=== PATIENT | female | born 1960 | race Caucasian/White ===

== ENCOUNTER 2022-05-11 12:45 | Outpatient (RCR) | payer MEDICARE, SELFPAY ==
[2022-04-23 14:03] VITALS: BP 122/70; PULSE 88; TEMP 36.4
[2022-04-23 14:08] VITALS: BMI 31.1
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
--- NOTE | 2022-04-27 13:12 | HO.PHP ---
The client called out dues to not feeling comfortable driving in the snow.
--- NOTE | 2022-04-30 11:12 | P.PNPSP_ITS ---
Subjective Subjective Date of Service: 04/30/22 Reason For Visit: MDD Medical Problems Affecting Mental Status: No Interim History: Continues with depressed mood. No SI, feels safe. Stopped gabapentin, did not like effect. Stopped olanzapine at bedtime, did not like effect. Feels Wellbutrin is not helping with depression symptoms. Has chronic pain due to right torn rotator cuff, arthritic knees. Feels pain is contributing to mood. Finding groups helpful. Medication Compliance: Intermittent Side effects from medications: No Attending Groups: Yes Review of Systems Acute medical concerns: No Medical Review of Systems: unchanged Review of Systems Review of Systems Continues with chronic pain, namely arthritic knees and right shoulder. Yes all other systems are reviewed and are negative Constitutional: Reports body ache(s) Musculoskeletal: Reports arthralgias Comments: right shoulder, bilateral knees Mental Status Exam Mental Status Exam Narrative: NAD. Tearful at times. Patient Appearance: Appropriate Patient Orientation: Person, Place, Time and Situation Level of Consciousness: Appropriate Patient Behavior: Appropriate, Cooperative and Good Eye Contact Mood Description: Depressed Affect Description: Depressed Patient Cognition Impaired: No Ability to Follow Directions: Excellent Speech Pattern: Clear Memory Description: Intact Hallucinations: None Delusions: Not Present Thought Process: Intact Thought Content: positive for Intact Depressive Symptoms: Increased Anxiety, Increased Irritability, Crying Spells, Loss of Int. in Activity, Hopelessness, Unhappiness, Increased Fatigue, Thoughts of /Suicide and Loss of Energy Judgement: Fair Diagnostics Vital Signs (24Hr): BMI result Body Mass Index 31.1 Assessment & Plan Assessment & Plan (1) Major depressive disorder, recurrent severe without psychotic features: Status: Acute Code(s): F33.2 - Major depressive disorder, recurrent severe without psychotic features Assessment and Plan: Continues with depressed mood. Stopped gabapentin and olanzapine, did not like effect. No SI, feels safe. Feels Wellbutrin is not helping with depression symptoms. Reports she will continue taking it at this time. Has chronic pain due to right torn rotator cuff, arthritic knees, which she feels is making her mood worsen. Finding groups helpful. Discussed the many medications she has tried in the past. She has stopped multiple medications over the years due to side effects, ineffectiveness. Patient states she does not like taking medications due to this. Discussed TMS as an option. She is interested in pursuing this. TMS brochure given, referral to [facility] T[facility] to be placed. Also discussed chronic pain. Patient was advised to ask her primary care provider for a referral to pain management. She stated that she would look into this. Plan 1. Continue with current [facility] plan of care. 2. TMS referral. 3. Continue Wellbutrin as ordered. 4. Follow-up as per protocol. Patient educated on: diagnosis, medication risk/benefits and therapeutic strategies Informed Consent: understands Reason for contiued partial hosp. stay Substantial Risk for: harm to self, inability to function and rapid decompensation Certification I certify that partial hospital treatment is medically necessary due to the symptoms and problems resulting from the patient's mental illness and the failure to treat the patient at the partial hospital level of care would likely result in the patient requiring inpatient psychiatric care which could not be prevented at a less intensive level of care. Total time managing care of this patient today __20__ minutes. Discharge Plan Discharge Attending provider: Dave Mendoza Medications: Discontinued olanzapine 2.5 mg tablet 1 tab PO BEDTIME No Action levothyroxine 125 mcg tablet 1 tab PO QAM olmesartan 5 mg tablet 2 tab PO DAILY bupropion HCl 300 mg tablet extended release 24 hr 1 tab PO DAILY
--- NOTE | 2022-04-30 11:39 | PC.NURSE ---
I supported Maddi in calling Dr Reyna Neal's office to see if they could cover her medical medication refills until her new PCP appointment in August 2022 as patient lost her insurance and now has a new insurance that Dr. Neal's office does not take. The Dr Neal's office is working with her to fill her medical medications until her new PCP appointment in August. She was told she should have a new prescription refill by 1:30 today.
--- NOTE | 2022-05-05 15:13 | HO.PHP ---
I called the client to discuss a statement that she made to staff after engaging in a group about discharge planning. Lorrie had been actively engaged in groups all day. In the wrap up group she stated that she will be safe and made a plan to take a bath shower this evening to help her physical pain. After the last group she stated that when she talks about discharge she could soot herself in the head. The staff questioned her and she stated that she will be safe. I call to check in and left a message to call me.
--- NOTE | 2022-05-05 16:05 | HO.PHP ---
Lorrie returned my call. She stated that she is safe and was just frustrated by her situation and her level of depression. We discussed calling crisis if needed . She states that she will if needed but she is planning on coming to [facility] tomorrow and will be safe. She had just returned from grocery shopping.
--- NOTE | 2022-05-06 10:58 | HO.PHPPROGNO ---
Subjective Subjective Date of Service: 05/06/22 Reason For Visit: MDD Medical Problems Affecting Mental Status: No Interim History: Continues with depression, anxiety, but states she feels a little better than yesterday . Denies SI. Says she has passive SI at times, but not consistently, and has no plan or intent. Feels safe. Reports she gets irritable, angry at times , says less so currently. Looks forward to TMS referral. Medication Compliance: Yes Side effects from medications: No Attending Groups: Yes Review of Systems Acute medical concerns: No Medical Review of Systems: unchanged Review of Systems Review of Systems Yes all other systems are reviewed and are negative Constitutional: Reports no additional constitutional complaints Mental Status Exam Mental Status Exam Narrative: NAD. Patient Appearance: Appropriate Patient Orientation: Person, Place, Time and Situation Level of Consciousness: Appropriate Patient Behavior: Appropriate, Cooperative and Good Eye Contact Mood Description: Depressed and Anxious Affect Description: Depressed Patient Cognition Impaired: No Ability to Follow Directions: Excellent Speech Pattern: Clear Memory Description: Intact Hallucinations: None Delusions: Not Present Thought Process: Intact Thought Content: positive for Intact and positive for Suicidal Ideation (describes as passive, at times, fleeting, no intent/plan) Depressive Symptoms: Increased Anxiety, Increased Irritability, Loss of Int. in Activity, Increased Fatigue and Thoughts of /Suicide Judgement: Fair Diagnostics Vital Signs (24Hr): BMI result Body Mass Index 31.1 Assessment & Plan Assessment & Plan (1) Major depressive disorder, recurrent severe without psychotic features: Status: Acute Code(s): F33.2 - Major depressive disorder, recurrent severe without psychotic features Assessment and Plan: Continues with depressed mood/affect, some anxiety / irritability at times. Overall she states she feels she is making progress. No SI currently, but does acknowledge having some passive SI at times, with no plan/intent. Looking forward to TMS consult, as she has tried multiple antidepressant medications, with little success. Continues with some pain, plans to call her pcp office to ask for referral to pain clinic. Finding current medications, [facility] groups brandi. (2) Cannabis abuse: Status: Acute Code(s): F12.10 - Cannabis abuse, uncomplicated Assessment and Plan: Has cut down cannabis use, no concerns at this time. Plan 1. Continue with current PHP plan of care. 2. Continue with medications as currently prescribed. 3. TMS referral. 4. Follow-up as per protocol. Patient educated on: diagnosis, medication risk/benefits and therapeutic strategies Informed Consent: understands Reason for contiued partial hosp. stay Substantial Risk for: harm to self, inability to function and rapid decompensation Certification I certify that partial hospital treatment is medically necessary due to the symptoms and problems resulting from the patient's mental illness and the failure to treat the patient at the partial hospital level of care would likely result in the patient requiring inpatient psychiatric care which could not be prevented at a less intensive level of care. Total time managing care of this patient today __20__ minutes. Discharge Plan Discharge Attending provider: Dave Mendoza Medications: New bupropion HCl 300 mg tablet extended release 24 hr 300 mg PO QAM Qty: 30 0RF Discontinued olanzapine 2.5 mg tablet 1 tab PO BEDTIME bupropion HCl 300 mg tablet extended release 24 hr 1 tab PO DAILY No Action levothyroxine 125 mcg tablet 1 tab PO QAM olmesartan 5 mg tablet 2 tab PO DAILY
--- NOTE | 2022-05-10 15:05 | HO.PHP ---
Lorrie called out sick.
--- NOTE | 2022-05-11 11:37 | HO.PHPPROGNO ---
Subjective Subjective Date of Service: 05/11/22 Reason For Visit: MDD Medical Problems Affecting Mental Status: No Interim History: Continues depressed, tearful during encounter SI with plan, denies intent. States that she feels safe. Feels Wellbutrin is not effective. Considering inpatient level of care, as she feels she is not getting better. Finding PHP/groups helpful. Medication Compliance: Yes Side effects from medications: No Attending Groups: Yes Review of Systems Acute medical concerns: No Medical Review of Systems: unchanged Review of Systems Review of Systems Yes all other systems are reviewed and are negative Constitutional: Reports no additional constitutional complaints Mental Status Exam Mental Status Exam Narrative: Tearful throughout encounter. Reports SI with a plan, denies any intent to harm herself in any way at this time. Patient Appearance: Appropriate Patient Orientation: Person, Place, Time and Situation Level of Consciousness: Appropriate Patient Behavior: Appropriate, Cooperative, Good Eye Contact and Crying Mood Description: Depressed Affect Description: Depressed Patient Cognition Impaired: No Ability to Follow Directions: Excellent Speech Pattern: Clear Memory Description: Intact Hallucinations: None Delusions: Not Present Thought Process: Intact Thought Content: positive for Intact and positive for Suicidal Ideation (has plan, no intent) Depressive Symptoms: Increased Anxiety, Increased Irritability, Loss of Int. in Activity, Hopelessness, Isolating-Friends/Family, Unhappiness, Increased Fatigue and Thoughts of /Suicide Judgement: Fair Diagnostics Vital Signs (24Hr): BMI result Body Mass Index 31.1 Assessment & Plan Assessment & Plan (1) Major depressive disorder, recurrent severe without psychotic features: Status: Acute Code(s): F33.2 - Major depressive disorder, recurrent severe without psychotic features Assessment and Plan: Patient presents with depressed mood an affect. Tearful throughout encounter. Reports that she wakes up in the morning crying, states ?it has been happening a lot, it is really hard ?. Reports that she feels exhausted. Current SI with a plan, no intent to harm herself at this time. Reports that she feels safe. Has packed bag at home to go inpatient, as she feels her symptoms have not improved. We discussed possibility of crisis eval here today. She reports that she feels safe today, and will come back tomorrow morning with her back, for possible crisis eval. Reports that she paid her rent, had her car inspected, in case she needs inpatient level of care. Requesting decrease in Wellbutrin. We discussed holding off on this today, as she has been struggling with depressive symptoms. Discussed revisiting this tomorrow morning. Plan 1. Continue with current [facility] plan of care. 2. Put patient on crisis alert. 3. [facility] team aware. 4. Follow-up tomorrow morning. Patient educated on: diagnosis, medication risk/benefits and therapeutic strategies Informed Consent: understands Reason for contiued partial hosp. stay Substantial Risk for: harm to self, inability to function and rapid decompensation Certification I certify that partial hospital treatment is medically necessary due to the symptoms and problems resulting from the patient's mental illness and the failure to treat the patient at the partial hospital level of care would likely result in the patient requiring inpatient psychiatric care which could not be prevented at a less intensive level of care. Total time managing care of this patient today __30_ minutes. Discharge Plan Discharge Attending provider: Dave Mendoza Medications: New bupropion HCl 300 mg tablet extended release 24 hr 300 mg PO QAM Qty: 30 0RF Discontinued olanzapine 2.5 mg tablet 1 tab PO BEDTIME bupropion HCl 300 mg tablet extended release 24 hr 1 tab PO DAILY No Action levothyroxine 125 mcg tablet 1 tab PO QAM olmesartan 5 mg tablet 2 tab PO DAILY
--- NOTE | 2022-05-12 09:13 | PC.NURSE ---
Maddi presented with depressed mood and tearful affect. [facility] staff Concepción Jin walked patient from the program to the ER for a crisis evaluation. I spoke to Radha RN in the behavioral health pod to give her a nurse to nurse however she stated the pod is full and to talk the ER charge nurse. I gave a nurse to nurse report to charge nurse Tonya in the ER. She stated the patient is in the ER at present.
== END 2022-05-12 23:59 | disposition admitted as inpatient to this hospital (09) ==
LOC: HO.PHPA 12:45
PROVIDERS: Visit Provider Psychiatry & Neurology Psychiatry
DX: F33.2 Major depressive disorder, recurrent severe without psychotic features (principal); F63.0 Pathological gambling; F12.10 Cannabis abuse, uncomplicated
CPT/HCPCS: 90791; 90853

== ENCOUNTER 2022-05-12 09:09 | Emergency (ER) | payer MEDICARE, SELFPAY ==
--- NOTE | 2022-05-12 07:45 | ECG_ITS ---
Test Reason : MED CLEARANCE Blood Pressure : / mmHG Vent. Rate : 086 BPM Atrial Rate : 086 BPM P-R Int : 150 ms QRS Dur : 078 ms QT Int : 350 ms P-R-T Axes : 072 -02 026 degrees QTc Int : 418 ms Normal sinus rhythm Low voltage QRS Inferior infarct , age undetermined - could be normal variant Abnormal ECG No previous ECGs available Referred By: Nereida Munoz Electronically Signed By:ARGENIS JACOME
[2022-05-12 09:22] VITALS: BP 152/89; PULSE 80; RESP 16; TEMP 36.2; O2SAT 98; BMI 30.1
[2022-05-12 10:00] LABS: Hemoglobin 12.8 g/dl (12.0-16.0); Mean Corpuscular HGB Conc 32.8 g/dl (31.0-35.0); Mean Corpuscular Hemoglobin 28.6 pg (27.0-33.0); Mean Corpuscular Volume 87.1 fL (80.0-98.0); Mean Platelet Volume 9.5 fL (9.4-12.3); Platelet Count 318 X10*3/uL (160-400); Red Blood Count 4.48 X10*6/uL (4.20-5.50); Red Cell Distribution Width 13.9 % (11.0-16.0); White Blood Count 7.6 X10*3/uL (4.8-10.8)
[2022-05-12 10:15] LABS: Anion Gap 13 (12-20); Blood Urea Nitrogen 25 mg/dL (9-16); Calcium 9.3 mg/dL (8.4-10.2); Carbon Dioxide 21 mmol/L (22-29); Chloride 111 mmol/L (96-108); Creatinine Clr Calc Pharmacy 54.9; Estimated Glomerular Filt Rate 54; Glucose Random 88 mg/dL (60-115); Potassium 4.8 mmol/L (3.3-5.1); Sodium 140 mmol/L (135-145)
--- NOTE | 2022-05-12 10:20 | ED_ITS ---
HPI - Psych General Chief Complaint: Psychiatric Symptoms Stated Complaint: Crisis Time Seen by Provider: 05/12/22 09:37 History of Present Illness HPI Narrative: Patient is a 62-year-old female with a history of depression currently on an outpatient program. Patient state she still feel very depressed despite her medication in her outpatient treatment. At thoughts about killing herself by using her car. Patient came to the emergency department instead. Related Data Home Medications Medication Instructions Recorded Confirmed levothyroxine 125 mcg tablet 1 tab PO QAM 04/23/22 04/23/22 olmesartan 5 mg tablet 2 tab PO DAILY 04/23/22 04/23/22 Previous Rx's Medication Instructions Recorded bupropion HCl 300 mg 24 hr tablet, 300 mg PO QAM #30 tabs 05/04/22 extended release Allergies Allergy/AdvReac Type Severity Reaction Status Date / Time No Known Allergies Allergy Verified 05/12/22 09:13 Review of Systems Review of Systems: No fever no chills no chest pain or shortness breath no recreational drug use. No alcohol Yes all other systems are reviewed and are negative [facility] Past Medical History Attestation statement: The following information was validated with the patient. Medical History Borderline high cholesterol Hypertension Hypothyroidism Surgical History H/O left knee surgery H/O rotator cuff surgery Social History Social History Household Members: None Patient Tobacco Use Status: Current everyday Tobacco user Smoked in Last 30 Days: Yes Use of substances other than those prescribed or required for medical reasons: Yes Substance Use Type: Marijuana Advance Directives: No Advance Directives Information Provided: Yes Healthcare Proxy: No Guardian: No Physical Exam Vital Signs: Vital Signs: Last Vital Signs Temp 98.4 F 05/12/22 14:05 Pulse 91 05/12/22 14:05 Resp 16 05/12/22 14:05 BP 116/70 05/12/22 14:05 Pulse Ox 95 05/12/22 14:05 O2 Del Method 05/12/22 14:05 BMI result Body Mass Index 30.1 Appearance: Alert. Oriented X3. No acute distress. Eyes: Pupils equal, round and reactive to light. ENT: Pharynx normal. Neck: Normal inspection. Neck supple. No lymph nodes noted. No crepitus CVS: Normal heart rate and rhythm. Pulses normal. Normal S1 and S2 Respiratory: No respiratory distress. Breath sounds normal. No Wheezing. No rales Abdomen: Soft and nontender. No rigidity. No distention. good BS x4 Skin: Skin warm and dry. Normal skin color. Normal skin turgor. Extremities: No lower extremity edema. Neurovascular intact to all extremities. No Lacerations. No Rash Neuro: Oriented X 3. No motor deficit. No sensory deficit. Moving all extermities. No slurred speech Medical Decision Making Medical Decision Making MDM Narrative: Positive suicidal ideation. Patient's alcohol was negative. Positive cannabis on tox screen. Neurologically intact. Had SI by [place] her [place] the [place]. Feel very depressed secondary to her living situation. Awaiting crisis evaluation. Currently medically cleared Differential Diagnosis Depression anxiety suicidal ideation Lab Data [facility] Lab Attestation statement: I reviewed the patient's lab results. 05/12/22 09:48 05/12/22 09:48 Labs: Lab Results 05/12/22 05/12/22 05/12/22 Range/Units 09:48 09:48 09:48 WBC 7.6 (4.8-10.8) X10*3/uL RBC 4.48 (4.20-5.50) X10*6/uL Hgb 12.8 (12.0-16.0) g/dl Hct 39.0 (37.0-47.0) % MCV 87.1 (80.0-98.0) fL MCH 28.6 (27.0-33.0) pg MCHC 32.8 (31.0-35.0) g/dl RDW 13.9 (11.0-16.0) % Plt Count 318 (160-400) X10*3/uL MPV 9.5 (9.4-12.3) fL Absolute Nucleated RBC 0.000 (0.0-0.012) X10*3/uL Nucleated RBC % (auto) 0.0 (0.0-0.2) /100WBC Sodium 140 (135-145) mmol/L Potassium 4.8 (3.3-5.1) mmol/L Chloride 111 H (96-108) mmol/L Carbon Dioxide 21 L (22-29) mmol/L Anion Gap 13 (12-20) BUN 25 H (9-16) mg/dL Creatinine 1.03 (0.5-1.4) mg/dL Estim Creat Clear Calc 54.9 Estimated GFR 54 Random Glucose 88 (60-115) mg/dL Calcium 9.3 (8.4-10.2) mg/dL Urine Color Urine Appearance Urine pH (5.0-9.0) Ur Specific Brady (1.005-1.025) Urine Protein (Neg-Trace) mg/dL Urine Glucose (UA) (Negative) mg/dL Urine Ketones (Negative) mg/dL Urine Blood (Negative) Urine Nitrite (Negative) Ur Leukocyte Esterase (Negative) Urine Opiates Screen (Not Detect) Urine Fentanyl Screen (Not Detect) Ur Barbiturates Screen (Not Detect) Ur Phencyclidine Scrn (Not Detect) Ur Amphetamines Screen (Not Detect) U Benzodiazepines Scrn (Not Detect) Urine Cocaine Screen (Not Detect) U Marijuana (THC) Screen (Not Detect) COVID-19 (RAJINDER) Negative (Negative) COVID-19 Clin Com See Note 05/12/22 05/12/22 Range/Units 10:59 10:59 WBC (4.8-10.8) X10*3/uL RBC (4.20-5.50) X10*6/uL Hgb (12.0-16.0) g/dl Hct (37.0-47.0) % MCV (80.0-98.0) fL MCH (27.0-33.0) pg MCHC (31.0-35.0) g/dl RDW (11.0-16.0) % Plt Count (160-400) X10*3/uL MPV (9.4-12.3) fL Absolute Nucleated RBC (0.0-0.012) X10*3/uL Nucleated RBC % (auto) (0.0-0.2) /100WBC Sodium (135-145) mmol/L Potassium (3.3-5.1) mmol/L Chloride (96-108) mmol/L Carbon Dioxide (22-29) mmol/L Anion Gap (12-20) BUN (9-16) mg/dL Creatinine (0.5-1.4) mg/dL Estim Creat Clear Calc Estimated GFR Random Glucose (60-115) mg/dL Calcium (8.4-10.2) mg/dL Urine Color Yellow Urine Appearance Clear Urine pH 6.0 (5.0-9.0) Ur Specific Brady 1.010 (1.005-1.025) Urine Protein Negative (Neg-Trace) mg/dL Urine Glucose (UA) Negative (Negative) mg/dL Urine Ketones Negative (Negative) mg/dL Urine Blood Negative (Negative) Urine Nitrite Negative (Negative) Ur Leukocyte Esterase Negative (Negative) Urine Opiates Screen Not Detected (Not Detect) Urine Fentanyl Screen Not Detected (Not Detect) Ur Barbiturates Screen Not Detected (Not Detect) Ur Phencyclidine Scrn Not Detected (Not Detect) Ur Amphetamines Screen Not Detected (Not Detect) U Benzodiazepines Scrn Not Detected (Not Detect) Urine Cocaine Screen Not Detected (Not Detect) U Marijuana (THC) Screen POSITIVE H (Not Detect) COVID-19 (RAJINDER) (Negative) COVID-19 Clin Com Discharge Plan Discharge Clinical Impression: Depression Patient Disposition: Still a Patient Prescriptions: No Action levothyroxine 125 mcg tablet 1 tab PO QAM olmesartan 5 mg tablet 2 tab PO DAILY bupropion HCl 300 mg tablet extended release 24 hr 300 mg PO QAM Qty: 30 0RF Interventions: [place]-Suicide Risk Severity Scale Last Done: 05/12/22 13:53
[2022-05-12 10:32] LABS: COVID-19 Test Negative (Negative); IDNOW Serial# BCCEAD1C
[2022-05-12 11:08] LABS: Appearance Urine Clear; Color Urine Yellow; Glucose Urine UA Negative (Negative); Leukocyte Esterase Urine Negative (Negative); Nitrite Urine Negative (Negative); Urine Blood Negative (Negative); Urine Ketones Negative (Negative); Urine Protein Negative (Neg-Trace)
[2022-05-12 11:19] LABS: Amphetamine Screen Urine Not Detected (Not Detect); Barbiturates, Urine Not Detected (Not Detect); Benzodiazepines Screen Urine Not Detected (Not Detect); Cannabinoid Screen Urine POSITIVE (Not Detect); Cocaine Screen Urine Not Detected (Not Detect); Fentanyl, urine Not Detected (Not Detect); Opiate Screen Urine Not Detected (Not Detect); Phencyclidine Screen Urine Not Detected (Not Detect)
[2022-05-12 14:05] VITALS: BP 116/70; PULSE 91; RESP 16; TEMP 36.9; O2SAT 95
--- NOTE | 2022-05-12 17:18 | PC.NURSE ---
preliminary med rec completed.
[2022-05-12 20:57] VITALS: BP 110/73; PULSE 85; RESP 20; TEMP 36.1; O2SAT 96
[2022-05-13 01:30] VITALS: BP 124/70; PULSE 92; RESP 18; TEMP 36.2; O2SAT 97
--- NOTE | 2022-05-13 05:58 | PC.NURSE ---
Patient slept intermittently through the night, currently sleeping, no behavior concern at this time but unpredictable, mood extremely labile, disposition per care team is section 12 inpatient bed search, medication rec completed/pending provider's approval, VSS, will continue to monitor
--- NOTE | 2022-05-13 07:08 | PC.NURSE ---
PT IS REQUESTING TO LEAVE AND WILL GO IN FRONT OF [facility] TO GET SECTION 12 REVOKED. HOWEVER PT IS SUICIDAL
--- NOTE | 2022-05-13 07:58 | MHC.CARE ---
Met with patient, who is aware that she will be seen by psychiatry around 1130/ 12 due to her desire to leave and the way her presentation has shifted since yesterday. She is begrudgingly agreeable to this.
[2022-05-13 08:37] VITALS: BP 126/82; PULSE 87; RESP 15; TEMP 37.1; O2SAT 97
[2022-05-13] MEDS: Levothyroxine Sodium 125 MCG TABLET PO (09:36)
[2022-05-13] MEDS: buPROPion HCl XL 300 MG TAB.ER.24H PO (09:36)
--- NOTE | 2022-05-13 11:00 | PC.NURSE ---
pt continues to be hyper verbal
--- NOTE | 2022-05-13 11:11 | PC.NURSE ---
called pharm at 0830 for valsartin still not on hand
--- NOTE | 2022-05-13 12:38 | PC.NURSE ---
continues to be hyper verbal, having outbursts states we are not feeding her, we are not giving her BP medications however she refused because it wasn't olmesartan. and we are not giving therapy however pt is a bed search. keeps trying to contact probate court.
--- NOTE | 2022-05-13 13:00 | PC.NURSE ---
Chapis from care team said pt was going to be discharged.
== END 2022-05-13 13:03 | disposition home or self-care (01) ==
PROVIDERS: Emergency Provider Emergency Medicine Emergency Medical Services; PCP Physician Assistant
DX: R45.851 Suicidal ideations (principal); F32.A Depression, unspecified; F41.9 Anxiety disorder, unspecified; Z20.822 Contact with and (suspected) exposure to COVID-19; I10 Essential (primary) hypertension; F17.200 Nicotine dependence, unspecified, uncomplicated; F12.90 Cannabis use, unspecified, uncomplicated; Z79.899 Other long term (current) drug therapy
CPT/HCPCS: 80048; 80307; 81003; 85027; 87635; 93005; 99285; S9485

== ENCOUNTER 2022-05-26 11:45 | Outpatient (RCR) | payer MEDICARE, SELFPAY ==
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
[2022-05-21 15:16] VITALS: BMI 29.2
--- NOTE | 2022-05-21 15:21 | PC.NURSE ---
Patient stated she is no longer taking olanzapine 2.5 mg at HS.
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
--- NOTE | 2022-05-25 08:37 | PC.NURSE ---
Maddi called out of the program this morning. She stated she started new medication Effexor, which she has been on in the past, and she feels nauseous and shaky this morning. She report she is not going to take the medication again. Plans on being at the program tomorrow.
--- NOTE | 2022-05-27 16:02 | HO.PHP ---
The client called and asked to be discharged. She states that she is doing well and feels as she does not need this level of care. 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 She thanks us for our help.
== END 2022-05-26 23:59 | disposition home or self-care (01) ==
LOC: HO.PHPA 11:45
PROVIDERS: Visit Provider Psychiatry & Neurology Psychiatry
DX: F33.2 Major depressive disorder, recurrent severe without psychotic features (principal)
CPT/HCPCS: 90791; 90853

== ENCOUNTER 2023-12-01 14:50 | Outpatient (AMB) | payer MEDICARE, SELFPAY ==
--- NOTE | 2023-12-01 14:57 | MHC.PC.OV ---
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 Allergies No Known Allergies Allergy (Verified 12/01/23 14:59) Medication List - Last Reconciled 12/01/23 by KIMBERLY Emerson bupropion HCl SR 150 mg PO BID 90 days levothyroxine 137 mcg PO DAILY olmesartan 5 mg PO DAILY Tobacco use date assessed: 12/01/23 Fall risk assessment: No Falls in past year Last assessed Fall Risk: 12/01/23 Dental Screening Dental Screen Date: 12/01/23 Did you have a dental visit in the last 12 months?: Yes Did you have a dental problem in the last 6 months where you did not have access to dental care?: No Was dental information given to patient?: Patient has dentist 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 She is having trouble finding a new therapist. Will have team reach out to pt. She reports being stable on her current meds, which i will refill. Denies any SI and HI. Pt has a hx of right hip arthritis. She was told she needs a hip replacement. Will order XR to confirm. HTN: Blood pressure is stable, managed with olmesartan 5mg. Denies chest pain, shortness of breath, headache, dizziness, and blurred vision. Pt does not have a pricing clerk, will refer. Due for mammo, will order. LDCT scan done through [facility]. She has been smoking 1 pack per day since age 17. Due for colon screen, will refer to GI. [facility] Medical History (Updated 12/01/23 @ 18:11 by KIMBERLY Emerson) Right rotator cuff tear PTSD (post-traumatic stress disorder) Borderline high cholesterol Hypertension Hypothyroidism Surgical History H/O rotator cuff surgery H/O left knee surgery Family History Other Mental health disorder Social History Household Members: None Housing: Apartment Patient Tobacco Use Status: Current everyday Tobacco user Tobacco use type: Cigarette Cigarettes Per Day: 10 e-Cigarette/Vaping Use: Never Used Substance Use Type: Marijuana service: No Current occupational status: retired Cognitive needs: No Hearing needs: No Vision needs: Yes Questionnaire PHQ-9 Over the last 2 weeks, how often have you been bothered by any of the following problems? 1. Little interest or pleasure in doing things: more than half the days 2. Feeling down, depressed, or hopeless: more than half the days 3. Trouble falling or staying asleep, or sleeping too much: more than half the days 4. Feeling tired or having little energy: more than half the days 5. Poor appetite or overeating: more than half the days 6. Feeling bad about yourself - or that you are a failure or have let yourself or your family down: more than half the days 7. Trouble concentrating on things, such as reading the newspaper or watching television: not at all 8. Moving or speaking so slowly that other people could have noticed. Or the opposite - being so fidgety or restless that you have been moving around a lot more than usual: not at all 9. Thoughts that you would be better off or of hurting yourself in some way: not at all Total score: 12 Depression Screening Interpretation: Positive (current transitioning therapist, sent note to for seeking new therapist, denies any current SI or HI) Depression Screening Follow-up: Existing condition Depression Screening Done: Yes 46815 - PHQ-9 Billing: Yes Source: Developed by Drs. Ibrahima Fountain, Tahmina Lieberman, Giovanni Seals and colleagues, with an educational ash from [employer]. Thrive Questionnaire Date Thrive assessed: 12/01/23 I am a: Patient What is your living situation today?: I have a steady place to live Within the past 12 months, did the food you bought not last and you didn't have the money to get more?: I choose not to answer this question Within the past 12 months, did you worry whether your food would run out before you got money to buy more?: I choose not to answer this question Do you have trouble paying for medicines?: No Do you have trouble getting transportation to medical appointments?: I choose not to answer this question Do you have trouble paying your heating and electricity bill?: No Do you have trouble taking care of your child, family member or friend?: No Do you have trouble with day-to-day activities such as bathing, preparing meals, shopping, managing finances, etc.?: I choose not to answer this question Are you currently unemployed and looking for a job?: No Are you interested in more education?: No Please select the resources that you would like help with: Transportation Currently or been in a relationship where the following occur: No concerns reported THRIVE Score: 0 AUDIT C Alcohol Use Questionnaire (AUDIT-C) 1. How often do you have a drink containing alcohol?: Monthly or less 2. How many drinks containing alcohol do you have on a typical day when you are drinking?: 1 or 2 3. How often do you have six or more drinks on one occasion?: Never Total Score: 1 Score Reviewed/Action Taken: Yes JOSETTE-7 AMB Questionnaire JOSETTE-7 Date JOSETTE - 7 assessed: 12/01/23 Feeling nervous, anxious, or on edge: 0 = Not at all Not being able to stop or control worryin = Not at all Worrying too much about different things: 0 = Not at all Trouble relaxin = Not at all Being so restless that it is hard to sit still: 0 = Not at all Becoming easily annoyed or irritable: 0 = Not at all Feeling afraid as if something awful might happen: 0 = Not at all Total JOSETTE-7 score (0-4 normal; 5-9 mild; 10-14 moderate; 15-21 severe): 0 Source: Developed by Drs. Ibrahima Fountain, Tahmina Lieberman, Giovanni Seals and colleagues, with an educational ash from [employer]. JOSETTE-7 Assessment Billing JOSETTE-7 Assessment Tool: JOSETTE-7 Assessment 30477 Physical exam (Primary Care) Vital Signs: Last Vital Signs Pulse 104 H 12/01/23 14:58 BP 120/74 12/01/23 14:58 Pulse Ox 97 12/01/23 14:58 Oxygen Delivery Method Room Air 12/01/23 14:58 BMI result Body Mass Index 35.4 Tobacco/Smoking Status: Tobacco use Status Tobacco use date assessed 12/01/23 12/01/23 15:02 Patient Tobacco Use Status Current everyday Tobacco 12/01/23 14:58 Tobacco use type Cigarette 12/01/23 14:58 e-Cigarette/Vaping Use Never Used 12/01/23 15:02 PHQ-9: PHQ-9 Score PHQ-9: Total score 12 12/01/23 18:10 Depression Screening Interpretation: Positive (current transitioning therapist, sent note to for seeking new therapist, denies any current SI or HI) Depression Screening Follow-up: Existing condition Thrive Assessment: Date of Thrive Assessment Date Thrive assessed 12/01/23 12/01/23 15:04 Currently or been in a relationship where the following occur: No concerns reported Const General: cooperative Nutritional Appearance: obese Neck Neck: Yes normal visual inspection and Yes no lymphadenopathy Resp Effort & Inspection: normal respiratory effort Auscultation: clear to auscultation bilaterally Cardio Rate: regular rate Rhythm: regular rhythm Heart sounds: S1 normal heart sound present and S2 normal heart sound present GI Palpation (GI): Soft to palpation and nontender Neuro Cranial nerves: Yes CN's II-XII intact bilaterally Extrem Other: unable to perform fabers test due to right hip pain. pain with performing RLE knee to chest raises and entire lower extrem raises while in supine position Right lower extremity: edema (trace) Left lower extremity: edema (trace) Psych Appearance: grossly normal Mental Status: mental status grossly normal Speech and movement: Normal speech and movement present Affect: normal affect Attitude: cooperative Thought process: Normal thought process present Thought content: Normal thought content present Insight: Good insight present (Psych) Judgement: Good judgement present (Psych) Assessment and Plan Assessment & Plan (1) Arthritis of right hip: Code(s): M16.11 - Unilateral primary osteoarthritis, right hip Plan: XR ordered (2) Hypertension: Code(s): I10 - Essential (primary) hypertension Plan: Stable (3) Major depressive disorder, recurrent severe without psychotic features: Code(s): F33.2 - Major depressive disorder, recurrent severe without psychotic features Plan: Will have team reach out to pt regarding a therapist (4) Screening for cervical cancer: Code(s): Z12.4 - Encounter for screening for malignant neoplasm of cervix Plan: Referred to pricing clerk (5) Screening for colon cancer: Code(s): Z12.11 - Encounter for screening for malignant neoplasm of colon Plan: Referred to GI (6) CKD (chronic kidney disease): Code(s): N18.9 - Chronic kidney disease, unspecified (7) Post-menopausal: Code(s): Z78.0 - Asymptomatic menopausal state Plan The patient agreed to the use of a medical facilities section director for this encounter. Scribed for HEATHER Asencio-BC by Cynthia Reyna medical facilities section director, on 12/01/2023 at 15:50 EST. Orders: Orders Complete Blood Count Auto Diff Today F33.2 - Major depressive disorder, recurrent severe without psychotic features, I10 - Essential (primary) hypertension TSH reflex Free T4 Today F33.2 - Major depressive disorder, recurrent severe without psychotic features, I10 - Essential (primary) hypertension UA CC w/rflx Micro + Cult Today F33.2 - Major depressive disorder, recurrent severe without psychotic features, I10 - Essential (primary) hypertension Lipid Panel Today F33.2 - Major depressive disorder, recurrent severe without psychotic features, I10 - Essential (primary) hypertension XR DEXA axial skeleton Today Z78.0 - Asymptomatic menopausal state Vitamin D 25-OH Total Today Z78.0 - Asymptomatic menopausal state XR hip RT min 2V Today M16.11 - Unilateral primary osteoarthritis, right hip Comprehensive Bourg. Panel Fast Today F33.2 - Major depressive disorder, recurrent severe without psychotic features, I10 - Essential (primary) hypertension MM screening mammo BI Today Z12.31 - Encounter for screening mammogram for malignant neoplasm of breast Referrals HEATING PLANT SUPERINTENDENT Referral Z12.4 - Encounter for screening for malignant neoplasm of cervix Gastroenterology Referral Z12.11 - Encounter for screening for malignant neoplasm of colon Medications: New bupropion HCl SR 150 mg PO BID 180 tabs 1RF 90 days levothyroxine 137 mcg PO DAILY 90 tabs 0RF olmesartan 5 mg PO DAILY 90 tabs 0RF Discontinued bupropion HCl XL Discontinued Reason: Doctor's Order 300 mg PO QAM 30 tabs 0RF Coding Level of Care Code New Pt Level 3 (64327) Diagnoses Arthritis of right hip M16.11 Hypertension I10 Major depressive disorder, recurrent severe without psychotic features F33.2 Screening for cervical cancer Z12.4 Screening for colon cancer Z12.11 CKD (chronic kidney disease) N18.9 Post-menopausal Z78.0 Additional Codes JOSETTE-7 Assessment Billing - JOSETTE-7 Assessment Tool: JOSETTE-7 Assessment 28236 ([id number])
[2023-12-01 14:58] VITALS: BP 120/74; PULSE 104; O2SAT 97; BMI 35.4
== END 2023-12-01 16:28 | disposition home or self-care (01) ==
PROVIDERS: PCP Nurse Practitioner Family; Visit Provider Nurse Practitioner Family
DX: M16.11 Unilateral primary osteoarthritis, right hip (principal); I12.9 Hypertensive chronic kidney disease with stage 1 through stage 4 chronic kidney disease, or unspecified chronic kidney disease; F33.2 Major depressive disorder, recurrent severe without psychotic features; Z12.4 Encounter for screening for malignant neoplasm of cervix; Z12.11 Encounter for screening for malignant neoplasm of colon; N18.9 Chronic kidney disease, unspecified; Z78.0 Asymptomatic menopausal state

== ENCOUNTER → 2023-12-01 14:50 | Outpatient (BNVA) | payer MEDICARE, SELFPAY | PROVIDERS: PCP Nurse Practitioner Family; Visit Provider Nurse Practitioner Family | DX: M16.11 Unilateral primary osteoarthritis, right hip (principal); I10 Essential (primary) hypertension; F33.2 Major depressive disorder, recurrent severe without psychotic features; N18.9 Chronic kidney disease, unspecified; Z78.0 Asymptomatic menopausal state | CPT/HCPCS: 96127; 99202 ==

== ENCOUNTER 2023-12-05 07:45 | Outpatient (REF) | payer MEDICARE, SELFPAY ==
--- NOTE | ~2023-12-05 | XR_ITS ---
EXAMINATION: XR HIP, RIGHT CLINICAL INFORMATION: Arthritis. Right hip pain. COMPARISON: None available. TECHNIQUE: Two views of the right hip. FINDINGS: Severe superior joint space narrowing with subchondral sclerosis, subchondral cystic change, and marginal osteophytes. XR/XR hip RT min 2V IMPRESSION: Severe right hip osteoarthritis. Electronically signed by: Jace Salas MD 12/11/2023 09:24 PM EDT
[2023-12-05 07:59] LABS: MANUAL DIFF FLAG NO
[2023-12-05 08:32] LABS: Basophils Absolute Auto 0.1 X10*3/uL (0.0-0.2); Basophils Percent Auto 0.7 % (0-2); Eosinophils Absolute Auto 0.4 X10*3/uL (0.0-0.4); Eosinophils Percent Auto 4.2 % (0-4); Hematocrit 45.3 % (37.0-47.0); Hemoglobin 14.8 g/dl (12.0-16.0); Imm Gran Abs Auto 0.02 X10*3/uL (0.00-0.03); Imm Gran Pct Auto 0.2 % (0.0-0.4); Lymphocytes Absolute Auto 2.9 X10*3/uL (1.2-4.9); Lymphocytes Percent Auto 33.8 % (20-40); Mean Corpuscular HGB Conc 32.7 g/dl (31.0-35.0); Mean Corpuscular Hemoglobin 29.1 pg (27.0-33.0); Mean Platelet Volume 10.2 fL (9.4-12.3); Monocytes Absolute Auto 0.5 X10*3/uL (0.1-1.2); Monocytes Percent Auto 6.3 % (2-11); Neutrophils Absolute Auto 4.7 x10*3/uL (2.0-8.3); Neutrophils Percent Auto 54.8 % (45-73); Platelet Count 317 X10*3/uL (160-400); Red Blood Count 5.09 X10*6/uL (4.20-5.50); Red Cell Distribution Width 13.5 % (11.0-16.0); White Blood Count 8.5 X10*3/uL (4.8-10.8)
[2023-12-05 09:05] LABS: Alanine Aminotransferase 19 U/L (0-31); Albumin Level 4.3 g/dL (3.5-5.0); Alkaline Phosphatase 70 U/L (39-117); Anion Gap 14 (12-20); Aspartate Amino Transferase 17 U/L (5-31); Bilirubin Total 0.7 mg/dL (0.0-1.0); Blood Urea Nitrogen 20 mg/dL (9-16); Calcium 10.1 mg/dL (8.4-10.2); Carbon Dioxide 22 mmol/L (22-29); Chloride 108 mmol/L (96-108); Cholesterol 271 mg/dL (<200); Estimated Glomerular Filt Rate 55; Glucose Fasting 96 mg/dL (60-99); HDL Cholesterol 71 mg/dL (>40); LDL Cholesterol Calculated 179 mg/dL (<100); Potassium 4.7 mmol/L (3.3-5.1); Sodium 139 mmol/L (135-145); Total Protein 7.4 g/dL (6.5-8.0); Triglycerides 109 mg/dL (<150)
[2023-12-05 09:22] LABS: TSH reflex Free T4 0.36 uIU/mL (0.32-4.0); Vitamin D 25-OH Total 12.7 ng/mL (>30)
[2023-12-05 09:42] LABS: Appearance Urine Clear; Color Urine Yellow; Glucose Urine UA Negative (Negative); Leukocyte Esterase Urine Negative (Negative); Nitrite Urine Negative (Negative); Urine Blood Negative (Negative); Urine Ketones Negative (Negative); Urine Protein Negative (Neg-Trace)
== END 2023-12-05 07:46 | disposition home or self-care (01) ==
LOC: HO.XRAY 07:45
PROVIDERS: PCP Nurse Practitioner Family; Visit Provider Nurse Practitioner Family
DX: M16.11 Unilateral primary osteoarthritis, right hip (principal); Z78.0 Asymptomatic menopausal state; I10 Essential (primary) hypertension; F33.2 Major depressive disorder, recurrent severe without psychotic features
CPT/HCPCS: 36415; 73502; 80053; 80061; 81003; 82306; 84443; 85025

== ENCOUNTER 2024-01-24 12:58 | Outpatient (REF) | payer MEDICARE, SELFPAY ==
--- NOTE | ~2024-01-24 | MM_ITS ---
EXAMINATION: MM SCREENING DIGITAL BREAST TOMOSYNTHESIS, BILATERAL CLINICAL INFORMATION: Screening. Asymptomatic. COMPARISON: Mammography: Comparison is made with available priors TECHNIQUE: Digital breast mammography with tomosynthesis is performed in both the craniocaudal and mediolateral oblique views along with computer-aided detection (CAD). FINDINGS: There are scattered areas of fibroglandular density (ACR BI-RADS breast composition Category b). There are no significant masses, abnormal calcifications, or other abnormalities. MM/MM tomosynthesis screening BI IMPRESSION: No mammographic evidence of malignancy. ASSESSMENT: BI-RADS BI-RADS 1 - Negative RECOMMENDATION: Routine annual mammography screening. 1 year F/U This examination should not preclude the clinical evaluation of a suspicious palpable abnormality. This patient's information was entered into a reminder system with a target due date for their next mammogram. Electronically signed by: Shanice Hackett DO 02/01/2024 08:18 AM [facility]
--- NOTE | ~2024-01-24 | MM_ITS ---
EXAMINATION: BONE DENSITOMETRY CLINICAL INDICATION: Asymptomatic menopausal state. COMPARISON: This is the patient's baseline examination. TECHNIQUE: Using a [employer] DXA System (software version: 13.1) manufactured by [employer], dual-energy x-ray absorptiometry was performed of the lumbar spine and left hip. The images are of good technical quality. Summary results are attached. FINDINGS: LEFT FEMUR, NECK: BMD 0.835 g/cm2, Z-score -0.6, T-score -1.5, osteopenia. LEFT FEMUR, TOTAL: BMD 0.924 g/cm2, Z-score -0.1, T-score -0.7, normal. AP SPINE L1-L2 (excluding L3 and L4): The data of L1-L4 has been changed to exclude the L3 and L4 vertebral bodies, because degenerative changes at these levels may cause overestimation of lumbar spine density. BMD 1.038 g/cm2, Z-score -0.3, T-score -1.1, osteopenia. IDENTIFIED RISK FACTORS: Kidney disease, current smoker, height loss, menopause. HISTORY OF FRACTURE: None listed. MEDICATIONS: Vitamin D. MM/XR DEXA axial skeleton IMPRESSION: 1. DIAGNOSIS: Osteopenia based on the lowest T-score value of -1.5 in the femoral neck applying World Health Organization criteria. 2. 10-YEAR FRACTURE RISK PREDICTION, FRAX: Major osteoporotic fracture (clinical spine, forearm, hip or shoulder) 8.1%. Hip fracture 1.3%. 3. Treatment Recommendations: NOF guidelines recommend consideration for treatment in postmenopausal women and men age 50 and older presenting with the following: -A hip or vertebral (clinical or morphometric) fracture. -T-score less than or equal to -2.5 at the femoral neck or spine after appropriate evaluation to exclude secondary causes. -Low bone mass at the hip or spine and a 10-year fracture probability by FRAX of greater than or equal to 3% for hip fracture or greater than or equal to 20% for major osteoporotic fracture based on the [place] adapted WHO algorithm. 4. Other Recommendations: All treatment decisions require clinical judgment and consideration of individual patient factors, including patient preferences, comorbidities, previous drug use, risk factors not captured in the FRAX model (e.g. frailty, falls, vitamin D deficiency, increased bone turnover, interval significant decline in bone density) and possible under or overestimation of fracture risk by FRAX. Additional medical evaluation for secondary cause of low bone mineral density may be appropriate. FUTURE SCAN RECOMMENDATION: People with diagnosed cases of osteoporosis or at high risk for fracture should have regular bone mineral density tests. For patients eligible for Medicare, routine testing is allowed once every 2 years. The testing frequency can be increased to one year for patients who have rapidly progressing disease, those who are receiving or discontinuing medical therapy to restore bone mass, or have additional risk factors. Electronically signed by: Ranjit Wilson MD 01/25/2024 02:39 PM [facility]
== END 2024-01-24 12:59 | disposition home or self-care (01) ==
LOC: HO.MAMMO 12:58
PROVIDERS: PCP Nurse Practitioner Family; Visit Provider Nurse Practitioner Family
DX: Z12.31 Encounter for screening mammogram for malignant neoplasm of breast (principal); Z13.820 Encounter for screening for osteoporosis; Z78.0 Asymptomatic menopausal state
CPT/HCPCS: 77063; 77067; 77080

== ENCOUNTER → 2024-01-24 13:15 | Outpatient (BNV) | payer MEDICARE, SELFPAY | PROVIDERS: PCP Nurse Practitioner Family; Visit Provider Internal Medicine | DX: Z12.31 Encounter for screening mammogram for malignant neoplasm of breast (principal) | CPT/HCPCS: 77063; 77067 ==

== ENCOUNTER 2024-02-06 10:54 | Outpatient (AMB) | payer MEDICARE, SELFPAY ==
--- NOTE | 2024-02-06 10:57 | A.OFFVIS_ITS ---
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 Patient reports that she has had ongoing pain for about 2 years now. She did complete a course of physical therapy which was mildly helpful. Has had an injection that was done about a year ago which was helpful for about 1 week. Not interested in repeat injections. Pain all the time worse with activity. She is unable to take NSAIDS due to kidney disease and avoids Tylenol as it has not been effective for pain control. 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 Patient reports that she has had ongoing pain for about 2 years now. She did complete a course of physical therapy which was mildly helpful. Has had an injection that was done about a year ago which was helpful for about 1 week. Not interested in repeat injections. Pain all the time worse with activity. She is unable to take NSAIDS due to kidney disease and avoids Tylenol as it has not been effective for pain control. Her pain has limited her ability to walk comfortably and she finds this frustrating. She has hyperlipidemia and would like to control her health with activity but finds it too painful to do this consistently. [facility] Medical History (Updated 01/25/24 @ 18:07 by HEATHER Emerson-SATYA) Osteopenia Right rotator cuff tear PTSD (post-traumatic stress disorder) Borderline high cholesterol Hypertension Hypothyroidism Surgical History (Updated 02/06/24 @ 11:02 by Edith Degroot [facility]) H/O rotator cuff surgery H/O left knee surgery Family History Other Mental health disorder Social History Household Members: None Housing: Apartment Patient Tobacco Use Status: Current everyday Tobacco user Tobacco use type: Cigarette Cigarettes Per Day: 10 e-Cigarette/Vaping Use: Never Used Substance Use Type: Marijuana service: No Current occupational status: retired Cognitive needs: No Hearing needs: No Vision needs: Yes Physical Exam Vital Signs: BMI result Body Mass Index 35.4 Const General: cooperative, healthy appearing, no acute distress, well developed and alert HEENT Head: Yes normal to inspection, Yes normocephalic and Yes atraumatic Mouth: moist mucous membranes Eyes General: appearance normal, both eyes and all related structures EOM: EOMs intact bilaterally Chest Other: no audible wheezing. Resp Other: No audible wheezing Effort & Inspection: normal respiratory effort Back/Spine/Pelvis Cervical Spine: normal cervical lordosis Skin General skin exam: no rashes or lesions noted Neuro General: no focal motor deficits Extrem Other: Trendelenburg gait on the right Positive impingement test on the right 0-130 degrees of flexion Psych Appearance: grossly normal and well kempt Mental Status: mental status grossly normal Speech and movement: Normal speech and movement present Affect: normal affect Attitude: cooperative Results Reviewed Results Reviewed: I personally reviewed relevant radiographs. There is severe osteoarthritis of the right hip Assessment & Plan Assessment & Plan (1) Osteoarthritis of right hip: Code(s): M16.11 - Unilateral primary osteoarthritis, right hip Category: Medical Plan: This is a very pleasant 63-year-old woman with severe osteoarthritis of the right hip. She has tried injections, physical therapy and nonnarcotic pain medication but is unable to ambulate more than a few minutes without pain. This limits her ability to exercise and as a consequence her daily life is more difficult. She feels the quality of her life is diminished and would like to find a definitive treatment. My recommendation is for total hip arthroplasty. She did have brief benefit from a hip injection. I discussed with her the procedure including the risks, benefits and alternatives. I explained the risk of infection, fracture, dislocation well as medical complications associated with surgery in general. She expressed understanding and we will begin our preoperative clearance process. Coding Level of Care Code Est Pt Level 4 (49029) Diagnoses Osteoarthritis of right hip M16.11
[2024-02-06 10:58] VITALS: BMI 35.4
== END 2024-02-06 11:33 | disposition home or self-care (01) ==
PROVIDERS: PCP Nurse Practitioner Family; Visit Provider Orthopaedic Surgery
DX: M16.11 Unilateral primary osteoarthritis, right hip (principal)
CPT/HCPCS: 99214

== ENCOUNTER → 2024-02-06 10:54 | Outpatient (BNVA) | payer MEDICARE, SELFPAY | PROVIDERS: PCP Nurse Practitioner Family; Visit Provider Orthopaedic Surgery | DX: M16.11 Unilateral primary osteoarthritis, right hip (principal) | CPT/HCPCS: 99212 ==

== ENCOUNTER 2024-02-13 09:28 | Outpatient (AMB) | payer MEDICARE, SELFPAY ==
--- NOTE | 2024-02-13 09:33 | MHC.OFFVIS ---
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 No complaints. Last Pap/HPV , no reports available Last Mammogram was in 01/28 BI-RADS 1 No previous screening colonoscopy PFSH Medical History Osteopenia Right rotator cuff tear PTSD (post-traumatic stress disorder) Borderline high cholesterol Hypertension Hypothyroidism Surgical History H/O rotator cuff surgery H/O left knee surgery Family History Other Mental health disorder Social History Household Members: None Housing: Apartment Patient Tobacco Use Status: Current everyday Tobacco user Tobacco use type: Cigarette Cigarettes Per Day: 10 e-Cigarette/Vaping Use: Never Used Substance Use Type: Marijuana service: No Current occupational status: retired Cognitive needs: No Hearing needs: No Vision needs: Yes Female Reproductive History Menstrual Date of Mammogram: 01/24/24 Review of Systems Const All systems reviewed & are unremarkable except as noted in HPI and below Card Reports as per HPI Resp Reports as per HPI GI Reports as per HPI and Reports no additional complaints Reports as per HPI Physical Exam Vital Signs: Last Vital Signs BP 120/70 02/13/24 09:34 BMI result Body Mass Index 35.4 Const General: cooperative, healthy appearing and comfortable Chest Chest palpation & inspection: normal inspection of the chest and normal palpation of entire chest wall Breast/axilla inspection: normal inspection of the breasts and normal inspection of the axillae Breast/axilla palpation: normal palpation of the breasts, normal palpation of the axillae and no axillary lymphadenopathy Resp Effort & Inspection: normal respiratory effort Auscultation: clear to auscultation bilaterally Percussion: percussion normal Cardio Palpation: normal PMI Rate: regular rate Rhythm: regular rhythm Heart sounds: no murmurs and no rubs Peripheral pulses: Peripheral pulses 2+ throughout GI Inspection: Yes normal to inspection Palpation (GI): Soft to palpation, nontender, no guarding, not rigid and No hepatosplenomegaly present Percussion: Yes normal to percussion Auscultation: normal bowel sounds Rectal Exam - Female: deferred General: Yes bladder normal to palpation External Female Exam: No lesion Speculum Exam - Vagina: normal appearance of the vagina, normal palpation, normal vaginal discharge and not erythematous Speculum Exam - Cervix: normal appearance of the cervix and normal palpation Bimanual exam- vagina & uterus: normal bimanual exam, normal palpation, bladder normal to palpation, consistency normal, normal palpation and enlarged Bimanual Exam- Adnexa, other: normal adnexae, no masses and no tenderness Assessment & Plan Assessment & Plan (1) Well woman exam: Code(s): Z01.419 - Encounter for gynecological examination (general) (routine) without abnormal findings Category: Medical Plan: Co testing done. Counseled the patient about the recommended dietary allowance of 1200 mg of Calcium & 600 IU of vitamin D. Instructions given to patient to schedule next screening Mammogram in 01/29. The patient has an appointment with GI soon for screening colonoscopy . The patient was instructed to perform monthly self-breast exams and schedule annual exam in a year. All questions answered and the patient verbalized understanding. (2) Enlarged uterus: Code(s): N85.2 - Hypertrophy of uterus Category: Medical Plan: Discussed with the patient the finding on pelvic exam, enlarged uterus. Pelvic ultrasound ordered. Instructions given the patient to schedule a pelvic ultrasound follow-up appointment. All questions answered, the patient verbalized understanding. Orders: Orders US pelvic and transvaginal Today N85.2 - Hypertrophy of uterus Coding Level of Care Code Est Pt Prev Care 40-64y(42491) Diagnoses Well woman exam Z01.419 Enlarged uterus N85.2
[2024-02-13 09:34] VITALS: BP 120/70; BMI 35.4
== END 2024-02-13 10:42 | disposition home or self-care (01) ==
PROVIDERS: PCP Nurse Practitioner Family; Visit Provider Obstetrics & Gynecology
DX: Z01.419 Encounter for gynecological examination (general) (routine) without abnormal findings (principal); N85.2 Hypertrophy of uterus
CPT/HCPCS: 99396

== ENCOUNTER 2024-02-13 09:28 | Outpatient (REF) | payer MEDICARE, SELFPAY ==
[2024-02-14 11:08] LABS: HPV 16,18/45 See PAP report
== END 2024-02-13 09:29 | disposition home or self-care (01) ==
LOC: HO.LNP 09:28
PROVIDERS: PCP Nurse Practitioner Family; Visit Provider Obstetrics & Gynecology
DX: Z01.411 Encounter for gynecological examination (general) (routine) with abnormal findings (principal); N85.2 Hypertrophy of uterus
CPT/HCPCS: 87624; 88175; 99396; 99459

== ENCOUNTER 2024-02-16 13:22 | Outpatient (REF) | payer MEDICARE, SELFPAY ==
--- NOTE | ~2024-02-16 | US_ITS ---
EXAMINATION: US PELVIS CLINICAL INFORMATION: Hypertrophy of uterus. COMPARISON: None available. TECHNIQUE: Ultrasound of the pelvis is performed using both transabdominal and transvaginal transducers along with Doppler. Transvaginal imaging is performed due to inadequate visualization transabdominally. FINDINGS: Uterus: The uterus is enlarged, retroverted and retroflexed measuring 10.1 x 9.0 x 8.4 cm for a volume of 400 mL. The double wall endometrial thickness could not be measured as it was poorly seen. There is a large shadowing uterine mass present measuring 7.9 x 7.1 x 7.4 cm. Difficult to ascertain whether this is arising from the myometrium or endometrium. Adnexa: Neither ovary could be seen. No free fluid is detected. US/US pelvic and transvaginal IMPRESSION: Enlarged uterus with a large 7.9 cm mass. This could represent a large fibroid but the endometrium is not seen and endometrial mass cannot be excluded. Pelvic MRI is recommended for further evaluation. Electronically signed by: Mynor Box MD 02/17/2024 09:23 AM [facility]
== END 2024-02-16 13:23 | disposition home or self-care (01) ==
LOC: HO.US 13:22
PROVIDERS: PCP Nurse Practitioner Family; Visit Provider Obstetrics & Gynecology
DX: N85.2 Hypertrophy of uterus (principal)
CPT/HCPCS: 76830; 76856

== ENCOUNTER 2024-02-20 09:20 | Outpatient (AMB) | payer MEDICARE, SELFPAY ==
--- NOTE | 2024-02-20 09:23 | MHC.OFFVIS ---
Vital Signs 02/20/24 09:31 Height 5 ft 3 in Weight 200 lb BMI 35.4 Intake Visit Reasons: ultrasound results Allergies No Known Allergies Allergy (Verified 02/13/24 09:46) HPI Comments Details: Presenting for ultrasound follow-up done on 02/16/2024 with showed the following: IMPRESSION: Enlarged uterus with a large 7.9 cm mass. This could represent a large fibroid but the endometrium is not seen and endometrial mass cannot be excluded. Pelvic MRI is recommended for further evaluation Last co testing in 02/27 was negative PFSH Medical History Osteopenia Right rotator cuff tear PTSD (post-traumatic stress disorder) Borderline high cholesterol Hypertension Hypothyroidism Surgical History H/O rotator cuff surgery H/O left knee surgery Family History Other Mental health disorder Social History Household Members: None Housing: Apartment Patient Tobacco Use Status: Current everyday Tobacco user Tobacco use type: Cigarette Cigarettes Per Day: 10 e-Cigarette/Vaping Use: Never Used Substance Use Type: Marijuana service: No Current occupational status: retired Cognitive needs: No Hearing needs: No Vision needs: Yes Review of Systems Const All systems reviewed & are unremarkable except as noted in HPI and below Reports as per HPI and Reports no additional complaints GI Reports no additional complaints Reports no additional complaints Physical Exam Vital Signs: BMI result Body Mass Index 35.4 Assessment & Plan Assessment & Plan (1) Enlarged uterus: Comment: Chronic kidney disease rule out urethral instructions Back pain rule out secondary to uterine mass Possible endometrial mass Code(s): N85.2 - Hypertrophy of uterus Category: Medical Plan: Discussed with the patient the finding on ultrasound, possible causes could be myoma, myosarcoma was endometrial mass in its possible pressure impact of the uterine mass on bilateral ureter with possibly leading to kidney injury, chronic back pain; discussed with the patient differential diagnosis including but not limited to uterine myoma, myosarcoma or endometrial mass , recommended MRI of the pelvis with chronic kidney disease contrast dose. MRI of the pelvis ordered, with chronic kidney disease contact dose, instructions given the patient to schedule an MRI and a follow-up appointment with possible endometrial biopsy within 2 weeks. All questions answered, the patient verbalized understanding Orders: Orders MR pelvis wo/w con Today N85.2 - Hypertrophy of uterus Coding Level of Care Code Est Pt Level 3 (48256) Diagnoses Enlarged uterus N85.2
[2024-02-20 09:31] VITALS: BMI 35.4
== END 2024-02-20 09:57 | disposition home or self-care (01) ==
LOC: HO.HWS 09:20
PROVIDERS: PCP Nurse Practitioner Family; Visit Provider Obstetrics & Gynecology
DX: N85.2 Hypertrophy of uterus (principal)
CPT/HCPCS: 99213

== ENCOUNTER → 2024-02-20 09:20 | Outpatient (BNVA) | payer MEDICARE, SELFPAY | PROVIDERS: PCP Nurse Practitioner Family; Visit Provider Obstetrics & Gynecology | DX: N85.2 Hypertrophy of uterus (principal) | CPT/HCPCS: 99212 ==

== ENCOUNTER 2024-03-08 13:40 | Outpatient (AMB) | payer MEDICARE, SELFPAY ==
--- NOTE | 2024-03-08 13:46 | A.OFFVIS_ITS ---
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 The double wall endometrial thickness could not be measured as it was poorly seen. There is a large shadowing uterine mass present measuring 7.9 x 7.1 x 7.4 cm. Difficult to ascertain whether this is arising from the myometrium or endometrium. Adnexa: Neither ovary could be seen. No free fluid is detected No history of any vaginal bleeding. The patient gives a history of uterine fibroids 8 years ago done in outside facility in [place]. Last co testing was done in 02/27 was negative COUNT INCLUDES THE [facility] Medical History Osteopenia Right rotator cuff tear PTSD (post-traumatic stress disorder) Borderline high cholesterol Hypertension Hypothyroidism Surgical History H/O rotator cuff surgery H/O left knee surgery Family History Other Mental health disorder Social History Household Members: None Housing: Apartment Patient Tobacco Use Status: Current everyday Tobacco user Tobacco use type: Cigarette Cigarettes Per Day: 10 e-Cigarette/Vaping Use: Never Used Substance Use Type: Marijuana service: No Current occupational status: retired Cognitive needs: No Hearing needs: No Vision needs: Yes Review of Systems Const All systems reviewed & are unremarkable except as noted in HPI and below Reports as per HPI and Reports no additional complaints GI Reports no additional complaints Reports no additional complaints Office Procedures Endometrial Biopsy Details: The patient was counseled regarding the indication and benefits of endometrial sampling to rule out endometrial pathology including not limited to endometrial hyperplasia or endometrial cancer and others; The alternatives (Either do nothing vs. hysteroscopy D&C) & the risks were discussed with the patient including but not limited: pain, uterine perforation, bleeding, infection, possible injury to bladder, bowel, ureter, possible need for blood transfusion with all its possible risks. The patient verbalized understanding all questions answered and signed consent. The patient was placed into the dorsal lithotomy position; a speculum was inserted in the vagina. Using aseptic technique for the procedure, the cervix was cleansed with Betadine. The anterior lip of the cervix was grasped with a single tooth tenaculum. The uterus was sounded to 7 cm with a 4 mm Pipelle was used. Tissues samples were obtained and placed in formalin, in a patient labeled container and sent to the pathology department. At the end of the procedure, there was minimal bleeding noted The patient tolerated the procedure well and was discharged in good condition with the following instructions: Nothing in the vagina until the bleeding stops. No sex until the bleeding stops, to call if any of the following occurs: fever (>100.4), flu-like symptoms, abdominal pain, heavy bleeding, four smelling vaginal discharge. The patient was instructed to schedule a Follow up appointment in 2 weeks to discuss pathology results of the biopsy and treatment options. This note was generated with a voice recognition program. Some errors may have been overlooked during the review of this note. Sometimes these errors may affect the content or meaning of a given sentence. 79328-[place] Biopsy Assessment & Plan Assessment & Plan (1) Uterine mass: Code(s): N85.8 - Other specified noninflammatory disorders of uterus Category: Medical Plan: Discussed with the patient the finding of ultrasound showing a central uterine mass of uncertain origin, myometrium versus endometrium, will proceed with endometrial biopsy to rule out endometrial pathology and order pelvic MRI. EMB done, see procedure note. Pelvic MRI ordered. The patient has side medical release form to be sent to the side facility where her previous ultrasound was done 8 years ago. Instructions given the patient to schedule pelvic MRI an EMB follow-up appointment within 2 weeks. All questions answered, the patient verbalized understanding Orders: Orders AMB Endometrial Biopsy Today N85.8 - Other specified noninflammatory disorders of uterus Coding Level of Care Code Est Pt Level 3 (60971) Diagnoses Uterine mass N85.8 CPT Codes Endometrial Biopsy - CPT: 95939-Yiwcbnkdehm Biopsy ([id number])
== END 2024-03-08 14:06 | disposition home or self-care (01) ==
PROVIDERS: PCP Nurse Practitioner Family; Visit Provider Obstetrics & Gynecology
DX: N85.8 Other specified noninflammatory disorders of uterus (principal)
CPT/HCPCS: 58100; 99213

== ENCOUNTER 2024-03-08 13:40 | Outpatient (REF) | payer MEDICARE, SELFPAY | END 2024-03-08 13:41 | disposition home or self-care (01) | LOC: HO.LNP 13:40 | PROVIDERS: PCP Nurse Practitioner Family; Visit Provider Obstetrics & Gynecology | DX: N85.8 Other specified noninflammatory disorders of uterus (principal) | CPT/HCPCS: 58100; 88305; 99212 ==

== ENCOUNTER → 2024-03-19 10:20 | Outpatient (BNV) | payer MEDICARE, SELFPAY | PROVIDERS: PCP Nurse Practitioner Family; Visit Provider Radiology Diagnostic Radiology | DX: N85.2 Hypertrophy of uterus (principal) | CPT/HCPCS: 72197 ==

== ENCOUNTER 2024-03-19 10:21 | Outpatient (REF) | payer MEDICARE, SELFPAY ==
--- NOTE | ~2024-03-19 | MR_ITS ---
EXAMINATION: MR PELVIS WITHOUT THEN WITH IV CONTRAST HISTORY: N85.2 - Hypertrophy of uterus. TECHNIQUE: Axial T1, and axial, sagittal, and coronal T2 weighted MR images of the pelvis were obtained. Subsequently, axial fat-suppressed T1-weighted images were obtained before and after the intravenous administration of 9 mL Gadavist. COMPARISON: Correlation is made with a pelvic ultrasound dated 02/16/2024. FINDINGS: There is a 7.6 x 8.0 x 8.1 cm uterine mass which is hypointense on both T1 and T2-weighted images, compatible with a fibroid. There is a central T2 hyperintensity consistent with degeneration. After the administration of intravenous gadolinium, there is marked homogeneous enhancement of the mass, except for the central degenerating portion. The mass appears intramural in location with displacement of the endometrial stripe anteriorly. No additional fibroids are identified. The endometrial stripe is not thickened. The right ovary measures 2.3 x 1.8 x 2.2 cm and is unremarkable in appearance. The left ovary measures 2.3 x 2.1 x 1.4 cm and is unremarkable in appearance. No ascites or pelvic lymphadenopathy is identified. The urinary bladder is partially collapsed. Incidental note is made of subchondral lucency in the weightbearing portion of the right femoral head with associated mild bone marrow edema and slight femoral head flattening. These findings are consistent with osteonecrosis. MR/MR pelvis wo/w con IMPRESSION: 1. 7.6 x 8.0 x 8.1 cm intramural fibroid as described. 2. Avascular necrosis of the right femoral head. Electronically signed by: Ibrahima Medina MD 03/21/2024 07:10 AM [facility] [place]
[2024-03-19] MEDS: gadobutroL 10 ML VIAL IVPUSH (11:17)
== END 2024-03-19 10:22 | disposition home or self-care (01) ==
LOC: HO.MRI 10:21
PROVIDERS: PCP Nurse Practitioner Family; Visit Provider Obstetrics & Gynecology
DX: N85.2 Hypertrophy of uterus (principal)
CPT/HCPCS: 72197; A9585

== ENCOUNTER 2024-04-03 09:55 | Outpatient (AMB) | payer MEDICARE, SELFPAY ==
--- NOTE | 2024-04-03 09:57 | MHC.OFFVIS ---
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 There is a central T2 hyperintensity consistent with degeneration. After the administration of intravenous gadolinium, there is marked homogeneous enhancement of the mass, except for the central degenerating portion. The mass appears intramural in location with displacement of the endometrial stripe anteriorly. No additional fibroids are identified. The endometrial stripe is not thickened. The right ovary measures 2.3 x 1.8 x 2.2 cm and is unremarkable in appearance. The left ovary measures 2.3 x 2.1 x 1.4 cm and is unremarkable in appearance. No ascites or pelvic lymphadenopathy is identified. The urinary bladder is partially collapsed. Incidental note is made of subchondral lucency in the weightbearing portion of the right femoral head with associated mild bone marrow edema and slight femoral head flattening. These findings are consistent with osteonecrosis. 02/27 pelvic ultrasound showed the following: 'IMPRESSION: Enlarged uterus with a large 7.9 cm mass. This could represent a large fibroid but the endometrium is not seen and endometrial mass cannot be excluded. Pelvic MRI is recommended for further evaluation. 03/31 EMB pathology showed the following: Benign atrophic endometrium with few fragments of benign endometrium/lower uterine segment, and scant benign endocervical glandular and squamous epithelium (see comment). Comment: No atypia or carcinoma seen however, the findings do not explain a mass lesion and imaging and clinical correlation is necessary to assess the need for further sampling 02/27 co testing negative PFSH Medical History Osteopenia Right rotator cuff tear PTSD (post-traumatic stress disorder) Borderline high cholesterol Hypertension Hypothyroidism Surgical History H/O rotator cuff surgery H/O left knee surgery Family History Other Mental health disorder Social History Household Members: None Housing: Apartment Patient Tobacco Use Status: Current everyday Tobacco user Tobacco use type: Cigarette Cigarettes Per Day: 10 e-Cigarette/Vaping Use: Never Used Substance Use Type: Marijuana service: No Current occupational status: retired Cognitive needs: No Hearing needs: No Vision needs: Yes Review of Systems Const All systems reviewed & are unremarkable except as noted in HPI and below Reports as per HPI and Reports no additional complaints GI Reports no additional complaints Reports no additional complaints Assessment & Plan Assessment & Plan (1) Uterine myoma: Code(s): D25.9 - Leiomyoma of uterus, unspecified Category: Medical Plan: Discussed with the patient the findings on pelvic ultrasound & the risk of myosarcoma; discussed with the patient the options of treatment including expectant management versus hysterectomy; the pros and cons, risks benefits of each approach were discussed with the patient including the fact that in cases of myosarcoma, surgical treatment can lead to early diagnosis and positively affects the prognosis; after further discussion, the patient decided to proceed with expectant management. Will proceed with CT scan of abdomen and pelvis is the patient has history of stage 3 kidney disease to rule out obstruction of the ureter as a cause of her kidney disease if not, will repeat pelvic ultrasound periodically. Instructions given to patient to schedule a CT scan and a follow-up appointment within 2 weeks. All questions answered, the patient verbalized understanding and agreed with the plan . (2) Osteonecrosis of hip: Comment: Avascular necrosis of the right femoral head by MRI Code(s): M87.9 - Osteonecrosis, unspecified Category: Medical Plan: Discussed with the patient the finding on MRI showing osteonecrosis of the hip, recommended to contact her PCP for further management, the patient was seen by ortho and is planning hip replacement Orders: Orders CT abdomen pelvis w IV con Today D25.9 - Leiomyoma of uterus, unspecified Coding Level of Care Code Est Pt Level 3 (75990) Diagnoses Uterine myoma D25.9 Osteonecrosis of hip M87.9
--- OUTSIDE RECORDS SUMMARY | 2024-04-03 10:36 | XMS_ITS | Data Portability ---
Author Organization [place] - [facility], [facility] Address [address] [place] [address] Assessment No assessment recorded. Plan of Treatment Reminders Order Date Submit Date Provider Last Modified By Organization Details Last Modified Time Details Appointments None recorded. Lab pap, IG + HPV 2016 [facility], [address] [place], [address] 17:55:40 Referral None recorded. Procedures None recorded. Surgeries None recorded. Imaging MAMMO, screening, digital, bilateral, w/ CAD 2016 [email or web address] Not available 09:12:46 US, transvagina l 2016 TSERING Not available 12:45:49 Medication Orders None recorded. Patient TargetsNo targets recorded. Patient Instructions Encounter Date Encounter Id Patient Instructions Last Modified By Organization Details Last Modified Time 12/07/2016 [id number] tips to help you stay healthy [email or web address] Not available 12/07/2016 14:05:26 ? N ormal advertiser exam. . Mammogram recommended yearly after 40 by the ACS and ACOG. Colonoscopy recommended at age 50 unless family history dictates sooner. [email or web address] Not available 12/07/2016 13:25:46 Reason for Referral None Reported. Results Created Date Observation Date Name Description Value Unit Range Abnormal Flag Note LastModifiedBy Organization Detail LastModifiedTime 12/08/19 17 12/09/2016 pap, IG + HPV report GYNEC OLOGI EREN CYTOL OGY REPOR T A. THINP REP PAP (IMAG ER) WITH HPV SCREE N AND REFLE X TO HPV 16,18 /45: SPECI MEN ADEQU ACY: SATIS FACTO RY FOR EVALU ATION . INTER PRETA TION: NEGAT LIBRA FOR INTRA EPITH ELIAL LESMURPHY N OR ACLLUM KUNZ . Elect cristofer peng Anastacia d Out By: ZE CORDOVA Y, CT( CP) DIGNA CYN REDD MAN, CT( CP) CLINI EREN INFOR MATIO N: LMP: NI Z01.4 19 Numbe r of vials /slid es submi tted: 1 Speci men sourc e: CERVI X Abnor mal Pap Date: NI Autom ated presc reeni ng of all liqui d based speci mens is perfo rmed by the ThinP rep Imagi ng onur Drake other [place]. The Pap test is a scree yamile test with an inher ent false negat libra rate. [facility] , [address] [place] [address] CLIA [id number] CL-PO [id number]. Not Available [facility] [address] [place], [address] 12/09/2016 17:55:40 12/08/19 17 12/09/2016 pap, IG + HPV HPV result Negati ve negati ve APTIM A HPV assay detec ts 14 high risk HPV types (HPV 16,18 ,31,3 3,35, 39,45 , 51,52 ,56,5 8,59, 66,68 ). The assay is FDA appro mel for testi ng ThinP rep liqui d Pap vials but not FDA appro mel for detec ting HPV in SureP ath liqui d Pap speci mens. In-ho use valid ation has shown the assay can detec t all HPV types from this sourc e. Not Available [facility] [address] [place] [address], [address] 12/09/2016 17:55:40 12/15/19 17 12/14/2016 US, trans vagin al No observ ation record ed. [email or web address] [address], [address], 12/14/2016 16:58:17 Result Notes None recorded. Problems Name Problem SNOMED Code Status Onset Date Resolution Date Notes Provider Name and Address Organization Details Recorded Time Hypertensive disorder 80833684 Active 2013 Not Available [facility] 5 19:17:16 Hypothyroidis m 92782915 Active 2013 Not Available [facility] 5 19:17:16 Sleep apnea 91663447 Active 2013 Not Available [facility] 5 19:17:16 Major depressive disorder 207132028 Active 2013 Not Available [facility] 5 19:17:16 Problem Notes None recorded. Procedures Surgical History Date Name Laterality Status Provider Name and Address Organization Details Recorded Time Orthopedic Surgery completed Not Available [facility] 08/02/2014 14:10:45 Orthopedic Surgery completed Angela Scott [facility] 12/07/2016 13:16:29 Imaging Results Imaging Date Name Status LastModified by Organization Details LastModified Time 12/14/2016 US, transvaginal completed [facility] [address], [address], 12/14/2016 16:58:17 Procedure Notes None recorded. Medical Equipment None Reported. Allergies Allergen ID Allergen Name Allergen Category Reaction Reaction Severity Criticality Documentation Date Start Date Code Code System Note Provider Name and Address Organization Details Recorded Time 191175 No known allergy (situatio n) Not available Not available Not available Not available 08/06/20142013 52475 6003 SNOMED Not Available [facility] 5 18:58:53 No known drug allergies Medications Name Sig Start Date Stop Date Status Note LastModified by Organization Details LastModified Time levothyroxine 137 mcg tablet active Not Available Not Availab le Not Available venlafaxine 75 mg tablet active Not Available Not Available No t Available amoxicillin 875 mg tablet 12/07 completed Not Available Not Available Not Available meclizine 25 mg tablet 12/07 completed Not Available Not Available Not Available ergocalciferol (vitamin D2) 1,250 mcg (50,000 unit) capsule active Not Available Not Available Not Available olmesartan 20 mg tablet active Not Available Not Available Not Available bupropion HCl XL 300 mg 24 hr tablet, extended release active Not Available Not Available Not Available Narcan 4 mg/actuation nasal spray 12/07 completed Not Available Not Available Not Available Vitals Date Recorded Body height Provider Name an d Address Organization Details Last Updated DateTime 12/07/2016 162.56 cm Angela Scott [facility] 12/07/2016 13:09:01 Date Recorded Body mass index (BMI) Body weight Provider Name and Address Organization Details Last Updated DateTime 12/07/2016 36 kg/m2 75538.4 [facility] 13:14:20 Date Recorded Heart rate Provider Name an d Address Organization Details Last Updated DateTime 12/07/2016 102 /min [facility]/07/2016 13:19:25 Date Recorded Systolic blood pressure Diastolic blood pressure Provider Name and Address Organization Details Last Updated DateTime 12/07/2016 113 mm[Hg] 74 mm[Hg] [facility]/07/2016 13:19:34 Social History Question Answer Notes LastModified by Market Trackat ion Details LastModified Time Tobacco Smoking Status Current Every Day Smoker 1 pk pd Angela Scott [facility] 12/07/2016 13:15:52 What Is Your Level Of Alcohol Consumption? None Information not available 12/07/2016 Is Blood Transfusion Acceptable In An Emergency? Yes Information not available 12/07/2016 What Was The Date Of Your Most Recent Tobacco Screening? 12/07/2016 Information not available 09/27/2018 How Much Tobacco Do You Smoke? 1 PPD Information not available 12/07/2016 How Many Years Have You Smoked Tobacco? 30 Information not available 12/07/2016 Sex: Unknown Functional Status None recorded. Mental Status None recorded. Family History Nothing Reported Notes:none Medical History Condition Response Anxiety Disorder Y Blood Transfusions N HSV N Blood clots N Abnormal pap N Hyperlipidemia Y Thyroid Problems Y Kidney or Bladder Problems N Depression Y Asthma N Defects or Inherited Disease N Anemia N Hypertension Y Gynecological History Statement/Question Response If Post Menopausal, Age at Menopause 49 Current Control Method Menopause Age at Menarche 12 Date of Last Mammogram Date of Last Colonoscopy Date of last DEXA Obstetrics History GPAL:G 0 P 0 0 0 0 Past Encounters Encounter ID Performer Location Encounter Start Date Encounter Closed Date Diagnosis/Indication Diagnosis SNOMED-CT Code Diagnosis ICD10 Code Diagnosis Note [id number] [facility] [address] [place] [address] 07/04/2013 00:00:00 [id number] [facility] [address] [place] [address] 08/02/2013 00:00:00 [id number] AUDREY LAY MD [address] [place] [address] 12/07/2016 12:52:25 12/07/2016 13:54:50 Gynecologic examination 29189724 Z01.419 Health Concerns Section Related Observation LastModified by Organization Detai ls LastModified Time None Recorded Concern Status LastModified by Organization Details LastModified Time None Recorded Advance Directives Directive None Recorded Payers Encounter Date Sequence Insurance Name Policy Number Policy Hirsch Covered Member ID Hirsch Member ID Guarantor Name 12/07/2016 1 [place]ARE [place] Maddi Amalia [id number] A Maddi Amalia 12/07/2016 2 [place] [id number] Maddi Amalia [id number] Maddi Amalia Notes Date Note Type Note Provider Name and Address Organization Details Recorded Time 12/07/2016 text/html [facility] Annual GYNReported bypatient.Menstrual cycle:postmenopausa l Breast:No breast pain Current Contraception:Satis fied with current contraception Preventive measures:Encourage regular exercise; Encourage regular mammograms starting age 40 Here for annual exam--last seen 2013. Dr Baez? . In therapy for depression. AUDREY LAY MD [address] [place] [address], [address] Floor, [place], [address], [place] [facility] [place] 12/07/2016 13:36:16 OBGyn Episode No OBEpisode recorded.
--- OUTSIDE RECORDS SUMMARY | 2024-04-03 10:36 | XMS_ITS | Encounter Summary ---
Author Organization [place] [facility] Care Team Providers Care Manager Solution Name Role Phone Tito Velasco MD Primary Care Provider [phone] Encounter Details Date Type Department Care Team (Late st Contact Info) Description 08/01/2015 Abstract [facility] [place] [address] [place] [address] Provider, Historical . Social History Tobacco Use Types Packs/Day Years Used Date Smoking Tobacco: Never Assessed Comments Unknown Sex and Gender Information Value Date Recorded Sex Assigned at Not on file Legal Sex Female 5:02 PM EDT Gender Identity Not on file Sexual Orientation Not on file documented as of this encounter Plan of Treatment Not on file documented as of this encounter Visit Diagnoses Not on filedocumented in this encounter Care Teams Manager Solution Relationship Specialty Start Date End Date Tito Velasco MD PCP - General Internal Medicine 12/07/16 documented as of this encounter
--- OUTSIDE RECORDS SUMMARY | 2024-04-03 10:36 | XMS_ITS | Clinical Summary ---
Author Organization [facility] Address [address] [place] [address] Care Team Providers Care Vertica Architect Name Role Phone Tito Velasco MD Primary Care Provider [phone] Allergies No known active allergies Social History Tobacco Use Types Packs/Day Years Used Date Smoking Tobacco: Never Alcohol Use Standard Drinks/Week Comments No 0 (1 standard drink = 0.6 oz pur e alcohol) Sex and Gender Information Value Date Recorded Sex Assigned at Not on file Gender Identity Not on file Sexual Orientation Not on file Last Filed Vital Signs Vital Sign Reading Time Taken Comments Blood Pressure 131/93 01/27/2016 2:43 PM EST Pulse 80 01/27/2016 2:43 PM EST Temperature 36.4 ??C (97.5 ??F) 01/27/2016 2:43 PM ES T Respiratory Rate 18 01/27/2016 2:43 PM EST Oxygen Saturation 99% 01/27/2016 2:43 PM EST Inhaled Oxygen Concentration - - Weight - - Height - - Body Mass Index - - Plan of Treatment Health Maintenance Due Date Last Done Comments Hepatitis C Virus Screening 1959 HIV Screening 1972 DTaP/Tdap/Td Vaccines (1 - Tdap) 1978 Pap Smear (Ages 21-65) 1980 Mammogram 1999 Colonoscopy 2004 Pneumococcal Vaccines 50+ (1 of 1 - PCV) 2009 Zoster (Shingles) Vaccine (1 of 2) 2009 Influenza Vaccine 10/06/2023 COVID-19 Vaccine ( - 2023-2 5 season) 2023 DXA Bone Density (Females,Ag es 65 and older) 2024 RSV Vaccine 60 years and old er and Patients (1 - 1-dose 75+ series) 2034 Hepatitis B Vaccines Aged Out No long er eligible based on patient's age to complete this topic Pneumococcal Vaccine: Pediat corinna (0-5 Years) and At-Risk Patients (6 to 49 Years) Aged Out No longer eligible b ased on patient's age to complete this topic Care Teams Vertica Architect Relationship Specialty Start Date End Date Tito Velasco MD [address] [place] [id number] PCP - General Internal Medicine 01/27/16
--- OUTSIDE RECORDS SUMMARY | 2024-04-03 10:37 | XMS_ITS | Clinical Summary ---
Author Organization [address] Address [address] [place] [address] Care Team Providers Care Erp Project Manager Name Role Phone Tito Velasco MD Primary Care Provider [phone] Allergies No known active allergies Medications levothyroxine (SYNTHROID, LEVOTHROID) 137 MCG tablet 10/15/2016 Active venlafaxine (EFFEXOR) 75 MG Immediate Release tablet 75 mg.. 11/09/2016 Acti ve buPROPion (WELLBUTRIN XL) 300 MG 24 hr tablet 10/27/2016 Active olmesartan (BENICAR) 20 MG tablet 20 mg.. 11/13/2016 Active Family History Medical History Relation Name Comments Diabetes Other Heart disease Other Thyroid disease Other Relation Name Status Comments Other Social History Tobacco Use Types Packs/Day Years Used Date Smoking Tobacco: Every Day Cigarettes 1 20 Smokeless Tobacco: Never Alcohol Use Standard Drinks/Week Comments No 0 (1 standard drink = 0.6 oz pur e alcohol) Comments No Sex and Gender Information Value Date Recorded Sex Assigned at Not on file Legal Sex Female 5:02 PM EDT Gender Identity Not on file Sexual Orientation Not on file Last Filed Vital Signs Vital Sign Reading Time Taken Comments Blood Pressure 128/69 12/07/2016 9:04 PM EDT Pulse 92 12/07/2016 9:04 PM EDT Temperature 36.9 ??C (98.4 ??F) 12/07/2016 9:04 PM ED T Respiratory Rate 20 12/07/2016 9:04 PM EDT Oxygen Saturation 99% 12/07/2016 9:04 PM EDT Inhaled Oxygen Concentration - - Weight 95.3 kg (210 lb) 12/07/2016 9:04 PM EDT Height 162.6 cm (5' 4 ) 12/07/2016 9:04 PM EDT Body Mass Index 36.05 12/07/2016 9:04 PM EDT Plan of Treatment Health Maintenance Due Date Last Done Comments HIV screening 1972 Hepatitis C screening 1977 Tetanus adult (Td q 10,TDAP once) 1979 Breast cancer screening 1999 Lipid disorder screening 1999 Colon cancer screening, Colonoscopy 2004 Diabetes screening 2004 Shingles vaccine (Shingrix) (1 of 2 - Shingrix (RZV) 2 Dose Standard Series) 2009 Influenza vaccine 10/06/2023 11/11/2021, 12/08/2019 Covid-19 vaccine series ( - 2023- season) 2023 Osteoporosis screening (bone density) 2024 Pneumo Vaccine 65+ (1 of 1 - PCV) 2024 RSV Discussion (1 - 1-dose 75+ series) 2034 Cervical cancer screening Discontinued Meningococcal Vaccine Aged Out No gianluca marilynn eligible based on patient's age to complete this topic Insurance MEDICARE [facility] MEDICARE [facility] MEDICARE [facility] MEDICARE [facility] Care Teams Erp Project Manager Relationship Specialty Start Date End Date Tito Velasco MD PCP - General Internal Medicine 12/07/16
--- OUTSIDE RECORDS SUMMARY | 2024-04-03 10:37 | XMS_ITS | Clinical Summary ---
Author Organization [facility] Address [address] [place] [address] Care Team Providers Care Supervisor Vat House Name Role Phone Tito Velasco MD Primary Care Provider Unavailabl e Tito Velasco MD Unavailable Unavailable Medications Venlafaxine HCl ER (EFFEXOR-XR) 75 MG 24 hr capsule Take 1 capsule twice daily 90 0 10/07/2009 Active Olmesartan Medoxomil (BENICAR) 20 MG tablet Take 1 tablet daily 90 tablet 0 10/22/2009 Active Levothyroxine Sodium (SYNTHROID, LEVOTHROID) 137 MCG tablet TAKE 1 TABLET EVERY DAY 90 0 01/19/2010 Active Venlafaxine HCl (EFFEXOR) 75 MG tablet TAKE 1 TABLET BY MOUTH TWICE A DAY CALL OFFICE, NEED ROUTINE FOLLOW UP 28 0 11/09/2011 Active buPROPion HCl ER, XL, (WELLBUTRIN XL) 300 MG 24 hr tablet TAKE 1 TABLET BY MOUTH EVERY DAY 90 0 02/05/2021 Active Active Problems Problem Noted Date Diagnosed Date Encounter for immunization 12/04/2020 Recurrent moderate major depressive disorder wit h anxiety 06/04/2020 Overview (04/10/2023): Severity: Medium Smoking trying to quit 10/24/2019 Recurrent severe major depressive disorder with anxiety 09/11/2018 Overview (04/10/2023): Severity: Medium; Transitioned From: Major depressive disorder, recurrent, unspecified Uterine fibroid 02/02/2018 Encounter for annual routine gynecological exami [facility] 02/02/2018 Hearing loss 01/05/2018 Overview (04/10/2023): Impression - [id number]: refer to audiology Encounter for preventive health examination 09/04 Tinnitus 06/02/2016 Obesity 03/09/2016 Overview (04/10/2023): Impression - 10Poz6625: has lost 30 lbs intentially over the last year - doing well Hyperlipidemia 03/14/2013 Overview (04/10/2023): Impression - 06Aww9258: check labs Insomnia 02/14/2012 Overview (04/10/2023): Impression - 11Rvv3495: takes ambien prn Obstructive sleep apnea 08/12/2011 Overview (04/10/2023): Impression - 70Ymc5729: symptoms resolved after weight loss Vitamin D deficiency 08/12/2011 Encounter for preventive health examination 05/2009 Benign essential hypertension 10/07/2009 Overview (04/10/2023): Impression - 99Ibk4905: controlled - continue current meds Hypothyroidism 10/07/2009 Overview (04/10/2023): Impression - 82Wgp1446: clinically euthyroid Resolved Problems Problem Noted Date Diagnosed Date Resolved Date Influenza vaccine needed 01/05/201810/2017 Immunizations Name Administration Dates Next Due COVID-19, mRNA (Pfizer Pre F all 2022) Monovalent, 30 mcg/0.3 ml 06/20/2020,05/29/2020 Influenza (SEASONAL) - 02/05/2016,2012,02/14/2012, 011 Influenza,injectable,MDCK, P rsrv Fr,Quad 12/04/2020 Influenza,injectable,quad,Prsrv Fr 12/24/2019 Influenza,injectable,quad,pr eservati ve 04/23/2019,11/29/2014 Influenza,recombinant,quad,i njectabl e,Prsrv Fr 01/05/2018 Td (adult), adsorbed 12/28/1999 Tdap 04/23/2019,04/15/2009 Family History Medical History Relation Name Comments CAD/PVD - Early Brother Coronary Art cinda Disease : Brother Cancer (?Type) Brother Laryngeal Can cer : Brother Cancer - Lung Brother Lung Cancer : Brother Lipid/Cholesterol Abnormality Brother Pure Hypercholestero lemia : Brother Psych/Mental Health Brother Psychiat corinna Disorders : Brother CAD/PVD - Early Father Coronary Art cinda Disease : Father Diabetes Father Diabetes Mellit us : Father Lipid/Cholesterol Abnormality Father Pure Hypercholestero lemia : Father Heart Disorder Maternal grandfather Heart Disease : Maternal Grandfather Heart Disorder Maternal grandmother Heart Disease : Maternal Grandmother Hypertension Mother Hypertension : Mother Lipid/Cholesterol Abnormality Mother Pure Hypercholestero lemia : Mother Stroke Mother Stroke Syndrome : Mother Other Other Family Health S tatus Siblings 1 Living All In Good Health : Family History;twin livifng 3 others --lung/throat cancer, hepC, CAD Heart Disorder Paternal grandfather Heart Disease : Paternal Grandfather Cirrhosis/Hepatitis/Liver Disorder Sister Hepatitis : Sister Relation Name Status Comments Brother Father Maternal grandfather Maternal grandmother Mother Other Paternal grandfather Sister Social History Tobacco Use Types Packs/Day Years Used Date Smoking Tobacco: Never Assessed Comments:Smoking Status:Curr ently using tobacco Comments Unknown Sex and Gender Information Value Date Recorded Sex Assigned at Not on file Legal Sex Female 11:19 PM EDT Gender Identity Not on file Sexual Orientation Not on file Last Filed Vital Signs Vital Sign Reading Time Taken Comments Blood Pressure 122/70 12/04/2020 11:41 AM EDT Pulse 98 12/04/2020 11:41 AM EDT Temperature 36.2 ??C (97.2 ??F) 12/04/2020 11:41 AM E DT Respiratory Rate 18 06/04/2020 11:14 AM EDT Normal Oxygen Saturation 96% 12/04/2020 11:41 AM EDT Inhaled Oxygen Concentration - - Weight 79.4 kg (175 lb) 12/04/2020 11:41 AM EDT Height 160 cm (5' 3 ) 12/04/2020 11:41 AM EDT Body Mass Index 31 12/04/2020 11:41 AM EDT Plan of Treatment Health Maintenance Due Date Last Done Comments Mammogram/Breast Imaging 1999 Colon Cancer Screening 2004 Pneumococcal 50+ years (1 of 1 - PCV) 2009 Zoster (Shingrix) (1 of 2) 2009 COVID-19 Vaccine (3 - season) 2023 06/20/2020, 05/29/2020 Influenza (#1) 2023 12/04/2020, 12/05, 04/23/2019, Additional history exists Bone Density 2024 DTaP/Tdap/Td (3 - Td or Tdap) 04/23/2029 04/23/2019, 04/15/2009, 12/28/1999 RSV (1 - 1-dose 75+ series) 2034 Pap Smear Discontinued 02/03/2018, 02/02/2018 LDL Cholesterol Discontinued 04/27/2018, 09/04, 03/30/2016, Additional history exists Hepatitis C Screening Completed 04/23/2019 EKG Discontinued 06/04/2020, 05/07, 04/23/2019, Additional history exists Physical Discontinued 06/04/2020, 04/07, 01/05/2018, Additional history exists HPV Vaccine Aged Out No longer eligi ble based on patient's age to complete this topic Hep A Aged Out No longer eligi ble based on patient's age to complete this topic Hep B Aged Out No longer eligi ble based on patient's age to complete this topic Hib Aged Out No longer eligi ble based on patient's age to complete this topic Meningococcal ACWY Aged Out No longer eligible based on patient's age to complete this topic Zoster (Zostavax) Discontinued Procedures Procedure Name Priority Date/Time Associated Diagnosis Comments EKG 06/04/2020 11:00 AM EDT HEPATITIS C ANTIBODY W/ REFLEX TO RNA, QN, RT PCR Routine 04/23/2019 7:40 PM EST LIPID PANEL, PLASMA Routine 04/27/2018 8 :05 AM EST CYTOLOGY, THINPREP PAP Routine 02/03/2018 11:15 AM EST from Last 3 Months or Most Recently Relevant to Health Maintenance Results * EKG (06/04/2020 11:00 AM EDT) Narrative 06/04/2020 11:00 AM EDT Ordered by an unspecified provider. us Unknown Provider CARDIOVASCULAR-NO INBASKET RTG Final Result * HEPATITIS C ANTIBODY W/ REFLEX TO RNA, QN, RT PCR (04/23/2019 7:40 PM EST) Hepatitis C virus Ab NON-REACT LIBRA NON-REACT LIBRA [facility] CONVERSIONS Hepatitis C virus Ab 0.06 <1.00 [facility] CONVERSION[facility] Comment:Antibodies to HCV we re not detected. NOTE: This does not entirely exclude the possibility of exposure to HCV since antibody production may lag infection. If there is a high suspicion of HCV infection HCV RNA testing may be of diagnostic value. 04/23/2019 7:40 PM EST Narrative PH[facility] CONVERSIONS - 04/23/2019 9:28 PM EST No Collection Date or Time Noted on requisition, Received Date and Time utilized. Testing Performed at: [facility], [address] [place] [address], , Public Health Aides Teacher: Mary Jane Haider MD CL#[id number] us Tito Velasco MD LABORATORY Final Result [facility] CONVERSIONS * (ABNORMAL) LIPID PANEL, PLASMA (04/27/2018 8:05 AM EST) Cholesterol 192 0 - 199 mg/dL [facility] Triglyceride 54 0 - 150 mg/dL [facility] VLDL Cholesterol 11 5 - 40 mg/dL [facility] HDL Cholesterol 72 50 - 80 mg/dL [facility] LDL Cholesterol 109(H) 0 - 100 mg/dL [facility] Cholesterol Non-HDL 120 0 - 130 mg/dl [facility] CHOL/HDL Ratio 2.7 [facility] CONVERSIONS 04/27/2018 8:05 AM EST Narrative PH[facility] CONVERSIONS - 04/27/2018 6:51 PM EST FASTING: YES Testing Performed at: [facility], [address] [place] [id number], , Public Health Aides Teacher: Mary Jane Haider MD CL#[id number] Vy Vines APRN LABORATORY Final Re sult Performing Organization Address City/[facility]/ZIP Co de Phone Number PHCT CONVERSIONS * CYTOLOGY, THINPREP PAP (02/03/2018 11:15 AM EST) Clinical information None given [facility]VERSION[facility] LMP [id number] [facility]VERSION[facility] Date of previous PAP smear 0 [facility] CONVERSIONS Date of previous biopsy NONE GIVEN [facility] CONVERSIONS Specimen source (Cvx/Vag) Cervix PH[facility] CONVERSIONS Statement of Adequacy (Cvx/Vag) Satisfactory for evaluation. Endocervical/trans formation zone component absent. PH[facility] CONVERSIONS Streptococcus pyogenes Ag (Throat) Negative for intraepithelial lesion or malignancy. PH[facility] CONVERSIONS Cytology study comment (Cvx/Vag) Tip of collection device in vial PHCT CONVERSIONS Enterprise Records Analyst (Cvx/Vag) C,CT(ASCP) CT screening location: [address] [address] PH[facility] CONVERSIONS COMMENT SEE NOTE PHCT CONVERSIONS Comment: EXPLANATORY NOTE: The Pap is a screening test for cervical cancer. It is not a diagnostic test and is subject to false negative and false positive results. It is most reliable when a satisfactory sample, regularly obtained, is submitted with relevant clinical findings and history, and when the Pap result is evaluated along with historic and current clinical information. 02/03/2018 11:1 5 AM EST Narrative PHCT CONVERSIONS - 02/08/2018 6:09 PM EST [facility] Testing performed at: 1, [facility], [address] [place] [address], [address], [place], [address], Public Health Aides Teacher: Shorty Marroquin MD [facility] Collection Date/Time: [id number] [facility] Results Received Date/Time: [id number] [facility] Reported Date/Time: [id number] Vy Vines APRN PATHOLOGY-INTERFACED Fin al Result Performing Organization Address [facility]/ZIP Co de Phone Number PHCT CONVERSIONS from Last 3 Months or Most Recently Relevant to Health Maintenance Care Teams Supervisor Vat House Relationship Specialty Start Date End Date Tito Velasco MD PCP - General 10/11/22 Tito Velasco MD PCP - Backup PCP Internal Medicine 04/07/23
== END 2024-04-03 11:22 | disposition home or self-care (01) ==
LOC: HO.HWS 09:55
PROVIDERS: PCP Nurse Practitioner Family; Visit Provider Obstetrics & Gynecology
DX: D25.9 Leiomyoma of uterus, unspecified (principal); M87.9 Osteonecrosis, unspecified
CPT/HCPCS: 99213

== ENCOUNTER → 2024-04-03 09:55 | Outpatient (BNVA) | payer MEDICARE, SELFPAY | PROVIDERS: PCP Nurse Practitioner Family; Visit Provider Obstetrics & Gynecology | DX: D25.9 Leiomyoma of uterus, unspecified (principal); M87.9 Osteonecrosis, unspecified | CPT/HCPCS: 99212 ==

== ENCOUNTER 2024-04-20 15:21 | Outpatient (REF) | payer MEDICARE, SELFPAY ==
--- OUTSIDE RECORDS SUMMARY | 2024-04-20 15:24 | XMS_ITS | Clinical Summary ---
Author Organization [facility] Address [address] [place] [address] Care Team Providers Care Bar Porter Name Role Phone Tito Velasco MD Primary Care Provider Allergies No known active allergies Social History [...] age to complete this topic Care Teams Bar Porter Relationship Specialty Start Date End Date Tito Velasco MD [address] [place] [id number] PCP - General Internal Medicine 01/27/16
--- OUTSIDE RECORDS SUMMARY | 2024-04-20 15:24 | XMS_ITS | Data Portability ---
Author Organization [place] - [facility] Address [address] [place] [address] Assessment No assessment recorded. Plan of Treatment Reminders Order Date Submit Date Provider Last Modified By Organization Details Last Modified Time Details Appointments None recorded. Lab pap, IG + HPV 2016 formerly [facility], [address] [place], [address] 17:55:40 Referral None recorded. Procedures None recorded. Surgeries None recorded. Imaging MAMMO, screening, digital, bilateral, w/ CAD 2016 hbender Not available 09:12:46 US, transvagina l 2016 TSERING Not available 12:45:49 Medication Orders None recorded. Patient TargetsNo targets recorded. Patient Instructions Encounter Date Encounter Id Patient Instructions Last Modified By Organization Details Last Modified Time 12/07/2016 [id number] tips to help you stay healthy [email or web address] Not available 12/07/2016 14:05:26 ? N ormal rn baby exam. . Mammogram recommended yearly after 40 [...] FOR INTRA EPITH ELIAL LESMURPHY N OR CALLUM KUNZ . Elect cristofer peng Anastacia d [...] libra rate. [facility] [address] [place] [id number] CLIA [id number] CL-PO [id number]. Not Available [facility] [address] [place], [address] 12/09/2016 17:55:40 12/08/19 17 12/09/2016 pap, IG [...] types from this sourc e. Not Available [facility] [address] [place] [address], [address] 12/09/2016 17:55:40 12/15/19 17 12/14/2016 US, trans vagin al No observ ation record ed. [facility] [address], [address], 12/14/2016 16:58:17 Result Notes None recorded. Problems Name Problem SNOMED Code Status Onset Date Resolution Date Notes Provider Name and Address Organization Details Recorded Time Hypertensive disorder 12828081 Active 2013 Not Available [facility] 5 19:17:16 Hypothyroidis m 33928853 Active 2013 Not Available [facility] 5 19:17:16 Sleep apnea 43731790 Active 2013 Not Available [facility] 5 19:17:16 Major depressive disorder 158869226 Active 2013 Not Available [facility] 5 19:17:16 Problem Notes None recorded. Procedures Surgical History Date Name Laterality Status Provider Name and Address Organization Details Recorded Time Orthopedic Surgery completed Not Available [facility] 08/02/2014 14:10:45 Orthopedic Surgery completed Angela Scott [place] - [facility] 12/07/2016 13:16:29 Imaging Results Imaging Date Name Status LastModified by Organization Details LastModified Time 12/14/2016 US, transvaginal completed [facility] [address], [address], 12/14/2016 16:58:17 Procedure Notes None recorded. Medical Equipment None Reported. Allergies Allergen ID Allergen Name Allergen Category Reaction Reaction Severity Criticality Documentation Date Start Date Code Code System Note Provider Name and Address Organization Details Recorded Time 823053 No known allergy (situatio n) Not available Not available Not available Not available 08/06/20142013 12736 6003 SNOMED Not Available [facility] 5 18:58:53 No known drug [...] Not Available Vitals Date Recorded Body height Body mass index (BMI) Body weight Heart rate Systolic blood pressure Diastolic blood pressure Provider Name and Address Organization Details Last Updated DateTime 7 162.56 cm 36 kg/m2 23866.4 g 102 /min 113 mm[Hg] 74 mm[Hg] Angela Remlauren [facility] 13:19:34 Social History Question Answer Notes LastModified by Envi[employer] ion Details LastModified Time Tobacco Smoking Status Current Every Day Smoker 1 pk pd Angela Rempt [facility] 12/07/2016 13:15:52 What Is Your Level Of [...] Nothing Reported Notes:none Medical History Condition Response Depression Y Anxiety Disorder Y HSV N Kidney or Bladder Problems N Asthma N Blood clots N Defects or Inherited Disease N Abnormal pap N Thyroid Problems Y Anemia N Blood Transfusions N Hyperlipidemia Y Hypertension Y Gynecological History Statement/Question Response If Post Menopausal, Age at Menopause 49 Current Control Method Menopause Age at Menarche 12 Date of Last Mammogram Date of Last Colonoscopy Date of last DEXA Obstetrics History GPAL:G 0 P 0 0 0 0 Past Encounters Encounter ID Performer Location Encounter Start Date Encounter Closed Date Diagnosis/Indication Diagnosis SNOMED-CT Code Diagnosis ICD10 Code Diagnosis Note [id number] [facility] [address] [place] [address] 07/04/2013 00:00:00 [id number] [facility] [address] [place] [address] 08/02/2013 00:00:00 [id number] AUDREY LAY MD SHO1 [address] SPE[address] YAÑEZ,DAMON [address] [place] [address] 12/07/2016 12:52:25 12/07/2016 13:54:50 Gynecologic examination 95084328 Z01.419 Health Concerns Section Related Observation LastModified by Organization Detai ls LastModified Time None Recorded Concern Status LastModified by Organization Details LastModified Time None Recorded Advance Directives Directive None Recorded Payers Encounter Date Sequence Insurance Name Policy Number Policy Hirsch Covered Member ID Hirsch Member ID Guarantor Name 12/07/2016 1 [place]ICARE [place]: CHERISE Maddi Amalia [id number] A Maddi Amalia 12/07/2016 2 [place]) [id number] Maddi Amalia [id number] Maddi Amalia Notes Date Note Type Note Provider Name and Address Organization Details Recorded Time 12/07/2016 text/html C Annual GYNReported bypatient.Menstrual cycle:postmenopausa l Breast:No breast pain Current Contraception:Satis fied with current contraception Preventive measures:Encourage regular exercise; Encourage regular mammograms starting age 40 Here for annual exam--last seen 2013. Dr Baez? . In therapy for depression. AUDREY LAY MD [address] [place] [address], [address] Floor, [place], [address], [place] [facility] 12/07/2016 13:36:16 OBGyn Episode No OBEpisode recorded.
--- OUTSIDE RECORDS SUMMARY | 2024-04-20 15:24 | XMS_ITS | Encounter Summary ---
Author Organization [place] [facility] Care Team Providers Care Starch Dumper Name Role Phone Tito Velasco MD Primary Care Provider [phone] Encounter Details Date Type Department Care Team (Late st Contact Info) Description 08/01/2015 Abstract [facility] [place] [address] [place] [address] Provider, Historical . Social History Tobacco Use [...] on filedocumented in this encounter Care Teams Starch Dumper Relationship Specialty Start Date End Date Tito Velasco MD PCP - General Internal Medicine 12/07/16 documented as of this encounter
--- OUTSIDE RECORDS SUMMARY | 2024-04-20 15:24 | XMS_ITS | Clinical Summary ---
Author Organization [address] Address [address] [place] [address] Care Team Providers Care Sales Representative Supervisor Name Role Phone Tito Velasco MD Primary Care Provider [phone] Allergies No known active allergies Medications levothyroxine [...] vaccine 10/06/2023 11/11/2021, 12/08/2019 Covid-19 vaccine series (1 - 2023- season) 2023 Osteoporosis screening (bone density) 2024 Pneumococcal Vaccine (50+ years) (1 of 1 - PCV) 2024 RSV Discussion (1 - 1-dose 75+ series) 2034 Cervical cancer screening Discontinued Meningococcal Vaccine Aged Out No gianluca marilynn eligible based on patient's age to complete this topic Insurance MEDICARE [facility] MED[facility]ARE [facility] MED[facility]ARE [facility] MEDICARE [facility] Care Teams Sales Representative Supervisor Relationship Specialty Start Date End Date Tito Velasco MD PCP - General Internal Medicine 12/07/16
--- OUTSIDE RECORDS SUMMARY | 2024-04-20 15:25 | XMS_ITS | Clinical Summary ---
Author Organization [facility] Address [address] [place] [address] Care Team Providers Care Baggage Agent Supervisor Name Role Phone Tito Velasco MD [...] Encounter for annual routine gynecological exami [facility] 02/02/2018 Hearing loss 01/05/2018 Overview (04/10/2023): Impression - 19Fbm1571: refer to audiology Encounter for preventive health examination 09/04 Tinnitus 06/02/2016 Obesity 03/09/2016 Overview (04/10/2023): Impression - 71Yox7826: has lost 30 lbs intentially over the last year - doing well Hyperlipidemia 03/14/2013 Overview (04/10/2023): Impression - 25Wfn8691: check labs Insomnia 02/14/2012 Overview (04/10/2023): Impression - 83Dqw5487: takes ambien prn Obstructive sleep apnea 08/12/2011 Overview (04/10/2023): Impression - 51Dom5692: symptoms resolved after weight loss Vitamin D deficiency 08/12/2011 Encounter for preventive health examination 05/2009 Benign essential hypertension 10/07/2009 Overview (04/10/2023): Impression - 65Fgh4063: controlled - continue current meds Hypothyroidism 10/07/2009 Overview (04/10/2023): Impression - 12Zyr7931: clinically euthyroid Resolved Problems Problem Noted Date [...] Date and Time utilized. Testing Performed at: [facility], [address] [place] [address], , Railway Station Manager: Mary Jane Haider MD CL#[id number] us Tito Velasco MD LABORATORY Final Result [...] PM EST FASTING: YES Testing Performed at: [facility], [address] [place] [address], , Railway Station Manager: Mary Jane Haider MD CL#[id number] Vy Vines APRN LABORATORY Final Re sult Performing Organization Address City/[facility]/ZIP Co de Phone Number PHCT CONVERSIONS * [...] of collection device in vial PHCT CONVERSIONS Animal Feeder (Cvx/Vag) C,CT(ASCP) CT screening location: [address] [address] PHCT CONVERSIONS COMMENT SEE NOTE PHCT CONVERSIONS [...] PM EST [facility] Testing performed at: 1, [facility], [address] [place] [address], [address], [place], [address], Railway Station Manager: Shorty Marroquin MD [facility] Collection Date/Time: [id number] [facility] Results Received Date/Time: [id number] [facility] Reported Date/Time: [id number] Vy Vines APRN PATHOLOGY-INTERFACED Fin al Result Performing Organization Address [facility]/ZIP Co de Phone Number PHCT CONVERSIONS from Last 3 Months or Most Recently Relevant to Health Maintenance Care Teams Baggage Agent Supervisor Relationship Specialty Start Date End Date Tito Velasco MD PCP - General 10/11/22 Tito Velasco MD PCP - Backup PCP Internal Medicine 04/07/23
[2024-04-20] MEDS: iohexoL 350 MG/ML 100 ML INFUS..BTL IV (17:21)
[2024-04-21 12:17] LABS: Creatinine POC 0.9 mg/dL (0.5-1.4); GFR POC > 60
== END 2024-04-20 15:22 | disposition home or self-care (01) ==
LOC: HO.CT 15:21
PROVIDERS: PCP Nurse Practitioner Family; Visit Provider Obstetrics & Gynecology
DX: D25.9 Leiomyoma of uterus, unspecified (principal)
CPT/HCPCS: 74177; 82565; Q9967

== ENCOUNTER → 2024-04-20 15:23 | Outpatient (BNV) | payer MEDICARE, SELFPAY | PROVIDERS: PCP Nurse Practitioner Family; Visit Provider General Practice | DX: D25.9 Leiomyoma of uterus, unspecified (principal); R22.2 Localized swelling, mass and lump, trunk | CPT/HCPCS: 74177 ==

== ENCOUNTER 2024-04-25 08:12 | Outpatient (AMB) | payer MEDICARE, SELFPAY ==
[2024-04-25 08:16] VITALS: BP 130/70; PULSE 88; TEMP 36.6; O2SAT 96; BMI 35.4
--- NOTE | 2024-04-25 08:16 | A.OFFPC_ITS ---
Vital Signs 04/25/24 08:16 Height 5 ft 3 in Weight 200 lb BMI 35.4 BP 130/70 Blood Pressure Location Rt brachial Position Sitting Pulse 88 Pulse Source Pulse Oximeter Temp 97.9 F Temp Source Oral Pulse Oximetry (%) 96 Intake Visit Reasons: 4 months f/up Allergies No Known Allergies Allergy (Verified 04/25/24 08:19) Medication List - Last Reconciled 04/25/24 by HEATHER Emerson- bupropion HCl SR 150 mg PO BID 90 days cholecalciferol (vitamin D3) 50 mcg PO DAILY 90 days levothyroxine 137 mcg PO DAILY olmesartan 5 mg PO DAILY walker Folding Front wheeled walker DURATION-99DAYS Tobacco use date assessed: 04/25/24 Fall risk assessment: No Falls in past year Last assessed Fall Risk: 04/25/24 Dental Screening Dental Screen Date: 04/25/24 Did you have a dental visit in the last 12 months?: Yes Did you have a dental problem in the last 6 months where you did not have access to dental care?: No Was dental information given to patient?: Patient has dentist HPI 4 months f/up HPI Details Chief Complaint Severe right hip pain and mobility issues due to osteonecrosis and osteoarthritis. 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 She has been consulting with an psychiatric clinical nurse specialist for this condition. The osteonecrosis and osteoarthritis are significantly affecting her gait and overall mobility, as evidenced by the noted abnormal gait. The severity of her hip condition warrants the necessity for a handicap placard, which is being addressed during this visit. Additionally, the patient has a documented history of vitamin D deficiency, for which she is presently undergoing supplementation therapy. Vitamin D levels will be reevaluated soon to ensure treatment efficacy. The patient is also receiving care from a customer account specialist for excessively large uterine fibroids, which have been identified in her medical history. dyslipidemia: pt does not like statins, due to muscle aches. I will start her on ezetimibe Social History - No specific social determinants of hea lth were discussed in the conversation. Health Maintenance - Currently undergoing vitamin D supplem entation. - Referral to customer account specialist for managemen t of uterine fibroids. Review of Systems - Musculoskeletal: Reports abnormal gait due to right hip osteonecrosis and osteoarthritis. - Endocrine: Vitamin D deficiency being managed with supplementation. Physical Exam General: Cooperative, healthy appearing, comfortable, no acute distress and well developed Orientation: Patient oriented x3 Limitations: No limitations Head: Normal to inspection Ears: Hearing grossly normal bilaterally Nose: Normal external nose present Face and sinus: Normal facial exam Eyes: Appearance normal, both eyes and all related structures Neck: Normal visual inspection and Yes full ROM Respiratory: Normal respiratory effort and able to speak in complete sentences. Clear to auscultation bilaterally Cardiovascular: Regular rate and rhythm. S1 S2 once clear GI: Normal to inspection. Soft to palpation and nontender Skin: No rashes or lesions noted Neuro: Patient oriented x3 Extremities: Abnormal gait noted due to right hip, obese Results -see XR results Plan - Complete and provide the necessary pap erwork for the handicap placard requested by the patient. - Continue vitamin D supplementation and schedule a follow-up to reassess the vitamin D levels in the near future. - Patient is advised to continue consult ations with her psychiatric clinical nurse specialist for her right hip osteonecrosis and osteoarthritis. - Advise the patient to maintain follow- up with her OBGYN for the management of excessively large uterine fibroids. Discussion Notes I discussed with the patient the necessity of completing the paperwork for the handicap placard due to her significant mobility issues caused by osteonecrosis and osteoarthritis of the right hip. I confirmed that her current vitamin D supplementation plan is appropriate and we will reassess her levels in an u pcoming appointment. We reviewed the importance of ongoing care with her psychiatric clinical nurse specialist for her hip condition and emphasized the need for continued gynecological monitoring of her uterine fibroids. The patient was made aware of the potential risks associated with her conditions and the ongoing management strategies that are in place. Patient Instructions - Follow up with your orthopedic special ist as planned. - Continue taking vitamin D supplements as prescribed. - Monitor vitamin D levels with a follow -up test in the near future. - Maintain regular appointments with you r OBGYN for fibroid management. - Contact our office if your symptoms wo rsen or you have any new concerns. [facility] Medical History Osteopenia Right rotator cuff tear PTSD (post-traumatic stress disorder) Borderline high cholesterol Hypertension Hypothyroidism Surgical History H/O rotator cuff surgery H/O left knee surgery Family History Other Mental health disorder Social History Household Members: None Housing: Apartment Patient Tobacco Use Status: Current everyday Tobacco user Tobacco use type: Cigarette Cigarettes Per Day: 10 e-Cigarette/Vaping Use: Never Used Substance Use Type: Marijuana service: No Current occupational status: retired Cognitive needs: No Hearing needs: No Vision needs: Yes Questionnaire PHQ-9 Over the last 2 weeks, how often have you been bothered by any of the following problems? 1. Little interest or pleasure in doing things: more than half the days 2. Feeling down, depressed, or hopeless: more than half the days 3. Trouble falling or staying asleep, or sleeping too much: more than half the days 4. Feeling tired or having little energy: more than half the days 5. Poor appetite or overeating: more than half the days 6. Feeling bad about yourself - or that you are a failure or have let yourself or your family down: more than half the days 7. Trouble concentrating on things, such as reading the newspaper or watching television: several days 8. Moving or speaking so slowly that other people could have noticed. Or the opposite - being so fidgety or restless that you have been moving around a lot more than usual: not at all 9. Thoughts that you would be better off or of hurting yourself in some w ay: several days Total score: 14 Depression Screening Interpretation: Positive (denies any si or hi, pt being seen by our provider today (mora)) Depression Screening Follow-up: Existing condition and In treatment Depression Screening Done: Yes 10881 - PHQ-9 Billing: Yes Source: Developed by Drs. Ibrahima Fountain, Tahmina Lieberman, Giovanni Seals and colleagues, with an educational ash from [employer]. Thrive Questionnaire Date Thrive assessed: 04/25/24 I am a: Patient What is your living situation today?: I have a steady place to live Within the past 12 months, did the food you bought not last and you didn't have the money to get more?: Never true Within the past 12 months, did you worry whether your food would run out before you got money to buy more?: Never true Do you have trouble paying for medicines?: No Do you have trouble getting transportation to medical appointments?: No Do you have trouble paying your heating and electricity bill?: No Do you have trouble taking care of your child, family member or friend?: No Do you have trouble with day-to-day activities such as bathing, preparing meals, shopping, managing finances, etc.?: I choose not to answer this question Are you currently unemployed and looking for a job?: No Are you interested in more education?: No Please select the resources that you would like help with: None Currently or been in a relationship where the following occur: No concerns reported THRIVE Score: 0 AUDIT C Alcohol Use Questionnaire (AUDIT-C) 1. How often do you have a drink containing alcohol?: Never 3. How often do you have six or more drinks on one occasion?: Never Total Score: 0 Score Reviewed/Action Taken: Yes JOSETTE-7 AMB Questionnaire JOSETTE-7 Date JOSETTE - 7 assessed: 04/25/24 Feeling nervous, anxious, or on edge: 2 = More than half the days Not being able to stop or control worryin = Several days Worrying too much about different things: 1 = Several days Trouble relaxin = Several days Being so restless that it is hard to sit still: 0 = Not at all Becoming easily annoyed or irritable: 1 = Several days Feeling afraid as if something awful might happen: 1 = Several days Total JOSETTE-7 score (0-4 normal; 5-9 mild; 10-14 moderate; 15-21 severe): 7 Source: Developed by Drs. Ibrahima Fountain, Tahmina Lieberman, Giovanni Seals and colleagues, with an educational ash from [employer]. JOSETTE-7 Assessment Billing JOSETTE-7 Assessment Tool: JOSETTE-7 Assessment 87689 Physical exam (Primary Care) Vital Signs: Last Vital Signs Temp 97.9 F 04/25/24 08:16 Pulse 88 04/25/24 08:16 BP 130/70 04/25/24 08:16 Pulse Ox 96 04/25/24 08:16 BMI result Body Mass Index 35.4 Tobacco/Smoking Status: Tobacco use Status Tobacco use date assessed 04/25/24 04/25/24 08:22 Patient Tobacco Use Status Current everyday Tobacco 04/25/24 08:17 Tobacco use type Cigarette 04/25/24 08:17 e-Cigarette/Vaping Use Never Used 04/25/24 08:17 PHQ-9: PHQ-9 Score PHQ-9: Total score 14 04/25/24 08:28 Depression Screening Interpretation: Positive (denies any si or hi, pt being seen by our provider today (mora)) Depression Screening Follow-up: Existing condition and In treatment Thrive Assessment: Date of Thrive Assessment Date Thrive assessed 04/25/24 04/25/24 08:22 Currently or been in a relationship where the following occur: No concerns reported Coding Level of Care Code Est Pt Level 3 (90591) Diagnoses Dyslipidemia E78.5 Vitamin D deficiency E55.9 Additional Codes JOSETTE-7 Assessment Billing - JOSETTE-7 Assessment Tool: JOSETTE-7 Assessment 71016 ([id number]) PHQ-9 - 10580 - PHQ-9 Billing: Yes ([id number]) Assessment & Plan Assessment & Plan (1) Dyslipidemia: Code(s): E78.5 - Hyperlipidemia, unspecified Category: Medical (2) Vitamin D deficiency: Code(s): E55.9 - Vitamin D deficiency, unspecified Category: Medical Plan . Orders: Orders Lipid Panel Today E55.9 - Vitamin D deficiency, unspecified, E78.5 - Hyperlipidemia, unspecified Complete Blood Count Auto Diff Today E55.9 - Vitamin D deficiency, unspecified, E78.5 - Hyperlipidemia, unspecified Vitamin D 25-OH Total Today E55.9 - Vitamin D deficiency, unspecified, E78.5 - Hyperlipidemia, unspecified Comprehensive [place]. Panel Fast Today E55.9 - Vitamin D deficiency, unspecified, E78.5 - Hyperlipidemia, unspecified Medications: New ezetimibe 10 mg PO DAILY 90 tabs 0RF
--- OUTSIDE RECORDS SUMMARY | 2024-04-25 08:16 | XMS_ITS | Data Portability ---
Author Organization [place] - [facility] Address [address] [place] [address] Assessment No assessment recorded. Plan of Treatment Reminders Order Date Submit Date Provider Last Modified By Organization Details Last Modified Time Details Appointments None recorded. Lab pap, IG + HPV 2016 [facility], [address] [place], [address] 17:55:40 Referral None recorded. Procedures None recorded. Surgeries None recorded. Imaging MAMMO, screening, digital, bilateral, w/ CAD 2016 hbender Not available 09:12:46 US, transvagina l 2016 [facility] Not available 12:45:49 Medication Orders None recorded. Patient TargetsNo targets recorded. Patient Instructions Encounter Date Encounter Id Patient Instructions Last Modified By Organization Details Last Modified Time 12/07/2016 [id number] tips to help you stay healthy [email or web address] Not available 12/07/2016 14:05:26 ? N ormal interactive producer exam. . Mammogram recommended yearly after 40 [...] by the ThinP rep Imagi ng onur Draek other [place]. The Pap test is a scree yamile test with an inher ent false negat libra rate. [facility] , [address] [place] [address] CLIA [id number] CL-PO [id number] 7. Not Available [facility] [address] [place], [address] 12/09/2016 17:55:40 12/08/19 17 12/09/2016 pap, IG [...] types from this sourc e. Not Available [facility] [address] [place] [address], [address] 12/09/2016 17:55:40 12/15/19 17 12/14/2016 US, trans vagin al No observ ation record ed. [facility] [address], [address], 12/14/2016 16:58:17 Result Notes None recorded. Problems Name Problem SNOMED Code Status Onset Date Resolution Date Notes Provider Name and Address Organization Details Recorded Time Hypertensive disorder 30064394 Active 2013 Not Available [facility] 5 19:17:16 Hypothyroidis m 48294723 Active 2013 Not Available [facility] 5 19:17:16 Sleep apnea 46513979 Active 2013 Not Available [facility] 5 19:17:16 Major depressive disorder 548874200 Active 2013 Not Available [facility] 5 19:17:16 Problem Notes None recorded. Procedures Surgical History Date Name Laterality Status Provider Name and Address Organization Details Recorded Time Orthopedic Surgery completed Not Available [facility] 08/02/2014 14:10:45 Orthopedic Surgery completed Angela Scott [place] - [facility] 12/07/2016 13:16:29 Imaging Results Imaging Date Name Status LastModified by Organization Details LastModified Time 12/14/2016 US, transvaginal completed [facility] [address], [address], 12/14/2016 16:58:17 Procedure Notes None recorded. Medical Equipment None Reported. Allergies Allergen ID Allergen Name Allergen Category Reaction Reaction Severity Criticality Documentation Date Start Date Code Code System Note Provider Name and Address Organization Details Recorded Time 445188 No known allergy (situatio n) Not available Not available Not available Not available 08/06/20142013 604[address] 6003 SNOMED Not Available [facility] 5 18:58:53 No known [...] Updated DateTime 7 162.56 cm 36 kg/m2 05201.4 g 102 /min 113 mm[Hg] 74 mm[Hg] Angela Remlaurne [facility] 13:19:34 Social History Question Answer Notes LastModified by Fetch Itat ion Details LastModified Time Tobacco Smoking Status Current Every Day Smoker 1 pk pd Angela Rempt [facility], [facility] 12/07/2016 13:15:52 What Is Your Level Of [...] Disorder Y Blood Transfusions N HSV N Abnormal pap N Blood clots N Hyperlipidemia Y Kidney or Bladder Problems N Thyroid Problems Y Depression Y Asthma N Defects or Inherited [...] SNOMED-CT Code Diagnosis ICD10 Code Diagnosis Note [id number] [facility] [address] [place] [address] 07/04/2013 00:00:00 [id number] [facility] [address] [place] [address] 08/02/2013 00:00:00 [id number] AUDREY LAY MD SHO1 4 SPEEDY YAÑEZ,DAMON [address] [place] [address] 12/07/2016 12:52:25 12/07/2016 13:54:50 Gynecologic examination 59786263 Z01.419 Health Concerns Section Related Observation LastModified by Organization Detai ls LastModified Time None Recorded Concern Status LastModified by Organization Details LastModified Time None Recorded Advance Directives Directive None Recorded Payers Encounter Date Sequence Insurance Name Policy Number Policy Hirsch Covered Member ID Hirsch Member ID Guarantor Name 12/07/2016 1 MEDICARE B-[place]: CHERISE Maddi Amalia [id number] A Maddi Amalia 12/07/2016 2 [place] BC[place] ([place]) [id number] Maddi Amalia [id number] Maddi Amalia Notes Date Note Type Note Provider Name and Address Organization Details Recorded Time 12/07/2016 text/html C Annual GYNReported bypatient.Menstrual cycle:postmenopausa l Breast:No breast pain Current Contraception:Satis fied with current contraception Preventive measures:Encourage regular exercise; Encourage regular mammograms starting age 40 Here for annual exam--last seen 2013. Dr Baez? . In therapy for depression. AUDREY LAY MD [address] [place] [address], [address] Floor, [place], [address], [place] [facility] 12/07/2016 13:36:16 OBGyn Episode No OBEpisode recorded.
--- OUTSIDE RECORDS SUMMARY | 2024-04-25 08:16 | XMS_ITS | Clinical Summary ---
Author Organization [facility] Address [address] [place] [address] Care Team Providers Care It Technical Architect Name Role Phone Tito Velasco MD Primary Care Provider [phone] Allergies No known active allergies Social History [...] age to complete this topic Care Teams It Technical Architect Relationship Specialty Start Date End Date Tito Velasco MD PCP - General Internal Medicine 01/27/16
--- OUTSIDE RECORDS SUMMARY | 2024-04-25 08:16 | XMS_ITS | Encounter Summary ---
Author Organization [place] + [facility] Care Team Providers Care Secretary Of Police Name Role Phone Tito Velasco MD Primary Care Provider [phone] Encounter Details Date Type Department Care Team (Late st Contact Info) Description 08/01/2015 Abstract [facility] [place] [address], [address] [place] [address] Provider, Historical . Social History Tobacco Use [...] on filedocumented in this encounter Care Teams Secretary Of Police Relationship Specialty Start Date End Date Tito Velasco MD PCP - General Internal Medicine 12/07/16 documented as of this encounter
--- OUTSIDE RECORDS SUMMARY | 2024-04-25 08:17 | XMS_ITS | Clinical Summary ---
Author Organization [facility] Address [address] [place] [address] Care Team Providers Care School Cook Name Role Phone Tito Velasco MD Primary [...] 02/02/2018 Encounter for annual routine [facility]necological exami [facility] 02/02/2018 Hearing loss 01/05/2018 Overview (04/10/2023): Impression - 27Idm9495: refer to audiology Encounter for preventive health examination 09/04 Tinnitus 06/02/2016 Obesity 03/09/2016 Overview (04/10/2023): Impression - 13Hxk0512: has lost 30 lbs intentially over the last year - doing well Hyperlipidemia 03/14/2013 Overview (04/10/2023): Impression - 33Fpy9002: check labs Insomnia 02/14/2012 Overview (04/10/2023): Impression - 31Yir7985: takes ambien prn Obstructive sleep apnea 08/12/2011 Overview (04/10/2023): Impression - 52Jox2980: symptoms resolved after weight loss Vitamin D deficiency 08/12/2011 Encounter for preventive health examination 05/2009 Benign essential hypertension 10/07/2009 Overview (04/10/2023): Impression - 48Wcj6077: controlled - continue current meds Hypothyroidism 10/07/2009 Overview (04/10/2023): Impression - 03Ldn3392: clinically euthyroid Resolved Problems Problem Noted Date [...] Date and Time utilized. Testing Performed at: [facility], [address] [place] [address], , Merchant Patroller: Mary Jane Haider MD CL#[id number] us Tito Velasco MD LABORATORY Final Result [...] PM EST FASTING: YES Testing Performed at: [facility], [address] [place] [address], , Merchant Patroller: Mary Jane Haider MD CL#[id number] Vy Vines APRN LABORATORY Final Re sult Performing Organization Address City/[facility]/ZIP Co de Phone Number PHCT CONVERSIONS * [...] of collection device in vial PHCT CONVERSIONS [employer] Terrazzo Finisher (Cvx/Vag) C,CT(ASCP) CT screening location: [address] [address] PHCT CONVERSIONS COMMENT SEE NOTE PHCT CONVERSIONS [...] PM EST [facility] Testing performed at: 1, [facility], [address] [place] [address], [address], [place], [address], Merchant Patroller: Shorty Marroquin MD [facility] Collection Date/Time: [id number] [facility] Results Received Date/Time: [id number] [facility] Reported Date/Time: [id number] Vy Vines APRN PATHOLOGY-INTERFACED Fin al Result Performing Organization Address [facility]/ZIP Co de Phone Number PHCT CONVERSIONS from Last 3 Months or Most Recently Relevant to Health Maintenance Care Teams School Cook Relationship Specialty Start Date End Date Tito Velasco MD PCP - General 10/11/22 Tito Velasco MD PCP - Backup PCP Internal Medicine 04/07/23
== END 2024-04-25 09:06 | disposition home or self-care (01) ==
PROVIDERS: PCP Nurse Practitioner Family; Visit Provider Nurse Practitioner Family
DX: E78.5 Hyperlipidemia, unspecified (principal); E55.9 Vitamin D deficiency, unspecified

== ENCOUNTER → 2024-04-25 08:12 | Outpatient (BNVA) | payer MEDICARE, SELFPAY | PROVIDERS: PCP Nurse Practitioner Family; Visit Provider Nurse Practitioner Family | DX: E78.5 Hyperlipidemia, unspecified (principal); E55.9 Vitamin D deficiency, unspecified | CPT/HCPCS: 96127; 99212 ==

== ENCOUNTER 2024-06-04 09:38 | Outpatient (AMB) | payer MEDICARE, SELFPAY ==
--- NOTE | 2024-06-04 09:43 | A.OFFVIS_ITS ---
Intake Visit Reasons: CT follow up Equipment Or Machinery Cleaner: Equipment Or Machinery Cleaner Present (Kavitha) Accompanied by: Self / Same As Patient Allergies No Known Allergies Allergy (Verified 06/04/24 09:43) HPI Comments Details: Presenting for follow-up CT scan which showed the following: No consolidation or effusion. Gallstones in the dependent gallbladder. No focal hepatic lesions. Pancreas, spleen and adrenal glands are within normal limits. Kidneys enhance symmetrically and are non hydronephrotic. Probable cyst arises from the upper pole of the right kidney measuring 2.7 cm. No bowel obstruction, pneumoperitoneum, or pneumatosis. The appendix is not visualized. Large heterogeneously enhancing solid round mass in the central pelvis measures 9 x 9.2 x 8.1 cm, presumably large fibroid or leiomyoma by provided history. The bones are intact. IMPRESSION: Circumscribed solid enhancing mass in the central pelvis measuring 9 x 9.2 x 8.1 cm, presumably large leiomyoma. Last pelvic ultrasound was in 02/27 The patient does not have any pelvic pain or pressure symptoms or vaginal bleeding PFSH Medical History Osteopenia Right rotator cuff tear PTSD (post-traumatic stress disorder) Borderline high cholesterol Hypertension Hypothyroidism Surgical History H/O rotator cuff surgery H/O left knee surgery Family History Other Mental health disorder Social History Household Members: None Housing: Apartment Patient Tobacco Use Status: Current everyday Tobacco user Tobacco use type: Cigarette Cigarettes Per Day: 10 e-Cigarette/Vaping Use: Never Used Substance Use Type: Marijuana service: No Current occupational status: retired Cognitive needs: No Hearing needs: No Vision needs: Yes Review of Systems Const All systems reviewed & are unremarkable except as noted in HPI and below Reports as per HPI and Reports no additional complaints GI Reports no additional complaints Reports no additional complaints Assessment & Plan Assessment & Plan (1) Uterine myoma: Code(s): D25.9 - Leiomyoma of uterus, unspecified Category: Medical Plan: Discussed with the patient the results the CT scan with no evidence of ureter obstruction, since ultrasound was 3 months ago will repeat pelvic ultrasound compare the size of myoma in treat accordingly. Instructions given the patient to schedule an ultrasound follow-up appointment. All questions answered, the patient verbalized understanding. Orders: Orders US pelvic and transvaginal Today D25.9 - Leiomyoma of uterus, unspecified Coding Level of Care Code Est Pt Level 3 (59701) Diagnoses Uterine myoma D25.9
== END 2024-06-04 10:03 | disposition home or self-care (01) ==
LOC: HO.HWS 09:38
PROVIDERS: PCP Nurse Practitioner Family; Visit Provider Obstetrics & Gynecology
DX: D25.9 Leiomyoma of uterus, unspecified (principal)
CPT/HCPCS: 99213

== ENCOUNTER → 2024-06-04 09:38 | Outpatient (BNVA) | payer MEDICARE, SELFPAY | PROVIDERS: PCP Nurse Practitioner Family; Visit Provider Obstetrics & Gynecology | DX: D25.9 Leiomyoma of uterus, unspecified (principal) | CPT/HCPCS: 99212 ==

== ENCOUNTER 2024-07-26 11:50 | Outpatient (AMB) | payer MEDICARE, SELFPAY ==
--- NOTE | 2024-07-26 11:54 | MHC.OFFVIS ---
Vital Signs 07/26/24 12:06 Height 5 ft 3 in Weight 200 lb BMI 35.4 BP 126/72 Blood Pressure Location Rt brachial Position Sitting Pulse 96 Pulse Source Pulse Oximeter Pulse Oximetry (%) 96 Oxygen Delivery Method Room Air Intake Visit Reasons: Colonoscopy Screening Intake Note: NEW PATIENT for initial colo screening? CC; C/O concerns from recent MRI per Dr. Sanchez. Pt reports having possible, partially obstructed hepatobilliary duct? Pt denies any sx at this time. No pertinent FMHx or prior colo. Drafting Technician Required: No Accompanied by: Self / Same As Patient Allergies atorvastatin Adverse Reaction (Severe, Verified 07/26/24 12:01) Palpitations ezetimibe Adverse Reaction (Severe, Verified 07/26/24 12:01) Palpitations HPI HPI Colonoscopy Screening: Details: 64-year-old female here for preprocedural meeting to discuss a screening colonoscopy. She is referred by Grayson Stone. PMX Hypertension High cholesterol Chronic kidney disease Hypothyroid Osteopenia Osteonecrosis of the hip Cannabis abuse Compulsive gambling Depression/PTSD * SURGICAL HISTORY Right rotator cuff repair Left arthroscopic knee surgery [place] teeth removal * ALLERGIES: NKDA * Swarm LABS: needs labs CT abdomen and pelvis performed by OBGYN for fibroids 04/25/2024 Findings: No consolidation or effusion. Gallstones in the dependent gallbladder. No focal hepatic lesions. Pancreas, spleen and adrenal glands are within normal limits. Kidneys enhance symmetrically and are non hydronephrotic. Probable cyst arises from the upper pole of the right kidney measuring 2.7 cm. No bowel obstruction, pneumoperitoneum, or pneumatosis. The appendix is not visualized. Large heterogeneously enhancing solid round mass in the central pelvis measures 9 x 9.2 x 8.1 cm, presumably large fibroid or leiomyoma by provided history. The bones are intact. IMPRESSION: Circumscribed solid enhancing mass in the central pelvis measuring 9 x 9.2 x 8.1 cm, presumably large leiomyoma. TODAY'S VISIT This is her 1st colonoscopy. She will be having a hip replacement in October so this could interfere with the timing/scheduling of her colonoscopy. Apparently she has a question about gallstones discovered on a CAT scan performed by her OBGYN. However, she denies any upper GI problems and only gets diarrhea from SSRI's and she takes metamucil. There are no prior problems with anesthesia or sedation. She denies any cardiac or respiratory problems. No ID problems. There is no known FHX crc or polyps. [facility] Medical History (Updated 07/26/24 @ 12:08 by MYRA Gan) Screening for cervical cancer Screening for colon cancer Well woman exam Osteopenia Right rotator cuff tear PTSD (post-traumatic stress disorder) Borderline high cholesterol Hypertension Hypothyroidism Surgical History H/O rotator cuff surgery H/O left knee surgery Family History Other Mental health disorder Social History Household Members: None Housing: Apartment Patient Tobacco Use Status: Current everyday Tobacco user Tobacco use type: Cigarette Cigarettes Per Day: 10 e-Cigarette/Vaping Use: Never Used Substance Use Type: Marijuana service: No Current occupational status: retired Cognitive needs: No Hearing needs: No Vision needs: Yes Review of Systems Const Denies fatigue, Denies fever(s), Denies night sweats, Denies poor appetite and Denies weight loss Eyes Details: glasses Reports requires corrective lenses ENT Reports Normal hearing present, Denies dental pain, Denies dysphagia, Denies hearing loss, Denies mouth pain, Denies odynophagia, Denies throat swelling, Denies tongue swelling and Reports other (Dentition adequate) Card Reports no additional complaints Resp Reports no additional complaints GI Details: Denies abdominal pain, Denies melena, Denies bloating, Denies hematochezia, Denies constipation, Denies GI cramping, Denies dysphagia, Denies excessive flatus, Denies early satiety, Denies heartburn, Denies diarrhea, Denies nausea, Denies odynophagia, Denies vomiting and Denies hematemesis Skin/Breast Denies pruritus, Denies lesions, Denies rash and Denies jaundice Neuro Reports Normal hearing present and Denies Abnormal speech present Endo Denies fatigue Aller/Immun Denies throat swelling and Denies tongue swelling Physical Exam Vital Signs: Last Vital Signs Pulse 96 07/26/24 12:06 BP 126/72 07/26/24 12:06 Pulse Ox 96 07/26/24 12:06 Oxygen Delivery Method Room Air 07/26/24 12:06 BMI result Body Mass Index 35.4 Const General: cooperative, no acute distress, well developed and well groomed Nutritional Appearance: well nourished and obese Orientation/consciousness: oriented to person, oriented to place and oriented to time Limitations: No language barrier HEENT Head: Yes normocephalic and Yes atraumatic Eyes General: appearance normal, both eyes and all related structures Pupils: Equal, round and reactive pupils present Neck Neck: Yes normal visual inspection and Yes no lymphadenopathy Thyroid: Thyroid normal Resp Effort & Inspection: normal respiratory effort and able to speak in complete sentences Auscultation: clear to auscultation bilaterally Cardio Rate: regular rate Rhythm: regular rhythm Heart sounds: Normal, physiologic split S2 sound present Peripheral pulses: radial pulses present and posterior tibial pulses present GI Inspection: No distended, Yes Abdominal panniculus present and Yes obesity Palpation (GI): Soft to palpation, nontender, no guarding, not rigid and No hepatosplenomegaly present Percussion: Yes normal to percussion Auscultation: normal bowel sounds Rectal Exam - Female: deferred Skin General skin exam: no rashes or lesions noted, turgor normal, skin not dry, no jaundice, No spider nevi and no striae Rashes: no rashes Nails: normal Neuro General: oriented to person, oriented to place and oriented to time Cranial nerves: Yes Equal, round and reactive pupils present and Yes Normal hearing present Speech: No Abnormal speech present Extrem General: Yes normal to inspection, No clubbing, No cyanosis and No edema Psych Appearance: grossly normal and well kempt Mental Status: mental status grossly normal Speech and movement: Normal speech and movement present Affect: normal affect Attitude: cooperative Thought process: Normal thought process present and not confabulating Thought content: Normal thought content present Insight: Good insight present (Psych) Judgement: Good judgement present (Psych) Assessment & Plan Assessment & Plan (1) Pre-op evaluation: Code(s): Z01.818 - Encounter for other preprocedural examination Category: Medical Plan This is her 1st colonoscopy. She will be having a hip replacement in [place] so this could interfere with the timing/scheduling of her colonoscopy. Apparently she has a question about gallstones discovered on a CAT scan performed by her OBGYN. However, she denies any upper GI problems and only gets diarrhea from SSRI's and she takes metamucil. There are no prior problems with anesthesia or sedation. She denies any cardiac or respiratory problems. No ID problems. There is no known FHX crc or polyps. Orders: Orders Comprehensive Met. Panel Today Z01.818 - Encounter for other preprocedural examination Complete Blood Count Auto Diff Today Z01.818 - Encounter for other preprocedural examination Colonoscopy - GI Use Only Today Z01.818 - Encounter for other preprocedural examination Medications: New sodium,potassium,mag sulfates 17.5-3.13-1.6 gram (Suprep Bowel Prep Kit) 480 mL orally; FOR COLONOSCOPY PREP 354 mL 0RF Coding Level of Care Code New Pt Level 3 (62042) Diagnoses Pre-op evaluation Z01.818
[2024-07-26 12:06] VITALS: BP 126/72; PULSE 96; O2SAT 96; BMI 35.4
--- OUTSIDE RECORDS SUMMARY | 2024-07-26 12:21 | XMS_ITS | Clinical Summary ---
Author Organization [facility] Address [address] [place] [address] Care Team Providers Care Home Worker Name Role Phone Tito Velasco MD Primary Care Provider [phone] Allergies No known active allergies Social History Tobacco Use Types Packs/Day Years Used Date Smoking Tobacco: Never Alcohol Use Standard Drinks/Week Comments No 0 (1 standard drink = 0.6 oz pur e alcohol) Comments Unknown Sex and Gender Information Value Date Recorded Sex Assigned at Not on file Legal Sex Female 4:04 PM EDT Gender Identity Not on file [...] Zoster (Shingles) Vaccine (1 of 2) 2009 COVID-19 Vaccine (2023-2 5 season) 2023 DXA Bone Density (Females,Ag es 65 and older) 2024 Influenza Vaccine 10/05/2024 RSV Vaccine 60 years and old er and Patients (1 - 1-dose 75+ series) 2034 Hepatitis B Vaccines Aged Out No long er eligible based on patient's age to complete this topic [facility] Care Teams Home Worker Relationship Specialty Start Date End Date Tito Velasco MD PCP - General Internal Medicine 01/27/16
--- OUTSIDE RECORDS SUMMARY | 2024-07-26 12:21 | XMS_ITS | Encounter Summary ---
Author Organization [facility] Care Team Providers Care Automatic Buffer Name Role Phone Tito Velasco MD Primary Care Provider [phone] Encounter Details Date Type Department Care Team (Late st Contact Info) Description 08/01/2015 Abstract [facility] [place] [address] [place] [address] Provider, Historical . Social History Tobacco Use [...] on filedocumented in this encounter Care Teams Automatic Buffer Relationship Specialty Start Date End Date Tito Velasco MD PCP - General Internal Medicine 12/07/16 documented as of this encounter
--- OUTSIDE RECORDS SUMMARY | 2024-07-26 12:21 | XMS_ITS | Clinical Summary ---
Author Organization [facility] Address [address] [place] [address] Care Team Providers Care Head Animal Keeper Name Role Phone Tito Velasco MD Primary [...] 02/02/2018 Encounter for [facility] 02/02/2018 Hearing loss 01/05/2018 Overview (04/10/2023): Impression - 63Yry4463: refer to audiology Encounter for preventive health examination 09/04 Tinnitus 06/02/2016 Obesity 03/09/2016 Overview (04/10/2023): Impression - 84Frz2521: has lost 30 lbs intentially over the last year - doing well Hyperlipidemia 03/14/2013 Overview (04/10/2023): Impression - 06Njp4731: check labs Insomnia 02/14/2012 Overview (04/10/2023): Impression - 74Rvd8026: takes ambien prn Obstructive sleep apnea 08/12/2011 Overview (04/10/2023): Impression - 09Bjt9315: symptoms resolved after weight loss Vitamin D deficiency 08/12/2011 Encounter for preventive health examination 05/2009 Benign essential hypertension 10/07/2009 Overview (04/10/2023): Impression - 43Ett4421: controlled - continue current meds Hypothyroidism 10/07/2009 Overview (04/10/2023): Impression - 10Hlq4753: clinically euthyroid Resolved Problems Problem Noted Date [...] Date and Time utilized. Testing Performed at: [facility], [address] [place] [address], , Veterinary Medicine Teacher: Mary Jane Haider MD CL#[id number] us Tito Velasco MD LABORATORY Final Result [...] PM EST FASTING: YES Testing Performed at: [facility], [address] [place] [id number], , Veterinary Medicine Teacher: Mary Jane Haider MD CL#[id number] Vy Vines APRN LABORATORY Final Re sult Performing Organization Address City/[facility]/ZIP Co de Phone Number PHCT CONVERSIONS * [...] of collection device in vial PHCT CONVERSIONS Supervisor Twisting Department (Cvx/Vag) C,CT(ASCP) CT screening location: [address] [address] PHCT CONVERSIONS COMMENT SEE NOTE PHCT CONVERSIONS [...] PM EST [facility] Testing performed at: 1, [facility], [address] [place] [address], [address], [place], [address], Veterinary Medicine Teacher: Shorty Marroquin MD [facility] Collection Date/Time: [id number] [facility] Results Received Date/Time: [id number] [facility] Reported Date/Time: [id number] Vy Vines APRN PATHOLOGY-INTERFACED Fin al Result Performing Organization Address [facility]/ZIP Co de Phone Number PHCT CONVERSIONS from Last 3 Months or Most Recently Relevant to Health Maintenance Care Teams Head Animal Keeper Relationship Specialty Start Date End Date Tito Velasco MD PCP - General 10/11/22 Tito Velasco MD PCP - Backup PCP Internal Medicine 04/07/23
--- OUTSIDE RECORDS SUMMARY | 2024-07-26 12:21 | XMS_ITS | Data Portability ---
Author Organization [place] - [facility] Address [address] [place] [address] Assessment No assessment recorded. Plan of Treatment Reminders Order Date Submit Date Provider Last Modified By Organization Details Last Modified Time Details Appointments None recorded. Lab pap, IG + HPV 2016 [facility], [address] [place], [address] 17:55:40 Referral None recorded. Procedures None recorded. Surgeries None recorded. Imaging MAMMO, screening, digital, bilateral, w/ CAD 2016 hbender Not available 09:12:46 US, transvagina l 2016 TSERING Not available 12:45:49 Medication Orders None recorded. Patient TargetsNo targets recorded. Patient Instructions Encounter Date Encounter Id Patient Instructions Last Modified By Organization Details Last Modified Time 12/07/2016 [id number] tips to help you stay healthy [email or web address] Not available 12/07/2016 14:05:26 ? N ormal tunnel kiln firer exam. . Mammogram recommended yearly after 40 [...] libra rate. [facility] , [address] [place] [id number] CLIA [id number] CL-PO [id number] 7. Not Available [facility] [address] [place], [address] 12/09/2016 17:55:40 12/08/19 17 12/09/2016 pap, IG [...] types from this sourc e. Not Available [facility] [address] [place] [address], [address] 12/09/2016 17:55:40 12/15/19 17 12/14/2016 US, trans vagin al No observ ation record ed. [facility] [address], [address], 12/14/2016 16:58:17 Result Notes None recorded. Problems Name Problem SNOMED Code Status Onset Date Resolution Date Notes Provider Name and Address Organization Details Recorded Time Hypertensive disorder 45548843 Active 2013 Not Available [facility] 5 19:17:16 Hypothyroidis m 50087415 Active 2013 Not Available [facility] 5 19:17:16 Sleep apnea 85674593 Active 2013 Not Available [facility] 5 19:17:16 Major depressive disorder 037507039 Active 2013 Not Available [facility] 5 19:17:16 Problem Notes None recorded. Procedures Surgical History Date Name Laterality Status Provider Name and Address Organization Details Recorded Time Orthopedic Surgery completed Not Available [facility] 08/02/2014 14:10:45 Orthopedic Surgery completed Angela Scott [facility] - [facility] 12/07/2016 13:16:29 Imaging Results Imaging Date Name Status LastModified by Organization Details LastModified Time 12/14/2016 US, transvaginal completed [facility]note 3] Primary Care [address], [address], 12/14/2016 16:58:17 Procedure Notes None recorded. Medical Equipment None Reported. Allergies Allergen ID Allergen Name Allergen Category Reaction Reaction Severity Criticality Documentation Date Start Date Code Code System Note Provider Name and Address Organization Details Recorded Time 575074 No known allergy (situatio n) Not available Not available Not available Not available 08/06/20142013 05398 6003 SNOMED Not Available [facility] 5 18:58:53 No known drug allergies Medications [...] Updated DateTime 7 162.56 cm 36 kg/m2 54056.4 g 102 /min 113 mm[Hg] 74 mm[Hg] Angela Scott [facility] 13:19:34 Social History Question Answer Notes LastModified by Organizat ion Details LastModified Time Tobacco Smoking Status Current Every Day Smoker 1 pk pd [facility] 12/07/2016 13:15:52 Is Blood Transfusion Acceptable In An Emergency? Yes Information not available 12/07/2016 What Was The Date Of Your Most Recent Tobacco Screening? 12/07/2016 Information not available 09/27/2018 How Much Tobacco Do You Smoke? 1 PPD Information not available 12/07/2016 How Many Years Have You Smoked Tobacco? 30 Information not available 12/07/2016 Sex: Unknown Functional Status Question Answer Note LastModified by Organization D etails LastModified Time What is your level of alcohol consumption? None Information not available 12/07/2016 Mental Status None recorded. Family History Nothing Reported Notes:none Medical History Condition Response Blood clots N Depression Y Defects or Inherited Disease N Anxiety Disorder Y HSV N Abnormal pap N Thyroid Problems Y Kidney or Bladder Problems N Anemia N Blood Transfusions N Hyperlipidemia Y Asthma N Hypertension Y Gynecological History Statement/Question Response [...] SNOMED-CT Code Diagnosis ICD10 Code Diagnosis Note [id number] [facility] [address] [place] [address] 07/04/2013 00:00:00 [id number] [facility] [address] [place] [address] 08/02/2013 00:00:00 [id number] AUDREY LAY MD SHO1 4 SPEEDY YAÑEZ,DAMON [address] [place] [address] 12/07/2016 12:52:25 12/07/2016 13:54:50 Gynecologic examination [id number] Z01.419 Health Concerns Section Related Observation LastModified by Organization Detai ls LastModified Time None Recorded Concern Status LastModified by Organization Details LastModified Time None Recorded Advance Directives Directive None Recorded Payers Insurance Date Sequence Insurance Name Policy Number Policy Hirsch Covered Member ID Hirsch Member ID Guarantor Name 12/13/2016 2 [place] [id number] Maddi Amalia [id number] Maddi Amalia 12/07/2016 1 [place] Mdadi Amalia [id number] A Maddi Amalia Notes Date Note Type Note Provider Name and Address Organization Details Recorded Time 12/07/2016 text/html [facility] Annual GYNReported bypatient.Menstrual cycle:postmenopausa l Breast:No breast pain Current Contraception:Satis fied with current contraception Preventive measures:Encourage regular exercise; Encourage regular mammograms starting age 40 Here for annual exam--last seen 2013. Dr Baez? . In therapy for depression. AUDREY LAY MD [address] [place] [address], [address] Floor, [place], [address], [place] [facility] 12/07/2016 13:36:16 OBGyn Episode No OBEpisode recorded.
--- OUTSIDE RECORDS SUMMARY | 2024-07-26 12:21 | XMS_ITS | Clinical Summary ---
Author Organization [address] Address [address] [place] [address] Care Team Providers Care Computer Sciences Professor Name Role Phone Tito Velasco MD Primary Care Provider [phone] Allergies No known active allergies Medications levothyroxine [...] cancer screening, Colonoscopy 2004 Diabetes screening 2004 Pneumococcal Vaccine (50+ years) (1 of 1 - PCV) 2009 Shingles vaccine (Shingrix) (1 of 2 - Shingrix (RZV) 2 Dose Standard Series) 2009 Covid-19 vaccine series (1 - 2023- season) 2023 Osteoporosis screening (bone density) 2024 Influenza vaccine 11/05/2024 11/11/2021, 12/08/2019 RSV Immunization (1 - 1-dose 75+ series) 2034 Cervical cancer screening Discontinued Meningococcal Vaccine Aged Out No gianluca marilynn eligible based on patient's age to complete this topic Insurance MEDICARE [facility] MEDICARE [facility] MEDICARE [facility] MEDICARE [facility] Care Teams Computer Sciences Professor Relationship Specialty Start Date End Date Tito Velasco MD PCP - General Internal Medicine 12/07/16
== END 2024-07-26 12:39 | disposition home or self-care (01) ==
LOC: HO.HGI 11:51
PROVIDERS: PCP Nurse Practitioner Family; Visit Provider Nurse Practitioner
DX: Z12.11 Encounter for screening for malignant neoplasm of colon (principal); Z01.818 Encounter for other preprocedural examination
CPT/HCPCS: 99024

== ENCOUNTER → 2024-07-26 11:50 | Outpatient (BNVA) | payer MEDICARE, SELFPAY | PROVIDERS: PCP Nurse Practitioner Family; Visit Provider Nurse Practitioner | DX: Z01.818 Encounter for other preprocedural examination (principal) | CPT/HCPCS: 99212 ==

== ENCOUNTER 2024-08-14 09:38 | Outpatient (REF) | payer MEDICARE, SELFPAY ==
--- OUTSIDE RECORDS SUMMARY | 2024-08-14 10:39 | XMS_ITS | Clinical Summary ---
Author Organization [facility] Address [address] [place] [address] Care Team Providers Care Employee Benefits Attorney Name Role Phone Tito Velasco MD Primary [...] topic [facility] Care Teams Employee Benefits Attorney Relationship Specialty Start Date End Date Tito Velasco MD PCP - General Internal Medicine 01/27/16
[2024-08-14 13:29] LABS: MANUAL DIFF FLAG NO
[2024-08-14 13:32] LABS: Basophils Absolute Auto 0.1 X10*3/uL (0.0-0.2); Basophils Percent Auto 0.7 % (0-2); Eosinophils Absolute Auto 0.5 X10*3/uL (0.0-0.4); Eosinophils Percent Auto 5.7 % (0-4); Hematocrit 42.8 % (37.0-47.0); Hemoglobin 14.1 g/dl (12.0-16.0); Imm Gran Abs Auto 0.03 X10*3/uL (0.00-0.03); Imm Gran Pct Auto 0.4 % (0.0-0.4); Lymphocytes Absolute Auto 2.5 X10*3/uL (1.2-4.9); Lymphocytes Percent Auto 31.4 % (20-40); Mean Corpuscular HGB Conc 32.9 g/dl (31.0-35.0); Mean Corpuscular Hemoglobin 28.7 pg (27.0-33.0); Mean Corpuscular Volume 87.2 fL (80.0-98.0); Mean Platelet Volume 9.9 fL (9.4-12.3); Monocytes Absolute Auto 0.7 X10*3/uL (0.1-1.2); Monocytes Percent Auto 8.1 % (2-11); Neutrophils Absolute Auto 4.3 x10*3/uL (2.0-8.3); Neutrophils Percent Auto 53.7 % (45-73); Platelet Count 288 X10*3/uL (160-400); Red Blood Count 4.91 X10*6/uL (4.20-5.50); Red Cell Distribution Width 13.9 % (11.0-16.0); White Blood Count 8.1 X10*3/uL (4.8-10.8)
[2024-08-14 13:55] LABS: Alanine Aminotransferase 16 U/L (0-31); Albumin Level 4.2 g/dL (3.5-5.0); Alkaline Phosphatase 66 U/L (39-117); Anion Gap 13 (12-20); Aspartate Amino Transferase 25 U/L (5-31); Bilirubin Total 0.8 mg/dL (0.0-1.0); Blood Urea Nitrogen 22 mg/dL (9-16); Calcium 9.8 mg/dL (8.4-10.2); Carbon Dioxide 21 mmol/L (22-29); Chloride 110 mmol/L (96-108); Cholesterol 247 mg/dL (<200); Estimated Glomerular Filt Rate 51; Glucose Fasting 81 mg/dL (60-99); HDL Cholesterol 60 mg/dL (>40); LDL Cholesterol Calculated 167 mg/dL (<100); Potassium 4.6 mmol/L (3.3-5.1); Sodium 139 mmol/L (135-145); Total Protein 6.9 g/dL (6.5-8.0); Triglycerides 100 mg/dL (<150)
[2024-08-14 14:17] LABS: Vitamin D 25-OH Total 64.9 ng/mL (>30)
== END 2024-08-14 09:39 | disposition home or self-care (01) ==
LOC: HO.HMGCLDS 09:38
PROVIDERS: PCP Nurse Practitioner Family; Visit Provider Nurse Practitioner Family
DX: E78.5 Hyperlipidemia, unspecified (principal); E55.9 Vitamin D deficiency, unspecified
CPT/HCPCS: 36415; 80053; 80061; 82306; 85025

== ENCOUNTER 2024-08-21 15:12 | Outpatient (AMB) | payer MEDICARE, SELFPAY ==
--- NOTE | 2024-08-21 15:17 | MHC.PC.OV ---
Vital Signs 08/21/24 15:21 Height 5 ft 3 in Weight 198 lb BMI 35.1 BP 120/72 Blood Pressure Location Lt brachial Position Sitting Pulse 94 Pulse Source Pulse Oximeter Pulse Oximetry (%) 96 Intake Visit Reasons: 4 months f/up Corrections Counselor Required: No Allergies atorvastatin Adverse Reaction (Severe, Verified 08/21/24 16:35) Palpitations ezetimibe Adverse Reaction (Severe, Verified 08/21/24 16:35) Palpitations Medication List - Last Reconciled 08/21/24 by KIMBERLY Emerson [3 in 1 commode DURATION : LIFETIME] bupropion HCl XL 300 mg PO QAM cholecalciferol (vitamin D3) 50 mcg PO DAILY 90 days [Folding Front Wheeled walker Duration: 99 days] levothyroxine 137 mcg PO DAILY olmesartan 5 mg PO DAILY [SHOWER CHAIR DURATION: LIFETIME] walker Rollator walker with seat and brakes Tobacco use date assessed: 04/25/24 Fall risk assessment: No Falls in past year Last assessed Fall Risk: 08/21/24 Dental Screening Dental Screen Date: 04/25/24 HPI 4 months f/up HPI Details Chief Complaint The patient presents for follow-up on dyslipidemia and preoperative evaluation for right total hip replacement. History of Present Illness The patient is a 64-year-old female presenting with a follow-up for dyslipidemia and preoperative evaluation for right total hip replacement. She has avascular necrosis of the right femoral head, with surgery planned for October, and has been using a walker for several months due to limited mobility. Her cholesterol levels are elevated, and she cannot tolerate statins or ezetimibe, with hopes that post-surgical mobility will aid in managing her dyslipidemia. She is a smoker and receives low-dose CT scans for lung screening ([facility]). Social History - Tobacco use: Smoker, undergoing low-dose CT scans for lung screening Health Maintenance - Lung cancer screening with low-dose CT scans due to smoking history Review of Systems denies any cp, increased SOB, fevers, chills, N/V, abd pain, GONZALEZ Physical Exam General: Cooperative, healthy appearing, comfortable, no acute distress and well developed, obese Orientation: Patient oriented x3 Limitations: No limitations Head: Normal to inspection Ears: Hearing grossly normal bilaterally Nose: Normal external nose present Face and sinus: Normal facial exam Eyes: Appearance normal, both eyes and all related structures Neck: Normal visual inspection and Yes full ROM Respiratory: Normal respiratory effort and able to speak in complete sentences. Clear to auscultation bilaterally Cardiovascular: Regular rate and rhythm. Normal S1 and S2 GI: Normal to inspection. Soft to palpation and nontender Skin: No rashes or lesions noted Neuro: Patient oriented x3 Extremities: Normal to inspection Results Plan The patient is scheduled for a right total hip replacement in October due to avascular necrosis of the right femoral head, with preoperative clearance provided based on recent labs. For dyslipidemia, the patient is unable to tolerate statins or ezetimibe, and increased mobility post-surgery is expected to aid in managing cholesterol levels. The patient is advised to continue smoking cessation efforts and undergoes regular low-dose CT scans for lung cancer screening. Discussion Notes I discussed with the patient the plan for her upcoming right total hip replacement due to avascular necrosis and provided preoperative clearance based on her recent lab results. We reviewed her dyslipidemia management, noting her intolerance to statins and ezetimibe, and emphasized the potential benefits of increased mobility post-surgery. I also advised her on the importance of smoking cessation and the continuation of low-dose CT scans for lung cancer screening. Patient Instructions - Prepare for right total hip replacement surgery in October. - Follow preoperative instructions and attend all scheduled appointments. - Engage in recommended exercises post-surgery to improve mobility. - Continue efforts to quit smoking and attend regular low-dose CT scans for lung screening. [facility] Medical History Screening for cervical cancer Screening for colon cancer Well woman exam Osteopenia Right rotator cuff tear PTSD (post-traumatic stress disorder) Borderline high cholesterol Hypertension Hypothyroidism Surgical History H/O rotator cuff surgery H/O left knee surgery Family History Other Mental health disorder Social History Household Members: None Housing: Apartment Patient Tobacco Use Status: Current everyday Tobacco user Tobacco use type: Cigarette Cigarettes Per Day: 10 e-Cigarette/Vaping Use: Never Used Substance Use Type: Marijuana service: No Current occupational status: retired Cognitive needs: No Hearing needs: No Vision needs: Yes Questionnaire Thrive Questionnaire Date Thrive assessed: 08/21/24 I am a: Patient What is your living situation today?: I have a steady place to live Within the past 12 months, did the food you bought not last and you didn't have the money to get more?: Never true Within the past 12 months, did you worry whether your food would run out before you got money to buy more?: Never true Do you have trouble paying for medicines?: No Do you have trouble getting transportation to medical appointments?: No Do you have trouble paying your heating and electricity bill?: No Do you have trouble taking care of your child, family member or friend?: No Do you have trouble with day-to-day activities such as bathing, preparing meals, shopping, managing finances, etc.?: I choose not to answer this question Are you currently unemployed and looking for a job?: No Are you interested in more education?: No Please select the resources that you would like help with: None Currently or been in a relationship where the following occur: No concerns reported THRIVE Score: 0 JOSETTE-7 AMB Questionnaire JOSETTE-7 Date JOSETTE - 7 assessed: 04/25/24 Source: Developed by Drs. Ibrahima Fountain, Tahmina Lieberman, Giovanni Seals and colleagues, with an educational ash from [employer]. Physical exam (Primary Care) Vital Signs: Last Vital Signs Pulse 94 08/21/24 15:21 BP 120/72 08/21/24 15:21 Pulse Ox 96 08/21/24 15:21 BMI result Body Mass Index 35.1 Tobacco/Smoking Status: Tobacco use Status Tobacco use date assessed 04/25/24 08/21/24 15:18 Patient Tobacco Use Status Current everyday Tobacco 08/21/24 15:18 Tobacco use type Cigarette 08/21/24 15:18 e-Cigarette/Vaping Use Never Used 08/21/24 15:18 Thrive Assessment: Date of Thrive Assessment Date Thrive assessed 08/21/24 08/21/24 15:22 Currently or been in a relationship where the following occur: No concerns reported Immunizations pneumoc 20-brayan conj-dip cr(PF) 0.5 mL IM syringe Performing Provider: Kuldip Glogowski, ANTHROPOLOGY AND ARCHEOLOGY INSTRUCTOR-BC Performing Location: [facility] Administered by: Garo Mora CMA on 08/21/24 16:35 Dose Route Admin Location Dispensed Lot Number Expiration Date [facility] Filenet Developer 0.5 mL IM Left Deltoid 0.5 mL [id number] 05/24/25 2873-0824-06 WYETH/PFIZER VIS Given Date VIS Provided VIS Publication Date 08/21/24 Single Vaccine 24 Eligibility Eligibility Date Funding Source Not [facility] Eligible 08/21/24 Private Coding Level of Care Code Est Pt Level 4 (53397) Diagnoses Osteonecrosis of hip M87.9 Dyslipidemia E78.5 Pre-op evaluation Z01.818 Assessment & Plan Assessment & Plan (1) Osteonecrosis of hip: Comment: Avascular necrosis of the right femoral head by MRI Code(s): M87.9 - Osteonecrosis, unspecified Category: Medical (2) Dyslipidemia: Code(s): E78.5 - Hyperlipidemia, unspecified Category: Medical (3) Pre-op evaluation: Code(s): Z01.818 - Encounter for other preprocedural examination Category: Medical Plan . Orders: Orders AMB EKG-In Office Today Z01.818 - Encounter for other preprocedural examination Pneumococcal 20 Immunization Today Z23 - Encounter for immunization Medications: Refilled cholecalciferol (vitamin D3) 50 mcg PO DAILY 90 days 90 caps 2RF
[2024-08-21 15:21] VITALS: BP 120/72; PULSE 94; O2SAT 96; BMI 35.1
--- OUTSIDE RECORDS SUMMARY | 2024-08-21 17:43 | XMS_ITS | Clinical Summary ---
Author Organization [facility] Address [address] [place] [address] Care Team Providers Care Wrapper Hand Name Role Phone Tito Velasco MD Primary [...] [facility] Care Teams Wrapper Hand Relationship Specialty Start Date End Date Tito Velasco MD PCP - General Internal Medicine 01/27/16
== END 2024-08-21 16:32 | disposition home or self-care (01) ==
LOC: HO.HMCC 15:13
PROVIDERS: PCP Nurse Practitioner Family; Visit Provider Nurse Practitioner Family
DX: M87.9 Osteonecrosis, unspecified (principal); E78.5 Hyperlipidemia, unspecified; Z01.818 Encounter for other preprocedural examination; Z23 Encounter for immunization

== ENCOUNTER → 2024-08-21 15:12 | Outpatient (BNVA) | payer MEDICARE, SELFPAY | PROVIDERS: PCP Nurse Practitioner Family; Visit Provider Nurse Practitioner Family | DX: Z01.818 Encounter for other preprocedural examination (principal); M87.851 Other osteonecrosis, right femur; E78.5 Hyperlipidemia, unspecified; F17.210 Nicotine dependence, cigarettes, uncomplicated; Z23 Encounter for immunization | CPT/HCPCS: 90471; 90677; 99212 ==

== ENCOUNTER → 2024-09-04 08:47 | Outpatient (REF) | payer MEDICARE, SELFPAY ==
--- NOTE | 2024-09-04 08:50 | CA_ITS ---
Transthoracic Echocardiogram Patient (Last, First, Middle): Maddi Holland, Gender: Female Date of : 1960 Age: 64 Procedure Date: 09/04/2024 Procedure Type: Transthoracic Echocardiogram Location: OP Height: 157.48 cm Weight: 89.81 kg BSA: 1.90 m2 Heart Rate: bpm BP: 130 / 68 mmHg Driller'S Offsider: GOLDIE Referring MD: Grayson Stone [facility]- Animal Warden: Billy Adams MD Symptoms: Z01.818 - Encounter for other preprocedural examination Study Quality: Adequate ECG Rhythm: Sinus Conclusions: - 1. Normal LV ejection fraction of 60 65% with impaired relaxation filling pattern 2. Cardiac valvular Dopplers within normal limits 3. Normal RV systolic pressure 4. No gross pericardial effusion Findings Left Ventricle Normal left ventricular size, thickness, and systolic function. The visually estimated ejection fraction is between 60-65%. Spectral Doppler is indicative of an impaired relaxation filling pattern. E/E prime ratio is between 8 and 15 consistent with indeterminate filling pressures. Right Ventricle Normal right ventricular cavity size and systolic function. Atria The left atrium is normal in size. There is no evidence of interatrial shunt. The right atrium is normal in size. Aortic Valve The aortic valve structure and function is likely normal. There is no aortic valve stenosis. There is no aortic valve regurgitation. Mitral Valve Likely normal mitral valve structure and function. There is trace mitral valve regurgitation. There is no mitral valve stenosis. Pulmonic Valve The pulmonic valve was not well visualized. Tricuspid Valve Likely normal tricuspid valve structure and function. There is trace tricuspid valve regurgitation. The right ventricular systolic pressure is normal. The right ventricular systolic pressure is 15 mmHg. Normal right atrial pressure. There is no evidence of pulmonary hypertension. Great Vessels All visible segments of the aorta are normal in size. The pulmonary artery was not well visualized. There is no dilatation of the ascending aorta measuring 2.90 cm. Venous The inferior vena cava is normal in size and collapses greater than 50% with inspiration. Pericardium/Pleural There is no evidence of pericardial effusion. Prior Study Comparison No prior study available for comparison. Measurements 2D Linear Measurements IVSd: 1.10 0.6-0.9/0.6-1.0 cm LVIDd: 3.92 3.9-5.3/4.2-5.9 cm LVIDd Index: 2.06 2.4-3.2/2.2-3.1 cm/m2 LVIDs: 2.65 2.0-3.6 cm LVPWd: 1.06 0.7-1.1 cm Ao Root: 2.70 2.1-3.5 cm LA Diam: 3.50 2.7-3.8/3.0-4.0 cm LAIDs Index: 1.84 1.5-2.3 cm/m2 LV Mass: 171.10 67-162/88-224 g LV Mass Index: 90.05 43-95/49-115 g/m2 LVOT Diam: 2.10 3.0+(-)1.3 cm 2D Systolic Function EF 4C: 63.70 >55% EF 2C: 59.70 >55% EF BiP: 62.10 >55% Mitral Valve MV Pk E: 0.48 MV PK A: 0.65 MV Decel Time: 294.00 E/A: 0.70 E'Lateral: 6.96 E'Medial: 9.14 E/E' Med: 5.30 E/E' Lat: 6.90 PHT: 86.00 MVA PHT: 2.56 Decel [place]: 1.63 Aortic Valve AoV Pk Jan: 1.29 AoV Mn Jan: 0.83 AoV VTI: 0.26 AoV Pk Grad: 7.00 Aov Mn Grad: 3.00 CAILIN Cont.VTI: 2.48 LVOT LVOT Pk Jan: 0.84 LVOT Mn Jan: 0.50 LVOT VTI: 0.19 LVOT Pk Grad: 3.00 LVOT Mn Grad: 1.00 LVOT Diam: 2.10 LVOT Area: 3.46 Diastolic Function MV Pk E: 0.48 MV Pk A: 0.65 E/A: 0.70 E'Medial: 9.14 E/E' Med: 5.30 E' Laterial: 6.96 E/E' Lat: 6.90 Tricuspid Valve TR Pk Jan: 1.75 TR Pk Grad: 12.00 RA Press: 3.00 RVSP: 15.00 Great Vessels Aorta Ao Root-2D: 2.70 2.0-3.7 cm Ao Asc: 2.90 2.1-3.4 cm Pulmonary Valve PV Pk Jan: 1.06 Peak PV Grad: 4.00 Updated in Other Vendor System with Status of Final Billy Adams MD electronically signed on 09/04/2024 1:45:08 PM with status of Final
--- OUTSIDE RECORDS SUMMARY | 2024-09-04 09:03 | XMS_ITS | Clinical Summary ---
Author Organization [facility] Address [address] [place] [address] Care Team Providers Care Editor Sound Name Role Phone Tito Velasco MD Primary [...] 02/02/2018 Encounter for annual routine gynecological exami [facility] 02/02/2018 Hearing loss 01/05/2018 Overview (04/10/2023): Impression - [id number]: refer to audiology Encounter for preventive health examination 09/04 Tinnitus 06/02/2016 Obesity 03/09/2016 Overview (04/10/2023): Impression - 52Phn9218: has lost 30 lbs intentially over the last year - doing well Hyperlipidemia 03/14/2013 Overview (04/10/2023): Impression - 23Sld0781: check labs Insomnia 02/14/2012 Overview (04/10/2023): Impression - 23Hkd7266: takes ambien prn Obstructive sleep apnea 08/12/2011 Overview (04/10/2023): Impression - 37Jex2854: symptoms resolved after weight loss Vitamin D deficiency 08/12/2011 Encounter for preventive health examination 05/2009 Benign essential hypertension 10/07/2009 Overview (04/10/2023): Impression - 49Typ0110: controlled - continue current meds Hypothyroidism 10/07/2009 Overview (04/10/2023): Impression - 20Pfd5770: clinically euthyroid Resolved Problems Problem Noted Date Diagnosed Date Resolved Date Influenza vaccine needed 01/05/201810/2017 Immunizations Immunization Administration Dates Next Due COVID-19, mRNA (Pfizer Pre F all 2022) Monovalent, 30 mcg/0.3 ml 06/20/2020,05/29/2020 Influenza (SEASONAL) - 02/05/2016,2012,02/14/2012,2010 Influenza,injectable,MDCK, P rsrv Fr,Quad 12/04/2020 Influenza,injectable,quad,Prsrv Fr 12/24/2019 Influenza,injectable,quad,pr eservativ e 04/23/2019,11/29/2014 Influenza,recombinant,quad,i njectable ,Prsrv Fr 01/05/2018 Td (adult), adsorbed 12/28/1999 Tdap [...] 98 12/04/2020 11:41 AM EDT Temperature 36.2 C (97.2 F) 12/04/2020 11:41 AM EDT Respiratory Rate 18 06/04/2020 11:14 AM EDT [...] Vaccine (3 - season) 2023 06/20/2020, 05/29/2020 Bone Density 2024 Influenza (#1) 2024 12/04/2020, 12/05, 04/23/2019, Additional history exists DTaP/Tdap/Td (3 - Td or Tdap) 04/23/2029 [...] Date and Time utilized. Testing Performed at: [facility], [address] [place] [address], , Cat Dog Or Other Pet Groomer: Mary Jane Haider MD CL#[id number] us Tito Velasco MD LABORATORY Final Result [...] PM EST FASTING: YES Testing Performed at: [facility], [address] [place] [address], , Cat Dog Or Other Pet Groomer: Mary Jane Haider MD CL#[id number] Vy Vines APRN LABORATORY Final Re sult Performing Organization Address City/[facility]/ZIP Co de Phone Number PHCT [...] of collection device in vial PHCT CONVERSIONS Assistant Professor Of Forestry (Cvx/Vag) [facility],CT(ASCP) CT screening location: [place] [address] PHCT CONVERSIONS COMMENT SEE NOTE PHCT CONVERSIONS [...] PM EST [facility] Testing performed at: 1, [facility], [address] [place] [address], [place], [address], Cat Dog Or Other Pet Groomer: Shorty Marroquin MD [facility] Collection Date/Time: [id number] [facility] Results Received Date/Time: [id number] [facility] Reported Date/Time: [id number] Vy Vines APRN PATHOLOGY-INTERFACED Fin al Result Performing Organization Address City/[facility]/ZIP Co de Phone Number PHCT CONVERSIONS from Last 3 Months or Most Recently Relevant to Health Maintenance Care Teams Editor Sound Relationship Specialty Start Date End Date Tito Velasco MD PCP - General 10/11/22 Tito Velasco MD PCP - Backup PCP Internal Medicine 04/07/23
--- OUTSIDE RECORDS SUMMARY | 2024-09-04 09:03 | XMS_ITS | Data Portability ---
Author Organization [place] [facility], [facility] Address [id number] [place] [address] Assessment No assessment recorded. Plan of Treatment Reminders Order Date Submit Date Provider Last Modified By Organization Details Last Modified Time Details Appointments None recorded. Lab pap, IG + HPV 2016 TSERING [facility], [address] [place], [address] 17:55:40 Referral None recorded. Procedures None recorded. Surgeries None recorded. Imaging MAMMO, screening, digital, bilateral, w/ CAD 2016 hbender Not available 09:12:46 US, transvagina l 2016 TSERING Not available 12:45:49 Medication Orders None recorded. Patient TargetsNo targets recorded. Patient Instructions Encounter Date Encounter Id Patient Instructions Last Modified By Organization Details Last Modified Time 12/07/2016 [id number] tips to help you stay healthy [email or web address] Not available 12/07/2016 14:05:26 Normal microstrategy architect exam. . Mammogram recommended yearly after 40 [...] TION: NEGAT LIBRA FOR INTRA EPITH ELIAL LESMURPYH N OR CALLUM KUNZ . Elect cristofer [...] libra rate. [facility] , [address] [place] [address] CLIA [id number] CL-PO [id number] 7. Not Available [facility] [address] [place], [address] 12/09/2016 17:55:40 12/08/19 17 12/09/2016 pap, IG [...] types from this sourc e. Not Available [facility] [address] [place] [address], [address] 12/09/2016 17:55:40 12/15/19 17 12/14/2016 US, trans vagin al No observ ation record ed. [facility] [address], [address], 12/14/2016 16:58:17 Result Notes None recorded. Problems Name Problem SNOMED Code Status Onset Date Resolution Date Notes Provider Name and Address Organization Details Recorded Time Hypertensive disorder 20055636 Active 2013 Not Available [facility] 5 19:17:16 Hypothyroidis m 83251770 Active 2013 Not Available [facility] 5 19:17:16 Sleep apnea 24710864 Active 2013 Not Available [facility] 5 19:17:16 Major depressive disorder 364174028 Active 2013 Not Available [facility] 5 19:17:16 Problem Notes None recorded. Procedures Surgical History Date Name Laterality Status Provider Name and Address Organization Details Recorded Time Orthopedic Surgery completed Not Available [facility] 08/02/2014 14:10:45 Orthopedic Surgery completed Angela Rempt [facility] 12/07/2016 13:16:29 Imaging Results None recorded. Procedure Notes None recorded. Medical Equipment None Reported. Allergies Allergen ID Allergen Name Allergen Category Reaction Reaction Severity Criticality Documentation Date Start Date Code Code System Note Provider Name and Address Organization Details Recorded Time 288277 No known allergy (situatio n) Not available Not available Not available Not available 08/06/20142013 12215 6003 SNOMED Not Available [facility] 5 18:58:53 No known [...] Updated DateTime 7 162.56 cm 36 kg/m2 35845.4 g 102 /min 113 mm[Hg] 74 mm[Hg] Angela Rempt [facility] 7 13:19:34 Social History Question Answer Notes LastModified by Organizat ion Details LastModified Time Tobacco Smoking Status Current Every Day Smoker 1 pk pd Angela Rempt null, [facility] 12/07/2016 13:15:52 Is Blood Transfusion Acceptable In [...] SNOMED-CT Code Diagnosis ICD10 Code Diagnosis Note [id number] [facility] [address] [place] [address] 07/04/2013 00:00:00 [id number] [facility] [address] [place] [address] 08/02/2013 00:00:00 [id number] AUDREY LAY MD SHO1 [address] [address] 12/07/2016 12:52:25 12/07/2016 13:54:50 Gynecologic examination 15770456 Z01.419 Health Concerns Section Related Observation LastModified by Organization Detai ls LastModified Time None Recorded Concern Status LastModified by Organization Details LastModified Time None Recorded Advance Directives Directive None Recorded Payers Insurance Date Sequence Insurance Name Policy Number Policy Hirsch Covered Member ID Hirsch Member ID Guarantor Name 12/13/2016 2 [place] [id number] Maddi Amalia [id number] Maddi Amalia 12/07/2016 1 [place]ICARE [place]: NGS Maddi Amalia [id number] Maddi Amalia Notes Date Note Type Note Provider Name and Address Organization Details Recorded Time 12/07/2016 text/html [facility] Annual GYNReported bypatient.Menstrual cycle:postmenopausa l Breast:No breast pain Current Contraception:Satis fied with current contraception Preventive measures:Encourage regular exercise; Encourage regular mammograms starting age 40 Here for annual exam--last seen 2013. Dr Baez . In therapy for depression. AUDREY LAY MD [address] [place] [address], [address] Floor, [place], [address], [place] [facility] 12/07/2016 13:36:16 OBGyn Episode No OBEpisode recorded.
--- OUTSIDE RECORDS SUMMARY | 2024-09-04 09:03 | XMS_ITS | Encounter Summary ---
Author Organization [place] [facility] Care Team Providers Care Financial Auditor Name Role Phone Tito Velasco MD Primary Care Provider [phone] Encounter Details Date Type Department Care Team (Late st Contact Info) Description 08/01/2015 Abstract [facility] [place] [address] [place] [address] Provider, Historical . Social History Tobacco Use [...] on filedocumented in this encounter Care Teams Financial Auditor Relationship Specialty Start Date End Date Tito Velasco MD PCP - General Internal Medicine 12/07/16 documented as of this encounter
--- OUTSIDE RECORDS SUMMARY | 2024-09-04 09:03 | XMS_ITS | Clinical Summary ---
Author Organization [facility] Address [address] [place] [address] Care Team Providers Care Grades 9 12 Tutor Name Role Phone Tito Velasco MD Primary Care Provider [phone] Allergies No known active allergies Social History [...] 80 01/27/2016 2:43 PM EST Temperature 36.4 C (97.5 F) 01/27/2016 2:43 PM EST Respiratory Rate 18 01/27/2016 2:43 PM EST [...] Vaccine (1 of 2) 2009 COVID-19 Vaccine ( - 2023-2 5 season) 2023 DXA Bone Density (Females,Ag es 65 and older) 2024 Influenza Vaccine 10/05/2024 RSV Vaccine 60 years and old er and Patients (1 - 1-dose 75+ series) 2034 Hepatitis B Vaccines Aged Out No long er eligible based on patient's age to complete this topic Insurance MEDICARE PART A & B [facility] Care Teams Grades 9 12 Tutor Relationship Specialty Start Date End Date Tito Velasco MD PCP - General Internal Medicine 01/27/16
== END ==
LOC: HO.CARD 08:47
PROVIDERS: PCP Nurse Practitioner Family; Visit Provider Nurse Practitioner Family
DX: Z01.818 Encounter for other preprocedural examination (principal); R94.31 Abnormal electrocardiogram [ECG] [EKG]; F17.200 Nicotine dependence, unspecified, uncomplicated
CPT/HCPCS: 93306

== ENCOUNTER → 2024-09-04 08:50 | Outpatient (BNV) | payer MEDICARE, SELFPAY | PROVIDERS: PCP Nurse Practitioner Family; Visit Provider Internal Medicine Cardiovascular Disease | DX: I51.89 Other ill-defined heart diseases (principal) | CPT/HCPCS: 93306 ==

== ENCOUNTER 2024-10-04 08:25 | Outpatient (REF) | payer MEDICARE, SELFPAY ==
--- OUTSIDE RECORDS SUMMARY | 2024-10-05 08:37 | XMS_ITS | Clinical Summary ---
Author Organization [facility] Address [address] [place] [address] Phone Care Team Providers Care Metalizer Field Operation Name Role Phone Pcp, Unknown Primary Care [...] State: [place] E&M Billing based on time ([id number]): Yes Total time spent on date of [...] EST) SODIUM 137 133 - 146 mmol/L [facility] CHLORIDE 102 96 - 108 mmol/L [facility] POTASSIUM 4.7 3.3 - 5.1 mmol/L [facility] CO2 24 21 - 35 mmol/L [facility] BUN 17 6 - 19 mg/dL [facility] CREATININE 1.10 0.5 - 1.5 mg/dL [facility] GLUCOSE 88 70 - 99 mg/dL [facility] CALCIUM 9.9 8.4 - 10.3 mg/dL [facility] EGFR 56(L) >59 mL/min/1.7 3m2 [facility] Comment:Estimated glomerular filtration rate calculated using the CKD-EPI refit equation. ANION GAP 16 10 - 20 mmol/L [facility] Blood 04/01/2022 2:29 PM EST 04/01/2022 2:32 PM EST Sandra Hernandez PA-C LAB BLOOD ORDERABLES Final Result [facility] [address] [place] [address] * (ABNORMAL) TSH (12/18/2021 7:09 AM EDT) TSH 0.20(L) 0.27 - 4.20 uIU/mL [facility] Blood 12/18/2021 7:09 AM EDT 12/18/2021 9:23 AM EDT us Phoebe Neal MD LAB BLOOD ORDERABLES Fin al Result Performing Organization Address [facility] Co de Phone Number [address] [address] * (ABNORMAL) Lipid panel (12/18/2021 7:09 AM EDT) Pathologist [facility] HDL 84 mg/dL [facility] Comment: Interpretation <40 mg/dL: Low HDL cholesterol (major risk factor for CHD) Greater than or equal to 60 mg/dL: High HDL cholesterol ( negative risk factor for CHD) HDL - cholesterol is affected by a number of factors, e.g. smoking, excerise, hormones, sex and age. CHOLESTEROL 233 0 - 240 mg/dL [facility] TRIGLYCERIDES 61 30 - 160 mg/dL [facility] LDL 137(H) 50 - 129 mg/dL [facility] Comment: LDL levels in terms of risk for coronary heart disease: <100 mg/dL: Optimal 100-129 mg/dL: Near or above optimal 130-159 mg/dL: Borderline high 160-189 mg/dL: High >190 mg/dL: Very High CARDIAC RISK RATIO 2.8(L) 3.3 - 4.4 [facility] Blood 12/18/2021 7:09 AM EDT 12/18/2021 9:19 AM EDT us Phoebe Neal MD LAB BLOOD ORDERABLES Fin al Result Performing Organization Address City/[facility] Co de Phone Number [address] [address] * Hepatitis C antibody, qualitative (04/18/2019 8:43 AM EST) HCV NON-REACTIV E NON-REACTI VE [facility] Blood 04/18/2019 8:43 AM EST 04/18/2019 8:46 AM EST Tito Velasco MD LAB BLOOD ORDERABLES Final Result [facility] [address] [place] [address] from Last 3 Months or Most Recently Relevant to Health Maintenance Insurance [employer] O MEDICARE REPLACEMENT AETNA O MEDICARE REPLACEMENT AET[employer] PPO MEDICARE REPLACEMENT AET[employer] PPO MEDICARE REPLACEMENT AETNA PPO MEDICARE REPLACEMENT AETNA PPO MEDICARE REPLACEMENT Advance Directives For more information, please contact: [phone] (9AM - 5PM [facility], Tuesday-Tuesday) * Full Code (Latest Code Status on File) Date Activated Date Inactivated Comments 04/02/2022 9:29 PM Question Answer Comments Code Status Confirmed With: Patient Code Status Communicated To: Inpatient Attending Care Teams Metalizer Field Operation Relationship Specialty Start Date End Date Pcp, Unknown PCP - General 05/21/24 Additional Source Comments The information contained in this document represents components of the legal health record. It is not the complete legal health record.[facility]
--- OUTSIDE RECORDS SUMMARY | 2024-10-05 08:37 | XMS_ITS | Encounter Summary ---
Author Organization [facility] Care Team Providers Care Communication Signals Intelligence Name Role Phone Tito Velasco MD Primary Care Provider [phone] Encounter Details Date Type Department Care Team (Late st Contact Info) Description 08/01/2015 Abstract [facility] [place] [address], [address] [place] [address] Provider, Historical . Social History Tobacco Use [...] on filedocumented in this encounter Care Teams Communication Signals Intelligence Relationship Specialty Start Date End Date Tito Velasco MD PCP - General Internal Medicine 12/07/16 documented as of this encounter
--- OUTSIDE RECORDS SUMMARY | 2024-10-05 08:37 | XMS_ITS | Clinical Summary ---
Author Organization [facility] Address [address] [place] [address] Care Team Providers Care Product Development Manager Name Role Phone Tito Velasco MD [...] Hearing loss 01/05/2018 Overview (04/10/2023): Impression - [id number]: refer to audiology Encounter for preventive health examination 09/04 Tinnitus 06/02/2016 Obesity 03/09/2016 Overview (04/10/2023): Impression - 61Ijq5037: has lost 30 lbs intentially over the last year - doing well Hyperlipidemia 03/14/2013 Overview (04/10/2023): Impression - 36Yon6576: check labs Insomnia 02/14/2012 Overview (04/10/2023): Impression - 41Pgi6630: takes ambien prn Obstructive sleep apnea 08/12/2011 Overview (04/10/2023): Impression - 44Grs5745: symptoms resolved after weight loss Vitamin D deficiency 08/12/2011 Encounter for preventive health examination 05/2009 Benign essential hypertension 10/07/2009 Overview (04/10/2023): Impression - 05Nwk4240: controlled - continue current meds Hypothyroidism 10/07/2009 Overview (04/10/2023): Impression - 72Cpn5205: clinically euthyroid Resolved Problems Problem Noted Date [...] lemia : Brother Psych/Mental Health Brother Psychiat croinna Disorders : Brother CAD/PVD - Early Father [...] Date and Time utilized. Testing Performed at: [email or web address], [address] [place] [address], , Slot Technician: Mary Jane Haider MD CL#[id number] us Tito Velasco MD LABORATORY Final Result [...] PM EST FASTING: YES Testing Performed at: [email or web address], [address] [place] [address], , Slot Technician: Mary Jane Haider MD CL#[id number] [place] [facility] Final Re sult PHCT CONVERSIONS * [...] of collection device in vial PHCT CONVERSIONS Dog Handler (Cvx/Vag) BLC,CT(ASCP) CT screening location: [place] [address] PHCT CONVERSIONS COMMENT SEE NOTE PHCT CONVERSIONS [...] PM EST [facility] Testing performed at: 1, [facility], [address] [place] [address], [address], [place], [address], Slot Technician: Shorty Marroquin MD [facility] Collection Date/Time: [id number] [facility] Results Received Date/Time: [id number] [facility] Reported Date/Time: [id number] [place] APRN PATHOLOGY-INTERFACED Fin al Result Performing Organization Address City/[facility]/ZIP Co de Phone Number PHCT CONVERSIONS from Last 3 Months or Most Recently Relevant to Health Maintenance Care Teams Product Development Manager Relationship Specialty Start Date End Date Tito Velasco MD PCP - General 10/11/22 Tito Velasco MD PCP - Backup PCP Internal Medicine 04/07/23
--- OUTSIDE RECORDS SUMMARY | 2024-10-05 08:37 | XMS_ITS | Clinical Summary ---
Author Organization [facility] Address [address] [place] [address] Care Team Providers Care Chronic Condition Nurse Name Role Phone Tito Velasco MD Primary Care Provider [phone] Allergies No known active allergies Social History [...] topic Insurance MEDICARE PART A & B [facility] Care Teams Chronic Condition Nurse Relationship Specialty Start Date End Date Tito Velasco MD PCP - General Internal Medicine 01/27/16
== END 2024-10-04 08:26 | disposition home or self-care (01) ==
LOC: HO.HOSX 08:25
PROVIDERS: Visit Provider Physician Assistant
DX: Z01.818 Encounter for other preprocedural examination (principal); M16.11 Unilateral primary osteoarthritis, right hip; I10 Essential (primary) hypertension; E78.5 Hyperlipidemia, unspecified; Z79.899 Other long term (current) drug therapy; F17.210 Nicotine dependence, cigarettes, uncomplicated
CPT/HCPCS: 72170; 99212

== ENCOUNTER 2024-10-04 11:16 | Outpatient (AMB) | payer MEDICARE, SELFPAY ==
--- NOTE | 2024-10-03 13:02 | A.OFFVIS_ITS ---
Vital Signs 10/04/24 11:36 Height 5 ft 3 in Weight 198 lb BMI 35.1 Intake Visit Reasons: Pre-Op: R GOPAL w/NE 10/09/24 Intake Note: Maddi is a 64 year old female who presents today for a preoperative visit of right GOPAL, DOS 10/09/24. Pain management agreement reviewed and signed. Allergies [id number]-XpW Reductase Inhibitor Allergy (Severe, Verified 10/04/24 11:36) joint pain, stiffness, muscle aches atorvastatin Adverse Reaction (Severe, Verified 10/04/24 11:36) Palpitations ezetimibe Adverse Reaction (Severe, Verified 10/04/24 11:36) Palpitations Medication List - Last Reconciled 10/04/24 by Kim Thomas PA-C [3 in 1 commode DURATION : LIFETIME] acetaminophen ER (Tylenol 8 Hour) 1,300 mg PO Q8H PRN bupropion HCl XL (Wellbutrin XL) 150 mg PO QAM cholecalciferol (vitamin D3) 50 mcg PO DAILY 90 days famotidine 20 mg PO DAILY PRN [Folding Front Wheeled walker Duration: 99 days] levothyroxine 137 mcg PO DAILY olmesartan 5 mg PO DAILY [SHOWER CHAIR DURATION: LIFETIME] walker Rollator walker with seat and brakes HPI Comments Details: Ms Holland presents to the office today for Orthopedic Pre op clearance. She is scheduled for a Right total hip arthroplasty with Dr Frazier on 10/09/24. Patient reports that she has had ongoing pain for about 2 1/2 years now. She did complete a course of physical therapy which was mildly helpful. She has had an injection approximately one year ago which was helpful for about 1 week. She states the pain is worse with activity. She is unable to take NSAIDS due to kidney disease and avoids Tylenol as it has not been effective for pain control. She has had imagining of the right hip which is significant for severe oa. Patient does live alone in a 1 level home with a few steps to enter. She does own a walker and a cane. Patient is a smoker, 1 PPD. She has dyslipidemia which she is not taking medication for as she can not tolerate statins or ezetimibe. She also has hypertension which is controlled with Olmesartan 5 mg daily. She also takes levothyroxine 135 7 mg p.o. daily. Bupropion 300 mg p.o. q.a.m. Prior Medical clearances: -PCP: Patient has been cleared by her primary doctor Grayson Stone, EKG was performed which did not show any significant abnormalities that would require further workup. No other cardiopulmonary or vascular comorbidities noted. [facility] Medical History (Updated 09/11/24 @ 10:14 by Nargis Bailon, TRANG) Osteoarthritis Acid reflux Depression CKD (chronic kidney disease) Screening for cervical cancer Screening for colon cancer Well woman exam Osteopenia Right rotator cuff tear PTSD (post-traumatic stress disorder) Borderline high cholesterol Hypertension Hypothyroidism Surgical History Hx of eye surgery (~12/2022) History of wisdom tooth extraction H/O rotator cuff surgery (~2014) H/O left knee surgery Family History Other Mental health disorder Social History (Updated 09/11/24 @ 10:15 by Nargis Bailon RN) Household Members: None Housing: Apartment Are you a primary post acute care nurse practitioner to a significant other at home: No Do you presently have visiting nurse or other home services: No Patient Tobacco Use Status: Current everyday Tobacco user Tobacco use type: Cigarette Cigarettes Per Day: 15 e-Cigarette/Vaping Use: Never Used Substance Use Type: Marijuana service: No Current occupational status: retired Cognitive needs: No Hearing needs: No Vision needs: Yes Review of Systems Const All systems reviewed & are unremarkable except as noted in HPI and below Physical Exam Vital Signs: BMI result Body Mass Index 35.1 Const General: cooperative, healthy appearing, comfortable and no acute distress Orientation/consciousness: patient oriented x3 HEENT Head: Yes normal to inspection and Yes atraumatic Ears: hearing grossly normal bilaterally Mouth: moist mucous membranes Eyes General: appearance normal, both eyes and all related structures EOM: EOMs intact bilaterally Neck Neck: Yes normal visual inspection and Yes no lymphadenopathy Chest Other: no audible wheezing. Resp Other: No audible wheezing Effort & Inspection: normal respiratory effort and able to speak in complete sentences Cardio Peripheral pulses: Peripheral pulses 2+ throughout Back/Spine/Pelvis Cervical Spine: normal cervical lordosis Skin General skin exam: no rashes or lesions noted Neuro General: patient oriented x3 Extrem Other: Right hip skin intact, no open wounds or abraisons. Trendelenburg gait on the right 0-130 degrees of flexion No evidence of venous stasis Neurovascularly intact Psych Appearance: well kempt Mental Status: mental status grossly normal Speech and movement: Normal speech and movement present Affect: normal affect Attitude: cooperative Results Reviewed Results Reviewed: X-rays of the right hip obtained in the office today for surgical planning Assessment & Plan Assessment & Plan (1) Osteoarthritis of right hip: Code(s): M16.11 - Unilateral primary osteoarthritis, right hip Category: Medical Plan: MS Holland exhausted all conservative measures consisting of lifestyle modifications, physical therapy, analgesics, corticosteroid injections and use of assisted devices and continues to have significant limitations in daily activities along with decreased quality of life. Given the patient's desire to improve their quality of life, surgical intervention consisting of joint replacement surgery is recommended at this time.? We discussed the procedure in detail today; which includes pre op preparation with labs and reviewing patients medication regimen prior to surgery. The patient was given an order for a BMP, CBC with diff, type and screen to be obtained at the lab in the hospital prior to surgery. I discussed at length the post op course which includes physical therapy services in the hospital along with the discharge routine and the patients plan upon discharge. The patient would like to be discharged home with VNA services. She does have a friend who will come and stay with her for 1 week postoperatively. I explained to the patient, once they are DC home, they will receive VNA services which will include PT 2-3x per week. We also discussed their choice for outpatient PT once they are discharged from home PT; however [place] she [place] not sure where she would go to physical therapy and she does not have the transportation. Due to this she may have home physical therapy services for longer than 2 weeks. She states she spoke with [email or web address] who did approve this. Post op DVT ppx was also discussed and the considering the patient does not have a history of blood clot or cancer she can take aspirin 325 mg p.o. b.i.d. for DVT prophylaxis. I did explain smoking can increase her risk however if she is planning to quit and is up and mobile this will help lower her risk. I reviewed with the patient their post op pain medication regimen along with the detailed wean program. The patient did express understanding of this and agreed to the narcotic policy. Lastly, I discussed with the patient the risks to the procedure. Risks including but not limited to infection, injury to surrounding nerves, tissue , bone, small and large vessels, stiffness, aseptic loosening, fracture, dislocation, amputation, DVT/PE along with intraoperative complications including but not limited to . The patient does express understanding, all questions were answered and the patient would like to proceed? with right total hip arthroplasty with Dr. Frazier. Consents were signed and dated while in the office today.? Orders: Orders Complete Blood Count Auto Diff Today Z01.818 - Encounter for other preprocedural examination Type and Screen Today Z01.818 - Encounter for other preprocedural examination XR pelvis 1-2V Today M25.559 - Pain in unspecified hip Basic Metabolic Panel Today Z01.818 - Encounter for other preprocedural examination Coding Level of Care Code Est Pt Level 4 (27908) Diagnoses Osteoarthritis of right hip M16.11
--- NOTE | ~2024-10-04 | XR_ITS ---
EXAMINATION: XR PELVIS CLINICAL INFORMATION: M25.559 - Pain in unspecified hip COMPARISON: Collated to CT dated April 20, 2024. TECHNIQUE: AP view of the pelvis. FINDINGS: Subchondral cyst formation and sclerosis and the articular surface and joint space narrowing may right coxofemoral joint. Small femoral head deformity. No acute cortical disruption in the bony pelvis. The left coxofemoral joint is intact with preservation of the joint space. Syndesmophyte formation/marginal osteophyte formation on the right side of L4-5 and on the left of L3-4. S-shaped curvature of the lower lumbar spine. XR/XR pelvis 1-2V IMPRESSION: Moderate to severe osteoarthrosis/osteoarthritis with a questionable avascular necrosis, right hip. Electronically signed by: Fredo Cisse MD 10/04/2024 11:32 AM EDT
[2024-10-04 11:36] VITALS: BMI 35.1
--- OUTSIDE RECORDS SUMMARY | 2024-10-04 12:07 | XMS_ITS | Clinical Summary ---
Author Organization [facility] Address [address] [place] [address] Phone Care Team Providers Care Workcell Operator Name Role Phone Pcp, Unknown Primary Care Provider Unavailabl e Allergies No known active allergies Medications * This document contains information received from the source organization and may not represent a complete record from that organization. OLANZapine (ZYPREXA) 2.5 MG tablet Take 1 tablet (2.5 mg total) by mouth nightly at bedtime as needed (sleep). 15 tablet 3 Active levothyroxine (SYNTHROID, LEVOTHROID) 125 MCG tabletIndications :Medication refill Take 1 tablet (125 mcg total) by mouth every morning. 90 tablet 1 3 Active buPROPion (WELLBUTRIN XL) 300 MG ER 24 hr tabletIndications :Medication refill Take 1 tablet (300 mg total) by mouth daily. 90 tablet 3 Active olmesartan (BENICAR) 5 mg tabletIndications :Essential hypertension take 2 tablets by mouth every day 60 tablet 4 Active Active Problems Problem Noted Date Diagnosed Date Major depressive disorder, r ecurrent severe without psychotic features 04/02/2022 Suicidal ideation 04/01/2022 Essential hypertension 12/21/2021 Hypothyroidism (acquired) 12/21/2021 Impaired fasting glucose 12/21/2021 COVID-19 virus infection 12/02/2021 Assessment & Plan (12/02/2021 4:01 PM EDT): Virtual Visit Attestation Modality: interactive audio (phone only) Provider Location: practice location Patient Location: home Patient State: [place] E&M Billing based on time ([id number]): Yes Total time spent on date of service (min): 6 Time spent with patient during visit (min): 8 I personally spent the total time as documented on care for this patient on the date of the encounter, of which the time spent with the patient during the encounter has been separately documented. Maddi was diagnosed with COVID today and she is mildly symptomatic. Paxlovid is contraindicated secondary to her psychiatric medications that she is taking and she notes that she cannot stop these medications thus I informed her that the medication is not indicated but she should undergo symptomatic management. She should call if things get worse or if they do not improve. I gave her guidance regarding quarantining. She will call if there is any other issues or concerns. She understands and agrees. Immunizations Immunization Administration Dates Next Due Influenza Quadrivalent Preservative Free IM 09/2021,12/08/2019 Family History Medical History Relation Comments Diabetes Father Hyperlipidemia Mother Relation Status Comments Father Mother Social History Tobacco Use Types Packs/Day Years Used Date Smoking Tobacco: Every Day Cigarettes 0.5 46.9 Started: 11/13/1978 Smokeless Tobacco: Never Tobacco Cessation:Ready to Q uit: Not Asked; Counseling Given: Yes Alcohol Use Standard Drinks/Week Comments Not Currently 0 (1 standard drink = 0.6 oz pur e alcohol) Child or Family Care Answer Date Record ed Do you have problems with on e of the following making it difficult for you to work, study, or receive health care? No 11/10/2021 Education Answer Date Recorded Are you interested in more education? Not on dennise e 11/12/2023 Are you concerned about learning? Not on file 11/12/2023 No 11/12/2023 No 11/12/2023 Food Answer Date Recorded Within the past 6 months we worried whether our food would run out before we got money to buy more. Sometimes True 022 Within the past 6 months the food we bought just didn't last and we didn't have enough money to get more. Sometimes True 08/2021 Residential Stability Answer Date Recor ded What is your housing situation today? I have velia cunningham 11/10/2021 How many times have you move d in the past 12 months? Zero (I did not move) 11/10/2021 Paying for Meds Answer Date Recorded Do you have trouble paying for medicines? No 11/10/2021 Paying Utility Bills Answer Date Record ed Do you have trouble paying your heating or elect ricity bill? Yes 11/10/2021 Transportation Answer Date Recorded Has the lack of transportati on kept you from medical appointments or from getting medications? No 11/10/2021 Unemployment Answer Date Recorded Are you currently unemployed or working on a part-time or temporary basis, and looking for work? No 11/10/2021 Digital Access Answer Date Recorded No 08/03/2022 No 08/03/2022 Reliable internet access at home? Not on file 08/03/2022 Device with a working camera? Not on file Intimate Partner Violence Answer Date R ecorded Are you denied basic needs s uch as food, clothing, or medical care? No 04/02/2022 In the past 12 months have y ou been in a relationship with a person who hurts, threatens, or tries to control you? No 04/02/2022 Are you denied basic needs s uch as food, clothing, or medical care? No 04/02/2022 In the past 12 months have y ou been in a relationship with a person who hurts, threatens, or tries to control you? No 04/02/2022 Comments Unknown Sex and Gender Information Value Date Recorded Sex Assigned at Female 02/17/2022 1:59 PM EST Legal Sex Female 8:26 AM EST Gender Identity Female 02/17/2022 1:59 PM EST Sexual Orientation Queer 02/17/2022 1: 59 PM EST Last Filed Vital Signs Vital Sign Reading Time Taken Comments Blood Pressure 126/74 04/19/2022 1:35 PM EST Pulse 105 04/19/2022 1:35 PM EST Temperature 36.2 C (97.2 F) 04/19/2022 1:35 PM EST Respiratory Rate 16 04/19/2022 1:35 PM EST Oxygen Saturation 97% 04/19/2022 1:35 PM EST Inhaled Oxygen Concentration - - Weight 78.5 kg (173 lb) 04/19/2022 1:35 PM EST Height 157.5 cm (5' 2 ) 04/19/2022 1:35 PM EST Body Mass Index 31.64 04/19/2022 1:35 PM EST Plan of Treatment Health Maintenance Due Date Last Done Comments Adult Td,Tdap Booster 1959 SMOKING Hx and SMOKELESS TOBACCO SCREENING 1972 HIV ONE-TIME SCREENING (18-65 YEARS) 1977 PNEUMOCOCCAL VACCINES (50+ years) (1 of 2 - PCV) 1978 MAMMOGRAM 1999 COLOGUARD 2004 COLONOSCOPY 2004 COLORECTAL CANCER SCREENING 2004 FIT TEST 2004 FOBT 2004 SIGMOIDOSCOPY 2004 VIRTUAL COLONOSCOPY 2004 ZOSTER VACCINES (1 of 2) 2009 BLOOD PRESSURE 10/17/2022 04/19/2022 DEPRESSION SCREENING 11/10/2022 11/10/2021 TSH LEVEL 12/18/2022 12/18/2021, 06/06, 04/18/2019 CREATININE LEVEL 04/01/2023 04/01/2022, , 07/01/2020, Additional history exists POTASSIUM LEVEL 04/01/2023 04/01/2022, 12/05, 07/01/2020, Additional history exists COVID-19 VACCINE ( season) 2023 01/18/2022, 03/09/2021, 06/20/2020, Additional history exists OSTEOPOROSIS SCREENING INITIAL (ONE-TIME) 2024 SCREENING FOR DIABETES 04/01/2025 04/01/2022, 2021 LIPID PANEL 12/18/2026 12/18/2021, 06/06, 04/18/2019 RSV VACCINE (1 - 1-dose 75+ series) 2034 HEPATITIS C SCREENING Completed 04/18/2019 HEPATITIS A VACCINES Aged Out No long er eligible based on patient's age to complete this topic HIB VACCINES Aged Out No longer eligi ble based on patient's age to complete this topic MENINGOCOCCAL VACCINES (ACWY) Aged Out No longer eligible based on patient's age to complete this topic MENINGOCOCCAL VACCINES (B) Aged Out N o longer eligible based on patient's age to complete this topic Medical Devices Not on file Procedures Procedure Name Priority Date/Time Associated Diagnosis Comments BASIC METABOLIC PANEL STAT 04/01/2022 2:29 PM EST LIPID PANEL Routine 12/18/2021 7:09 AM EDT Essential hypertension Class 1 obesity due to excess calories with serious comorbidity and body mass index (BMI) of 30.0 to 30.9 in adult TSH Routine 12/18/2021 7:09 AM EDT Acquired hypothyroidism HEPATITIS C ANTIBODY, QUALITATIVE Routine 04/18/2019 8:43 AM EST Essential hypertension, malignant Uterine leiomyoma, unspecified location Hypothyroidism, adult Hyperlipidemia, unspecified hyperlipidemia type from Last 3 Months or Most Recently Relevant to Health Maintenance Results * (ABNORMAL) Basic metabolic panel (04/01/2022 2:29 PM EST) SODIUM 137 133 - 146 mmol/L [facility] CHLORIDE 102 96 - 108 mmol/L [facility] POTASSIUM 4.7 3.3 - 5.1 mmol/L [facility] CO2 24 21 - 35 mmol/L [facility] BUN 17 6 - 19 mg/dL [facility] CREATININE 1.10 0.5 - 1.5 mg/dL [facility] GLUCOSE 88 70 - 99 mg/dL [facility] CALCIUM 9.9 8.4 - 10.3 mg/dL [facility] EGFR 56(L) >59 mL/min/1.7 3m2 [facility] Comment:Estimated glomerular filtration rate calculated using the CKD-EPI refit equation. ANION GAP 16 10 - 20 mmol/L [facility] Blood 04/01/2022 2:29 PM EST 04/01/2022 2:32 PM EST Sandra Hernandez PA-C LAB BLOOD ORDERABLES Final Result [facility] [address] [place] [address] * (ABNORMAL) TSH (12/18/2021 7:09 AM EDT) TSH 0.20(L) 0.27 - 4.20 uIU/mL [facility] Blood 12/18/2021 7:09 AM EDT 12/18/2021 9:23 AM EDT us Phoebe Neal MD LAB BLOOD ORDERABLES Fin al Result Performing Organization Address [facility] Co de Phone Number [address] [address] * (ABNORMAL) Lipid panel (12/18/2021 7:09 AM EDT) Pathologist [facility] HDL 84 mg/dL [facility] Comment: Interpretation <40 mg/dL: Low HDL cholesterol (major risk factor for CHD) Greater than or equal to 60 mg/dL: High HDL cholesterol ( negative risk factor for CHD) HDL - cholesterol is affected by a number of factors, e.g. smoking, excerise, hormones, sex and age. CHOLESTEROL 233 0 - 240 mg/dL [facility] TRIGLYCERIDES 61 30 - 160 mg/dL [facility] LDL 137(H) 50 - 129 mg/dL [facility] Comment: LDL levels in terms of risk for coronary heart disease: <100 mg/dL: Optimal 100-129 mg/dL: Near or above optimal 130-159 mg/dL: Borderline high 160-189 mg/dL: High >190 mg/dL: Very High CARDIAC RISK RATIO 2.8(L) 3.3 - 4.4 C [facility] Blood 12/18/2021 7:09 AM EDT 12/18/2021 9:19 AM EDT us Phoebe Neal MD LAB BLOOD ORDERABLES Fin al Result Performing Organization Address City/[facility] Co de Phone Number [address] [address] * Hepatitis C antibody, qualitative (04/18/2019 8:43 AM EST) HCV NON-REACTIV E NON-REACTI VE [facility] Blood 04/18/2019 8:43 AM EST 04/18/2019 8:46 AM EST Tito Velasco MD LAB BLOOD ORDERABLES Final Result [facility] [address] [place] [address] from Last 3 Months or Most Recently Relevant to Health Maintenance Insurance [employer] O MEDICARE REPLACEMENT AETNA O MEDICARE REPLACEMENT AET[employer] PPO MEDICARE REPLACEMENT AETNA PPO MEDICARE REPLACEMENT AET[employer] PPO MEDICARE REPLACEMENT AET[employer] PPO MEDICARE REPLACEMENT Advance Directives For more information, please contact: [phone] (9AM - 5PM [facility], Tuesday-Tuesday) * Full Code (Latest Code Status on File) Date Activated Date Inactivated Comments 04/02/2022 9:29 PM Question Answer Comments Code Status Confirmed With: Patient Code Status Communicated To: Inpatient Attending Care Teams Workcell Operator Relationship Specialty Start Date End Date Pcp, Unknown PCP - General 05/21/24 Additional Source Comments The information contained in this document represents components of the legal health record. It is not the complete legal health record.[facility]
--- OUTSIDE RECORDS SUMMARY | 2024-10-04 12:07 | XMS_ITS | Clinical Summary ---
Author Organization [facility] Address [address] [place] [address] Care Team Providers Care Government Guard Name Role Phone Tito Velasco MD Primary [...] 02/02/2018 Encounter for annual routine gynecological exami [facility] 02/02/2018 Hearing loss 01/05/2018 Overview (04/10/2023): Impression - [id number]: refer to audiology Encounter for preventive health examination 09/04 Tinnitus 06/02/2016 Obesity 03/09/2016 Overview (04/10/2023): Impression - 93Vbn9070: has lost 30 lbs intentially over the last year - doing well Hyperlipidemia 03/14/2013 Overview (04/10/2023): Impression - 81Ycy0845: check labs Insomnia 02/14/2012 Overview (04/10/2023): Impression - 02Lrz7332: takes ambien prn Obstructive sleep apnea 08/12/2011 Overview (04/10/2023): Impression - 92Pbl6969: symptoms resolved after weight loss Vitamin D deficiency 08/12/2011 Encounter for preventive health examination 05/2009 Benign essential hypertension 10/07/2009 Overview (04/10/2023): Impression - 45Gku8304: controlled - continue current meds Hypothyroidism 10/07/2009 Overview (04/10/2023): Impression - 99Nqn0561: clinically euthyroid Resolved Problems Problem Noted Date [...] 04/07, 01/05/2018, Additional history exists HPV Vaccine (No Doses Required) Completed Hep A Aged Out No longer eligi [...] Date and Time utilized. Testing Performed at: [facility], [address] [place] [id number], , Gas Regulator Repairer: Mary Jane Haider MD CL#[id number] us Tito Velasco MD LABORATORY Final Result [...] PM EST FASTING: YES Testing Performed at: [facility], [address] [place] [id number], , Gas Regulator Repairer: Mary Jane Haider MD CL#[id number] [place] [facility] LABOR[facility] Final Re sult PHCT CONVERSIONS * CYTOLOGY, THINPREP PAP (02/03/2018 [...] of collection device in vial PHCT CONVERSIONS Electrical Assistant (Cvx/Vag) BLC,CT(ASCP) CT screening location: [place] [address] PHCT CONVERSIONS COMMENT SEE NOTE PHCT CONVERSIONS [...] PM EST [facility] Testing performed at: 1, [facility], [address] [place] [address], [address], [place], [address], Gas Regulator Repairer: Shorty Marroquin MD [facility] Collection Date/Time: [id number] [facility] Results Received Date/Time: [id number] [facility] Reported Date/Time: [id number] [place] APRN PATHOLOGY-INTERFACED Fin al Result Performing Organization Address City/[facility]/ZIP Co de Phone Number PHCT CONVERSIONS from Last 3 Months or Most Recently Relevant to Health Maintenance Care Teams Government Guard Relationship Specialty Start Date End Date Tito Velasco MD PCP - General 10/11/22 Tito Velasco MD PCP - Backup PCP Internal Medicine 04/07/23
--- OUTSIDE RECORDS SUMMARY | 2024-10-04 12:07 | XMS_ITS | Encounter Summary ---
Author Organization [place] Care Team Providers Care Reimbursement Counselor Name Role Phone Tito Velasco MD Primary Care Provider [phone] Encounter Details Date Type Department Care Team (Late st Contact Info) Description 08/01/2015 Abstract [facility] [place] [address] [place] [address] Provider, Historical . Social History Tobacco Use [...] on filedocumented in this encounter Care Teams Reimbursement Counselor Relationship Specialty Start Date End Date Tito Velasco MD PCP - General Internal Medicine 12/07/16 documented as of this encounter
--- OUTSIDE RECORDS SUMMARY | 2024-10-04 12:07 | XMS_ITS | Clinical Summary ---
Author Organization [facility] Address [address] [place] [address] Care Team Providers Care Shipping Lead Person Name Role Phone Tito Velasco MD Primary Care Provider [phone] Allergies No known active allergies Social History [...] [facility] & [facility] Care Teams Shipping Lead Person Relationship Specialty Start Date End Date Tito Velasco MD PCP - General Internal Medicine 01/27/16
== END 2024-10-04 12:01 | disposition home or self-care (01) ==
LOC: HO.HOS 11:17
PROVIDERS: PCP Nurse Practitioner Family; Visit Provider Physician Assistant
DX: M16.11 Unilateral primary osteoarthritis, right hip (principal)
CPT/HCPCS: 99024

== ENCOUNTER 2024-10-09 08:28 | Day surgery (SDC) | payer MEDICARE, SELFPAY ==
[2024-09-11 09:52] VITALS: BP 105/64; PULSE 96; RESP 16; O2SAT 98; BMI 36.0
--- NOTE | 2024-09-11 10:22 | HO.ANESPROP2 ---
Documented by User: Becki Shen NP 10/08/24 08:49 HPI - Anesthesia Eval Consult details Narrative: 64yo F for Right Hip Total Replacement, 10/09/24 Medically optimized per PCP - preop EKG abnormal, sent for ECHO and OK No recent illness No CP/SOB with walking outside with walker for 20 mins CKD: follows PCP only, creat 1.08 GERD: H2 block prn - rare use ~ 1 x monthly Smoker: advised quit, none DOS Moderate positive Stop-Bang PMFSH Active Problems Active Problems: All Active Problems Abnormal EKG (Acute) Smoker (Acute) Vitamin D deficiency (Acute) Osteonecrosis of hip (Acute) Uterine myoma (Acute) Uterine mass (Acute) Pre-op evaluation (Acute) Enlarged uterus (Acute) Osteoarthritis of right hip (Acute) Dyslipidemia (Acute) Post-menopausal (Acute) CKD (chronic kidney disease) (Acute) Arthritis of right hip (Acute) Cannabis abuse (Acute) Compulsive gambling (Acute) Major depressive disorder, recurrent severe without psychotic features (Acute) Hypertension (Acute) Past Medical History Medical History Osteoarthritis Acid reflux Depression CKD (chronic kidney disease) Screening for cervical cancer Screening for colon cancer Well woman exam Osteopenia Right rotator cuff tear PTSD (post-traumatic stress disorder) Borderline high cholesterol Hypertension Hypothyroidism Family History Family History Other Mental health disorder Family history of problems with anesthesia: No Surgical History Surgical History Hx of eye surgery (~12/2022) History of wisdom tooth extraction H/O rotator cuff surgery (~2014) H/O left knee surgery History of Problems with Anesthesia: No Social History Social History Household Members: None Housing: Apartment Are you a primary hospice care consultant to a significant other at home: No Do you presently have visiting nurse or other home services: No Patient Tobacco Use Status: Current everyday Tobacco user Tobacco use type: Cigarette Cigarettes Per Day: 15 Smoked in Last 30 Days: Yes e-Cigarette/Vaping Use: Never Used Patient Interested in Nicotine Replacement: No Substance Use Type: Marijuana Substance Use Type Other:: quit smoking marijuana 05/2022 Have you been hit, kicked, punched, or otherwise hurt by someone within the past year? If so, by whom?: No Are you DNR?: No Advance Directives: No Advance Directives Information Provided: Yes Advance Directives on File: No Poor oral hygiene: No service: No Current occupational status: retired Cognitive needs: No Hearing needs: No Vision needs: Yes Meds Allergies Allergy/AdvReac Type Severity Reaction Status Date / Time [id number] Reductase Allergy Severe joint Verified 10/04/24 11:36 Inhibitor pain, stiffness, muscle aches atorvastatin AdvReac Severe Palpitation Verified 10/04/24 11:36 s ezetimibe AdvReac Severe Palpitation Verified 10/04/24 11:36 s Home Medications ?Medication ?Instructions ?Recorded ?Confirmed ?Last Taken ?Type acetaminophen 650 mg 1,300 mg PO Q8H PRN Pain 09/11/24 10/04/24 Unknown History tablet,extended release (Tylenol 8 Hour) famotidine 20 mg tablet 20 mg PO DAILY PRN Acid Reflux 09/11/24 10/04/24 Unknown History bupropion HCl 150 mg 24 hr tablet, 150 mg PO QAM 10/04/24 10/04/24 Unknown History extended release (Wellbutrin XL) Exam Height,Weight and Vital Signs: Height 5 ft 2 in Weight 89.358 kg Last Vital Signs Pulse 96 09/11/24 09:52 Resp 16 09/11/24 09:52 BP 105/64 09/11/24 09:52 Pulse Ox 98 09/11/24 09:52 O2 Del Method Room Air 09/11/24 09:52 Pertinent Lab Results Pertinent Lab Results: Lab Results 09/11/24 10/04/24 10/04/24 Range/Units 10:30 12:05 12:16 WBC 9.6 (4.8-10.8) X10*3/uL RBC 4.97 (4.20-5.50) X10*6/uL Hgb 14.1 (12.0-16.0) g/dl Hct 43.3 (37.0-47.0) % MCV 87.1 (80.0-98.0) fL MCH 28.4 (27.0-33.0) pg MCHC 32.6 (31.0-35.0) g/dl RDW 13.7 (11.0-16.0) % Plt Count 328 (160-400) X10*3/uL MPV 9.9 (9.4-12.3) fL Immature Gran % (Auto) 0.4 (0.0-0.4) % Neut % (Auto) 61.3 (45-73) % Lymph % (Auto) 27.8 (20-40) % Lake % (Auto) 5.9 (2-11) % Eos % (Auto) 4.1 H (0-4) % Baso % (Auto) 0.5 (0-2) % Lymph # (Auto) 2.7 (1.2-4.9) X10*3/uL Lake # (Auto) 0.6 (0.1-1.2) X10*3/uL Eos # (Auto) 0.4 (0.0-0.4) X10*3/uL Baso # (Auto) 0.1 (0.0-0.2) X10*3/uL Abs Immat Gran (auto) 0.04 H (0.00-0.03) X10*3/uL Absolute Neuts (auto) 5.9 (2.0-8.3) x10*3/uL Absolute Nucleated RBC 0.000 (0.0-0.012) X10*3/uL Nucleated RBC % (auto) 0.0 (0.0-0.2) /100WBC Sodium 139 (135-145) mmol/L Potassium 5.2 H (3.3-5.1) mmol/L Chloride 109 H (96-108) mmol/L Carbon Dioxide 22 (22-29) mmol/L Anion Gap 13 (12-20) BUN 19 H (9-16) mg/dL Creatinine 1.04 (0.5-1.4) mg/dL Estim Creat Clear Calc 56.0 Estimated GFR 53 Random Glucose 80 (60-115) mg/dL Calcium 9.3 (8.4-10.2) mg/dL Nasal Screen MRSA (PCR) NEGATIVE (Negative) Nasal S. aureus Screen NEGATIVE (Negative) Nasal MRSA/S.aureus Interp SEE NOTE Blood Type A Positive Antibody Screen NEGATIVE Narrative Narrative: EKG 08/2024 NSR @ 82 Low volt QRS Inferior infarct ECHO 09/2024 Conclusions: - 1. Normal LV ejection fraction of 60 65% with impaired relaxation filling pattern 2. Cardiac valvular Dopplers within normal limits 3. Normal RV systolic pressure 4. No gross pericardial effusion Airway Mallampati Class: II TM Dist: >3cm Neck ROM: Full Loose/Missing/Broken Teeth: No (crowned molars) Heart: RRR Lungs: CTAB Assessment and Plan Assessment Anesthesia Assessment: Anesthesia Plan Discussed, Smoking Cess. Discussed and PAT Visit Final Anesthetic Review Family History of Problems with Anesthesia: No History of Problems with Anesthesia: No Documented by User: Delores Montero MD 10/09/24 11:09 [facility] Past Medical History Medical History Osteoarthritis Acid reflux Depression CKD (chronic kidney disease) Screening for cervical cancer Screening for colon cancer Well woman exam Osteopenia Right rotator cuff tear PTSD (post-traumatic stress disorder) Borderline high cholesterol Hypertension Hypothyroidism Family History Family History Other Mental health disorder Surgical History Surgical History Hx of eye surgery (~12/2022) History of wisdom tooth extraction H/O rotator cuff surgery (~2014) H/O left knee surgery Social History Social History Household Members: None Housing: Apartment Are you a primary hospice care consultant to a significant other at home: No Do you presently have visiting nurse or other home services: No Patient Tobacco Use Status: Current everyday Tobacco user Tobacco use type: Cigarette Cigarettes Per Day: 15 Smoked in Last 30 Days: Yes e-Cigarette/Vaping Use: Never Used Patient Interested in Nicotine Replacement: No Substance Use Type: Marijuana Substance Use Type Other:: quit smoking marijuana 05/2022 Have you been hit, kicked, punched, or otherwise hurt by someone within the past year? If so, by whom?: No Are you DNR?: No Advance Directives: No Advance Directives Information Provided: Yes Advance Directives on File: No Poor oral hygiene: No service: No Current occupational status: retired Cognitive needs: No Hearing needs: No Vision needs: Yes Meds Allergies Allergy/AdvReac Type Severity Reaction Status Date / Time [id number] Reductase Allergy Severe joint Verified 10/04/24 11:36 Inhibitor pain, stiffness, muscle aches atorvastatin AdvReac Severe Palpitation Verified 10/04/24 11:36 s ezetimibe AdvReac Severe Palpitation Verified 10/04/24 11:36 s Home Medications ?Medication ?Instructions ?Recorded ?Confirmed ?Last Taken ?Type acetaminophen 650 mg 1,300 mg PO Q8H PRN Pain 09/11/24 10/04/24 Unknown History tablet,extended release (Tylenol 8 Hour) famotidine 20 mg tablet 20 mg PO DAILY PRN Acid Reflux 09/11/24 10/04/24 Unknown History bupropion HCl 150 mg 24 hr tablet, 150 mg PO QAM 10/04/24 10/04/24 Unknown History extended release (Wellbutrin XL) Assessment and Plan Assessment Anesthesia Assessment: Chart Reviewed Final Anesthetic Review NPO: Yes ASA Class: III Final Preanesthetic Review: No Changes in Pt Med Stat, Meds/Allgs Chart Reviewed, Consent Obtained/Reviewed and Anes Risks/Benef Reviewed Patient Risk: Intermediate Procedure Risk: Intermediate Anesthetic Plan Anesthetic Plan: GA Disposition: Standard PACU
[2024-09-11 14:24] LABS: MRSA Nasal PCR NEGATIVE (Negative); SA Nasal PCR NEGATIVE (Negative)
[2024-10-04 12:18] LABS: MANUAL DIFF FLAG NO
[2024-10-04 12:52] LABS: Hematocrit 43.3 % (37.0-47.0); Hemoglobin 14.1 g/dl (12.0-16.0); Imm Gran Abs Auto 0.04 X10*3/uL (0.00-0.03); Imm Gran Pct Auto 0.4 % (0.0-0.4); Lymphocytes Absolute Auto 2.7 X10*3/uL (1.2-4.9); Mean Corpuscular HGB Conc 32.6 g/dl (31.0-35.0); Mean Corpuscular Hemoglobin 28.4 pg (27.0-33.0); Mean Corpuscular Volume 87.1 fL (80.0-98.0); NRBC Abs Auto 0.000 X10*3/uL (0.0-0.012); NRBC Pct Auto 0.0 /100WBC (0.0-0.2); Platelet Count 328 X10*3/uL (160-400); Red Blood Count 4.97 X10*6/uL (4.20-5.50); White Blood Count 9.6 X10*3/uL (4.8-10.8)
[2024-10-04 13:03] LABS: Anion Gap 13 (12-20); Blood Urea Nitrogen 19 mg/dL (9-16); Calcium 9.3 mg/dL (8.4-10.2); Carbon Dioxide 22 mmol/L (22-29); Chloride 109 mmol/L (96-108); Creatinine Clr Calc Pharmacy 56.0; Estimated Glomerular Filt Rate 53; Potassium 5.2 mmol/L (3.3-5.1); Sodium 139 mmol/L (135-145)
[2024-10-09] VITALS (13 sets, daily range): BP systolic 100–120; BP diastolic 52–72; PULSE 67–93; RESP 12–18; TEMP 36.1–36.6; O2SAT 94–100; BMI 37.5
--- NOTE | ~2024-10-09 | XR_ITS ---
EXAMINATION: XR PELVIS CLINICAL INFORMATION: rt pita COMPARISON: October 04, 2024 TECHNIQUE: AP view of the pelvis. FINDINGS: Since prior examination, total hip arthroplasty has been performed on the right. Acetabular cup is secured with 2 screws. Femoral stem makes broad cortical contact. No fracture is identified. No other changes are evident. XR/XR pelvis 1-2V IMPRESSION: Recent total hip arthroplasty on the right. Electronically signed by: Jr Cheung MD 10/09/2024 02:40 PM EDT
[2024-10-09] MEDS: Lactated Ringers 1,000 ML 100 ML IVCONT ×2 (09:19→16:29)
--- NOTE | 2024-10-09 10:55 | MHC.SHP ---
Pre-Procedural Eval Section A - 24 Hr Update-Section A only Date of Service: 10/09/24 The patient is an INPATIENT: No Changes since office visit: No Cold of Flu in the past 2 weeks, No New Medical Problems, No Changes in Medication and No Patient answered all questions The patient has been examined within 24 hours of the surgical procedure. The History & Physical has been completed within 30 days and I have reviewed it.: Yes Section B - Complete if H&P > 30 days Chief Complaint: Unilateral primary osteoarthritis, right hip Allergies: Allergies Allergy/AdvReac Type Severity Reaction Status Date / Time [id number] Reductase Allergy Severe joint Verified 10/04/24 11:36 Inhibitor pain, stiffness, muscle aches atorvastatin AdvReac Severe Palpitation Verified 10/04/24 11:36 s ezetimibe AdvReac Severe Palpitation Verified 10/04/24 11:36 s Plan I have reviewed the history and physical and performed a pertinent physical examination on my patient. No changes have occurred unless specified. Time Spent With Patient Time: Total time managing care of this patient today ____ minutes.
--- NOTE | 2024-10-09 14:16 | PM.OP ---
Brief Operative Note Date of Service: 10/09/24 Pre-op diagnosis: Right hip OA Post-op diagnosis: same Procedure: Right GOPAL Implants: Danielle: Trident2 50/ 6.5 acetabular screws x 2 Accolade2 #4 132/ -2.5 36 ceramic Surgeon: Genaro Frazier MD Anesthesia: GETA and local Was an Hand Spring Repairer used for this Procedure?: Yes Hand Spring Repairer: Kim Thomas Estimated blood loss (mL): 200 IV fluids (mL): 800 Pathology: other Condition: stable Disposition: PACU
[2024-10-09] MEDS: 0.9 % Sodium Chloride Flush 3 ML SYRINGE IVFLUSH (16:29)
--- NOTE | 2024-10-09 17:28 | PC.NURSE ---
Pt was able to stand pivot to BSC, with 2A and walker, tolerated well, was able to void 100ml.
--- NOTE | 2024-10-09 17:42 | PHA.MEDREC ---
Addendum entered by Ladarius Real, [facility] 10/09/24 18:00: med rec reviewed Original Note: Pharmacy Consult ? Medication Reconciliation Pharmacy has completed the medication reconciliation. Spoke with pt and she confirmed her medications. Pt confirmed her Bupropion dosage changed in the last month and states it decreased from 300mg to 150mg; in claims it looks like it increased, pt got 150mg 06/26 for 90 days and 300mg 09/09 for 90 days.
--- NOTE | 2024-10-09 18:11 | P.DS_ITS ---
DS: Providers Provider Date of Service: 10/09/24 <GraceLudivinalarry Thomas PA-C - Last Filed: 10/09/24 18:12> Date of discharge: 10/10/24 <Kim UriarteJEET conrad - Last Filed: 10/09/24 18:12> Primary care physician: HEATHER Martin-SATYA <GraceLudivinalarry Thomas PA-C - Last Filed: 10/09/24 18:12> Consults: 10/09/24 15:57 Consult to Hospitalist Routine Comment: Consulting Provider: [facility] [place] Hospital[place] Reason For Exam: medical management <MilesJEET Macdonald Last Filed: 10/09/24 18:12> DS: Diagnosis Discharge Diagnosis (1) History of total right hip replacement: Status: Acute <MilesJEET Macdonald Last Filed: 10/09/24 18:12> DS: Summary Hospital Course Hospital Course: The patient underwent a successful right total hip arthroplasty on , was transferred to PACU and then to the floor to recover. During their stay, their vitals were stable, afebrile at 97.3. Labs were unremarkable, H/H 11.6/34.1. POD 1 she was started on ASA 325mg tabs po bid for DVT ppx, they also received Physical Therapy services twice a day. Physical therapy should include gait training, core and lumbar strength, glute strength. Posterior precautions intact. WBAT. Prior to discharge, her dressing was clean dry and intact, new Aquacel dressing applied. The Aquacel dressing should remain intact and dry at all times. Any concerns with the dressing, please contact orthopedic office. No showering. The plan is to be discharged <AlexandreBillyJEET Cruz Last Filed: 10/09/24 18:12> Time Attestation Discharge Coordination Time (in mins): 30 <JEET Pacheco Last Filed: 10/10/24 10:26> Quality: Safe Use of Opioids Does Pt have an Active Cancer Diagnosis on the Problem List?: No <JEET Pacheco Last Filed: 10/10/24 10:26> Quality: Stroke Does the patient have a stroke diagnosis?: No <THEO PachecoC - Last Filed: 10/10/24 10:26> Physical Exam Vital Signs: Vital Signs: Last Vital Signs Temp 97.3 F 10/09/24 16:01 Pulse 67 10/09/24 16:01 Resp 16 10/09/24 16:01 BP 116/60 10/09/24 16:01 Pulse Ox 96 10/09/24 16:01 O2 Del Method Nasal Cannula 10/09/24 16:01 O2 Flow Rate 2 10/09/24 16:01 BMI result Body Mass Index 37.5 <Kim Thomas PA-C - Last Filed: 10/09/24 18:12> Const: General: cooperative, healthy appearing and no acute distress <THEO PachecoC - Last Filed: 10/10/24 10:26> Resp: Effort & Inspection: normal respiratory effort and able to speak in complete sentences <THEO PachecoC - Last Filed: 10/10/24 10:26> Cardio: Rate: regular rate <THEO PachecoC - Last Filed: 10/10/24 10:26> Peripheral pulses: Peripheral pulses 2+ throughout <THEO PachecoC - Last Filed: 10/10/24 10:26> GI: Palpation (GI): Soft to palpation <ADELAIDA Pacheco-C - Last Filed: 10/10/24 10:26> Skin: Lesions: no lesions <THEO PachecoC - Last Filed: 10/10/24 10:26> Rashes: no rashes <THEO PachecoC - Last Filed: 10/10/24 10:26> Extrem: Other: rt hip dressing is c/d/i. Able to dorsi/plantar flex. Calf is supple and nontender. Sensation intact. Pedal pulse intact. <THEO PachecoC - Last Filed: 10/10/24 10:26> DS: Data Data Completed and Pending Pending studies at discharge: Pending at discharge 10/09/24 13:33 Surgical [PTH] Routine <Kim Thomas PA-C - Last Filed: 10/09/24 18:12> Discharge Plan Discharge Patient Disposition: Home Health Service <Kim Thomas PA-C - Last Filed: 10/09/24 18:12> Referrals: Kim Thomas PA-C [Physician Patient Support Assistant, Orthopedics] - 1 Week Referral Note: 10/25/24 10:15 [facility] [place] Orthopedic Surgeons Kim Thomas PA-C <Kim Thomas PA-C - Last Filed: 10/09/24 18:12> Discharge Medications: New celecoxib 200 mg Capsule 200 mg PO BID 30 Days Qty: 60 0RF acetaminophen 325 mg Tablet 650 mg PO Q6H PRN (Reason: Pain, Mild 1-3,Fever,Headache) 30 Days Qty: 240 0RF aspirin 325 mg Tablet 325 mg PO BID 42 Days Qty: 84 0RF docusate sodium 100 mg Capsule 100 mg PO BID 14 Days Qty: 28 0RF oxycodone 5 mg Tablet 5 mg PO Q4H PRN (Reason: Pain, Moderate(Pain Scale 4-6)) 7 Days Qty: 42 0RF Rx Instructions: Partial Fill upon patient request. Continued (DME) [place]er [facility] See Rx Instructions .MEDSUPPLY Qty: 1 0RF Rx Instructions: Rollator walker with seat and brakes olmesartan 5 mg tablet 5 mg PO DAILY Qty: 90 1RF (DME) 3 in 1 commode See Rx Instructions .ROUTE .MEDSUPPLY Qty: 1 0RF Rx Instructions: DURATION : LIFETIME (DME) Folding Front Wheeled walker See Rx Instructions .ROUTE .MEDSUPPLY Qty: 1 0RF Rx Instructions: Duration: 99 days (DME) SHOWER CHAIR See Rx Instructions .ROUTE .MEDSUPPLY Qty: 1 0RF Rx Instructions: DURATION: LIFETIME levothyroxine 137 mcg tablet 137 mcg PO DAILY@0600 bupropion HCl 300 mg tablet extended release 24 hr 300 mg PO DAILY cholecalciferol (vitamin D3) 50 mcg (2,000 unit) capsule 50 mcg PO DAILY 90 Days Qty: 90 2RF Discontinued acetaminophen [Tylenol 8 Hour] 650 mg Tablet Extended Release 1,300 mg PO Q8H PRN (Reason: Pain) <Kim Thomas PA-C - Last Filed: 10/09/24 18:12> Discharge Orders: Discharge Order (Routine); Ordered 10/10/24 Ordered By: Liseth Buitrago <Kim Thomas PA-C - Last Filed: 10/09/24 18:12> Diet: Regular diet <Kim Thomas PA-C - Last Filed: 10/09/24 18:12> Regular diet <Liseth Buitrago PA-C - Last Filed: 10/10/24 10:26> Activity on Discharge: Use cane or walker <Kim Thomas PA-C - Last Filed: 10/09/24 18:12> Use cane or walker <Liseth Buitrago PA-C - Last Filed: 10/10/24 10:26> Activity Restrictions/Additional Instructions: * Physical Therapy for Total hip arthroplasty: wbat, posterior precautions, gait training, ROM, strength * Limit stair climbing * No showering, no tub bath-keep dressing clean, dry and intact * No driving x6 weeks * Continue Aspirin twice a day x 6 weeks * Follow up with [facility] [place] Orthopedics in 2 weeks: <JEET Marina Last Filed: 10/09/24 18:12> Print Language: Iranian <Kim Thomas PA-C - Last Filed: 10/09/24 18:12>
--- NOTE | 2024-10-09 18:12 | P.F2F_ITS ---
Service Date Service Date: 10/09/24 Encounter Date of encounter: 10/10/24 Reasons for Services Signs and symptoms assessed: Weakness, poor balance, poor gait mechanics Reason for physical therapy: home safety and mobility, therapeutic exercises, restore joint function, gait/transfer training, ADL training and energy conservation Reason for occupational therapy: home safety and mobility, therapeutic exercises, restore joint function, gait/transfer training, ADL training and energy conservation Overseeing Care: Genaro Frazier Homebound: Leaving the home is medically contraindicated at this time without the asist of a device and/or another person due th the listed conditions above and below. Reason homebound: unsteady gait / fall risk, pain with ambulation, poor balance / fall risk and unable to drive Homebound supporting statement: Pt. is considered home bound due to recent surgery. Unable to drive, poor balance, poor gait mechanics. Certification: Based on the above findings, I certify that this patient is confined to the home and needs intermittent nursing home care, physical therapy and/or speech therapy, or continues to need occupational therapy. The patient is under my care, and I have initiated the establishment of the plan of care. The patient will be followed by a physician who will periodically review the plan of care. Time Spent With Patient Time: Total time managing care of this patient today ____ minutes.
--- NOTE | 2024-10-09 19:07 | HO.PM.IMCN ---
History of Present Illness Data of Consult Service Date: 10/09/24 Requesting physician: Kim Thomas Primary Care Provider: KIMBERLY Martin HPI Reason for consult: Medical management Patient is a 64-year-old female with past medical history chronic kidney disease baseline creatinine 1.08, GERD, gallstones, hypothyroidism, tobacco dependence 1 pack per day, vitamin-D deficiency, Osteo P nausea, fibroid uterine mass, hyperlipidemia, hypertension, MDD, PTSD is being seen status post right hip replacement for medical management as requested by orthopedic surgeon. Patient is hemodynamically stable status post hip replacement. Patient has been out of bed at least once with the assistance using walker to use the bathroom without pain or complications. Currently after reviewing patient's medical history, patient's only concern is that marijuana be removed from her medical problem list as she no longer uses marijuana and has not had any in the last 2 years. Patient is aware of the negative side effects of smoking and has attempted to quit in the past. Patient defers need for NRT at this time. Patient states she is not able to tolerate statins due to chronic history of myalgias. Patient is working with her PCP on alternative treatments and is monitoring her lipid panel closely. Patient does see a therapist for her depression and PTSD and denies having any significant symptoms including anxiety, depression, or suicidal ideations. Patient is monitoring her gallstone issues with her PCP and plans to have referrals to GI and/or surgery as needed. Patient is currently asymptomatic at this time. Review of Systems Review of Systems: Patient currently denies any chest pain or shortness breath at rest. Patient denies any abdominal pain, nausea or vomiting. Patient is not having any chills or fever. Patient is not having any increased pain status post hip repair and has been able to ambulate at least once since the surgery with a cyst. Yes all other systems are reviewed and are negative [facility] Medical History (Updated 10/09/24 @ 22:49 by Nelida Reyes [facility]) Uterine myoma Osteoarthritis Acid reflux Depression CKD (chronic kidney disease) Screening for cervical cancer Screening for colon cancer Well woman exam Osteopenia Right rotator cuff tear PTSD (post-traumatic stress disorder) Borderline high cholesterol Hypertension Hypothyroidism Cognitive capacity: Alert and orientated x3 Functional capacity: independent ambulation (Prior to hip replacement) Patient : No Family History Other Mental health disorder Surgical History Hx of eye surgery (~12/2022) History of wisdom tooth extraction H/O rotator cuff surgery (~2014) H/O left knee surgery Social History (Updated 10/09/24 @ 22:47 by KIMBERLY Gann) Household Members: None Housing: Apartment Are you a primary occasional caregiver to a significant other at home: No Do you presently have visiting nurse or other home services: Yes Patient Tobacco Use Status: Current everyday Tobacco user Tobacco use type: Cigarette Cigarettes Per Day: 15 e-Cigarette/Vaping Use: Never Used service: No Current occupational status: retired Cognitive needs: No Hearing needs: No Vision needs: Yes Ebola Risk: Travel/Contact With Anyone From Affected Area/s: No Has Patient Experienced Ebola Symptoms: No Meds Allergies Allergy/AdvReac Type Severity Reaction Status Date / Time [id number]-[id number] Reductase Allergy Severe joint Verified 10/04/24 11:36 Inhibitor pain, stiffness, muscle aches atorvastatin AdvReac Severe Palpitation Verified 10/04/24 11:36 s ezetimibe AdvReac Severe Palpitation Verified 10/04/24 11:36 s Active Medications: Current Medications Acetaminophen (Acetaminophen 325 Mg Tablet) 650 mg PO Q6H PRN PRN Reason: Pain, Mild 1-3,fever,headache Aspirin (Aspirin 325 Mg Tablet) 325 mg PO BID BRAEDEN Celecoxib (Celecoxib 200 Mg Capsule) 200 mg PO BID BRAEDEN Docusate Sodium (Docusate Sodium 100 Mg Capsule) 100 mg PO BID BRAEDEN Famotidine (Famotidine 20 Mg Tablet) 20 mg PO DAILY PRN PRN Reason: Acid Reflux Hydromorphone HCl (Hydromorphone Hcl 0.5 Mg/0.5 Ml Syringe) 0.25 mg IVPUSH Q4H PRN; Protocol PRN Reason: Pain, Severe (Pain Scale 7-10) Last Admin: 10/09/24 16:30 Dose: 0.25 mg Lactated Ringer's (Lr) 1,000 mls @ 100 mls/hr IVCONT .Q10H BRAEDEN Stop: 10/10/24 08:00 Last Admin: 10/09/24 16:29 Dose: 100 mls/hr Levothyroxine Sodium 112 mcg/ (Levothyroxine Sodium 25 mcg) 137 mcg PO DAILY@0600 [facility] Ondansetron HCl (Ondansetron Hcl 4 Mg/2 Ml Vial) 4 mg IVPUSH Q8H PRN PRN Reason: Nausea and Vomiting Oxycodone HCl (Oxycodone Hcl Immed Release 5 Mg Tablet) 5 mg PO Q4H PRN PRN Reason: Pain, Moderate(Pain Scale 4-6) Oxycodone HCl (Oxycodone Hcl Er 10 Mg Tab.Er.12h) 10 mg PO BID [facility] Sodium Chloride (0.9 % Sodium Chloride Flush 3 Ml Syringe) 3 ml IVFLUSH QSHIFT [facility] Last Admin: 10/09/24 16:29 Dose: 3 ml Home Medications ?Medication ?Instructions ?Recorded ?Confirmed ?Last Taken ?Type bupropion HCl 300 mg 24 hr tablet, 300 mg PO DAILY 10/09/24 10/09/24 10/09/24 History extended release levothyroxine 137 mcg tablet 137 mcg PO DAILY@0600 10/09/24 10/09/24 10/09/24 History Physical Exam Vital Signs and Narrative: Vital Signs: Last Vital Signs Temp 97.8 F 10/09/24 18:57 Pulse 93 10/09/24 18:57 Resp 18 10/09/24 18:57 BP 108/66 10/09/24 18:57 Pulse Ox 95 10/09/24 18:57 O2 Del Method Room Air 10/09/24 18:57 O2 Flow Rate 2 10/09/24 16:01 BMI result Body Mass Index 37.5 Alert and orientated X3, able to give good history. Neuro: CN II-X11 intact, no deficits, visual acuity intact EYES: PERRLA, EOM intact, sclerae nonicteric ENT: hearing intact, no issues with swallowing, uvula midline, lips moist, nares patent no epistaxis Cardiac: S1 S2 RRR, no murmur, no JVD, no edema in Lower ext Pulmonary: lungs clear to auscultation B Abdominal: BS active in all 4 quadrants, no guarding, tenderness, rebounding MSK: strength 5/5 upper and Llower extremities, unable to assess strength in the right lower extremity : no CVA tenderness no bladder distension Extremities: no edema in lower extremities, PT and DP pulses palpable +2 Psych: mood stable, judgement and insight good Skin: Surgical dressing right hip clean and intact Results Labs 10/04/24 12:16 10/04/24 12:16 ECG Prior ECG tracings: not available for review Imaging Radiologist's Impressions: Impressions Pelvis X-Ray 10/09/24 14:30 IMPRESSION: Recent total hip arthroplasty on the right. Electronically signed by: Jr Cheung MD 10/09/2024 02:40 PM EDT RP Assessment and Plan (1) Hypertension: Qualifiers: Hypertension type: primary hypertension Qualified Code(s): I10 - Essential (primary) hypertension Status: Acute Plan Patient is a 64-year-old female with past medical history chronic kidney disease baseline creatinine 1.08, GERD, gallstones, hypothyroidism, tobacco dependence 1 pack per day, vitamin-D deficiency, Osteo P nausea, fibroid uterine mass, hyperlipidemia, hypertension, MDD, PTSD is being seen status post right hip replacement for medical management as requested by orthopedic surgeon. Patient offers no specific medical concerns at this time. Status post right hip replacement Management per Orthopedics Pain well controlled Incentive spirometry Hypothyroidism Continue levothyroxine, take 30 minutes before eating in the a.m. Hypertension Continue Arb as blood pressure is currently stable Hyperlipidemia Patient can not tolerate statins due to myalgias Patient monitored closely by her PCP and follows a low-fat diet MDD/PTSD Patient follows with a therapist in the community Patient reports symptoms are controlled and is coping well with this recent surgery Tobacco dependence Patient counseled on the benefits of continued smoking cessation Patient has been smoking at least 1 pack per day and has tried to quit in the past Patient defers need for nicotine patch at this time or at discharge as nicotine patch promote bad dreams Uterine fibroid Patient follows with her flight steward as an outpatient and there are no plans for surgical intervention as patient remains asymptomatic We appreciate this consultation and as there are no current medical concerns, hospitalist group will sign off at this time. Please reconsult with any concerns or questions as needed thank you!
[2024-10-09] MEDS: oxyCODONE HCl ER 10 MG TAB.ER.12H PO (20:51)
[2024-10-09] MEDS: oxyCODONE HCl Immed Release 5 MG TABLET PO (20:53)
[2024-10-10] MEDS: Lactated Ringers 1,000 ML 100 ML IVCONT (01:36)
[2024-10-10 04:00] VITALS: BP 111/56; PULSE 82; RESP 18; TEMP 36.3; O2SAT 95
[2024-10-10] MEDS: Levothyroxine Sodium 112 MCG, Levothyroxine Sodium 25 MCG 137 MCG PO (05:59)
[2024-10-10 07:22] LABS: MANUAL DIFF FLAG NO
[2024-10-10 07:27] LABS: Hematocrit 34.1 % (37.0-47.0); Hemoglobin 11.6 g/dl (12.0-16.0); Imm Gran Abs Auto 0.15 X10*3/uL (0.00-0.03); Imm Gran Pct Auto 0.9 % (0.0-0.4); Lymphocytes Absolute Auto 1.0 X10*3/uL (1.2-4.9); Mean Corpuscular HGB Conc 34.0 g/dl (31.0-35.0); Mean Corpuscular Hemoglobin 29.1 pg (27.0-33.0); Mean Corpuscular Volume 85.7 fL (80.0-98.0); NRBC Abs Auto 0.000 X10*3/uL (0.0-0.012); NRBC Pct Auto 0.0 /100WBC (0.0-0.2); Platelet Count 293 X10*3/uL (160-400); Red Blood Count 3.98 X10*6/uL (4.20-5.50); White Blood Count 17.5 X10*3/uL (4.8-10.8)
[2024-10-10 07:39] LABS: Anion Gap 13 (12-20); Blood Urea Nitrogen 19 mg/dL (9-16); Calcium 8.6 mg/dL (8.4-10.2); Carbon Dioxide 21 mmol/L (22-29); Chloride 109 mmol/L (96-108); Creatinine Clr Calc Pharmacy 57.8; Estimated Glomerular Filt Rate 54; Potassium 4.8 mmol/L (3.3-5.1); Sodium 138 mmol/L (135-145)
[2024-10-10 07:44] VITALS: BP 113/71; PULSE 81; RESP 16; TEMP 36.2; O2SAT 95
--- NOTE | 2024-10-10 07:50 | PM.PNORT ---
Subjective Subjective Date of Service: 10/10/24 Interval history: POD1 s/p RTHA Patient is resting in bed comfortably No overnight events Pain is managed No additional complaints Physical Exam Vital Signs: Vital Signs: Last Vital Signs Temp 97.1 F 10/10/24 07:44 Pulse 81 10/10/24 07:44 Resp 16 10/10/24 07:44 BP 113/71 10/10/24 07:44 Pulse Ox 95 10/10/24 07:44 O2 Del Method Room Air 10/10/24 07:44 O2 Flow Rate 2 10/09/24 16:01 BMI result Body Mass Index 37.5 Const: General: cooperative, healthy appearing and no acute distress Resp: Effort & Inspection: normal respiratory effort and able to speak in complete sentences Cardio: Rate: regular rate Peripheral pulses: Peripheral pulses 2+ throughout GI: Palpation (GI): Soft to palpation Skin: Lesions: no lesions Rashes: no rashes Extrem: Other: rt hip dressing is c/d/i. Able to dorsi/plantar flex. Calf is supple and nontender. Sensation intact. Pedal pulse intact. Procedures Date of Service Date of Service: 10/10/24 Progress Note: A&P Assessment and plan (1) Status post total hip replacement, right: Status: Acute Plan Continue pain mgmnt Begin asa for dvt ppx begin PT/OT for RTHA - WBAT, posterior precautions Dispo planning-Pending PT eval, pain mgmnt Time Spent With Patient Time: Total time managing care of this patient today ____ minutes. Quality Stroke Does the patient have a stroke diagnosis?: No VTE Prior VTE?: No VTE Risk Level:: Medical - moderate - high VTE Device Contraindication: N/A - Device Ordered VTE Drug Contraindication: N/A - Med Ordered
[2024-10-10] MEDS: oxyCODONE HCl ER 10 MG TAB.ER.12H PO (08:19)
--- NOTE | 2024-10-10 08:37 | HO.POSTANES ---
Post Anesthesia Evaluation Post Anesthesia Evaluation Date of Service: 10/10/24 Vital Signs: Vital Signs Temp Pulse Resp BP Pulse Ox O2 Del Method 10/10/24 07:44 97.1 F 81 16 113/71 95 Room Air 10/10/24 04:00 97.3 F 82 18 111/56 L 95 Room Air Anesthesia: General Mental Status: Awake Pain Control: Satisfactory Nausea/Vomiting: None Hydration: Adequate Anesthesia-Related Issues: No Anes. Related Issues
--- NOTE | 2024-10-10 10:52 | MHC.CM.PN ---
Patient lives in an apartment alone. Functionally independent. Denies use of DME or services, but has purchased a walker and shower chair to use post op. PCP Grayson Stnoe [employer] C[employer]TER No HCP. CM provided education and offered assistance. Patient declined. DP: Medically cleared for dc home w/ new PT/OT services through [facility]. Friend will stay with her for one week post op to assist PRN. Friend will also transport. RN aware.
[2024-10-10 11:34] VITALS: BP 112/61; PULSE 91; RESP 12; TEMP 36.9; O2SAT 97
--- NOTE | 2024-10-11 07:47 | W.PM.OPN ---
Operative Note Operative Note Date of Service: 10/11/24 Narrative: Date of Service: 10/09/24 Pre-op diagnosis: Right hip OA Post-op diagnosis: same Procedure: Right GOPAL Implants: [place]: Trident2 50/ 6.5 acetabular screws x 2 Accolade2 #4 132/ -2.5 36 ceramic Surgeon: Genaro Frazier MD Anesthesia: GETA and local Was an Battery Tester Field used for this Procedure?: Yes Battery Tester Field: Kim Thomas Estimated blood loss (mL): 200 IV fluids (mL): 800 Pathology: other Condition: stable Disposition: PACU Procedure in detail: Patient was brought into the operating room and placed in the left lateral decubitus position. All bony prominences were well padded and the limb was prepped and draped in standard sterile fashion. A time-out was called to identify proper site procedure proper surgeon IV antibiotics and 1 g of tranexamic acid were administered. I began by making a curvilinear incision over the posterolateral aspect of the greater trochanter. Dissection was taken down to the tensor fascia which was incised in line with the incision and a Charnley retractor was placed. Cautery and a Fastseal wand were used to maintain hemostasis. The hip was internally rotated and the external rotators were identified. The vessels were cauterized and a full-thickness capsular/external rotator layer was developed starting just proximal to the piriformis. This layer was tagged and a dull Hohmann retractor was placed underneath the neck in the hip was dislocated. The posterior soft tissues were protected at all times iwth a blunt retractor. A neck cut was made approximately 1 cm proximal to the lesser trochanter and the head and neck were removed and measured 45 mm on the back table. The head was eburnated. I then removed the labrum and cauterized the fovea. I started with a 44 reamer and medialized to the inner table. I sequentially reamed up to a size 50 and impacted a 50mm cup at 45 degrees of inclination and 25 degrees of version. I placed two 6.5 mm acetabular screws into the superior safe zone using standard AO technique. I then placed a liner and turned my attention to the femur. I identified the piriformis insertion and used this as a starting point for my khoiie cutter. The medius tendon was protected with a Hibs retractor. A Charnley awl was inserted in the canal and a curved curette used to remove the lateral bone. I irrigated copiously. I then sequentially broached in the patient's natural version to a size 4 and placed my trial implants. I used a #4/132/+0 based on my pre-operative template. I removed all instrumentation and copiously irrigated. I placed my final femoral implant and again took the hip through range of motion and re-trialed. I was satisfied with the stability and length using a -2.5. The final -2.5 implant was impacted in place and the hip reduced. I then irrigated copiously and placed 1 g of local tranexamic acid. I performed a capsular closure with 2.0 fiberwire, Zack's fascia with 0 Vicryl, subcuticular with 2-0 Vicryl and the skin with jeferson. Patient was placed into a sterile dressing. Patient was extubated brought to the recovery room in stable condition. There were no known complications.
== END 2024-10-10 11:41 | disposition home health service (06) ==
LOC: HO.SSS 08:29 → HO.S3 15:23
PROVIDERS: Physician Assistant; PCP Nurse Practitioner Family; Visit Provider Orthopaedic Surgery
PROC: (CPT 27130; principal; 2024-10-09 12:20)
DX: M16.11 Unilateral primary osteoarthritis, right hip (principal); I12.9 Hypertensive chronic kidney disease with stage 1 through stage 4 chronic kidney disease, or unspecified chronic kidney disease; N18.9 Chronic kidney disease, unspecified; E78.5 Hyperlipidemia, unspecified; E03.9 Hypothyroidism, unspecified; E55.9 Vitamin D deficiency, unspecified; K21.9 Gastro-esophageal reflux disease without esophagitis; D25.9 Leiomyoma of uterus, unspecified; M85.80 Other specified disorders of bone density and structure, unspecified site; F32.9 Major depressive disorder, single episode, unspecified; F43.10 Post-traumatic stress disorder, unspecified; F17.210 Nicotine dependence, cigarettes, uncomplicated; Z79.899 Other long term (current) drug therapy; Z88.8 Allergy status to other drugs, medicaments and biological substances; Z98.890 Other specified postprocedural states
CPT/HCPCS: 27130; 36415; 72170; 80048; 85025; 86850; 86900; 86901; 87640; 87641; 88304; 88311; 97162; 97166; C1713; C1776; J0131; J0690; J1100; J1171; J2003; J2250; J2405; J2704; J2795; J3010; J7120

== ENCOUNTER → 2024-10-09 08:28 | Outpatient (BNV) | payer MEDICARE, SELFPAY | PROVIDERS: PCP Nurse Practitioner Family; Visit Provider Nurse Practitioner Family | DX: I10 Essential (primary) hypertension (principal) | CPT/HCPCS: 99223 ==

== ENCOUNTER → 2024-10-09 08:28 | Outpatient (BNV) | payer MEDICARE, SELFPAY | PROVIDERS: PCP Nurse Practitioner Family; Visit Provider Orthopaedic Surgery | DX: Z47.1 Aftercare following joint replacement surgery (principal); Z96.641 Presence of right artificial hip joint | CPT/HCPCS: 27130; 99024; G0180 ==

== ENCOUNTER → 2024-10-09 14:20 | Outpatient (BNV) | payer MEDICARE, SELFPAY | PROVIDERS: PCP Nurse Practitioner Family; Visit Provider Radiology Diagnostic Radiology | DX: M25.551 Pain in right hip (principal); Z96.641 Presence of right artificial hip joint | CPT/HCPCS: 72170 ==

== ENCOUNTER 2024-10-25 09:53 | Outpatient (AMB) | payer MEDICARE, SELFPAY ==
--- NOTE | 2024-10-25 10:21 | MHC.OFFVIS ---
Intake Visit Reasons: 2WKPO: R GOPAL w/NE 10/09/24 Intake Note: Maddi is a 64 year old female who presents post operatively after undergoing right total hip arthroplasty, DOS 10/09/[address] Frazier. Patient reports she is doing well. She is having very little sorness on her thight but no pain compared to what she was experiencing before surgery. Aqua cell removed. Allergies [place]-AHH-JuW Reductase Inhibitor Allergy (Severe, Verified 10/25/24 10:27) joint pain, stiffness, muscle aches atorvastatin Adverse Reaction (Severe, Verified 10/25/24 10:27) Palpitations ezetimibe Adverse Reaction (Severe, Verified 10/25/24 10:27) Palpitations Medication List - Last Reconciled 10/25/24 by Kim Thomas PA-C [3 in 1 commode DURATION : LIFETIME] acetaminophen 650 mg (2 x 325 mg) PO Q6H PRN 30 days aspirin 325 mg PO BID 42 days bupropion HCl XL 300 mg PO DAILY celecoxib 200 mg PO BID 30 days cholecalciferol (vitamin D3) 50 mcg PO DAILY 90 days docusate sodium 100 mg PO BID 14 days [Folding Front Wheeled walker Duration: 99 days] levothyroxine 137 mcg PO DAILY@0600 olmesartan 5 mg PO DAILY [SHOWER CHAIR DURATION: LIFETIME] walker Rollator walker with seat and brakes HPI HPI 2WKPO: R GOPAL w/NE 10/09/24: Details: 64-year-old female returns to the office today 2 weeks status post right total hip arthroplasty on 10/09/2024. She is working at home with physical therapy and is transitioning into outpatient physical therapy where she will continue range of motion and strengthening exercises. She is ambulating with a cane. [facility] Medical History (Updated 10/12/24 @ 00:01 by Brenda Phillips) Uterine myoma Osteoarthritis Acid reflux Depression CKD (chronic kidney disease) Screening for cervical cancer Screening for colon cancer Well woman exam Osteopenia Right rotator cuff tear PTSD (post-traumatic stress disorder) Borderline high cholesterol Hypertension Hypothyroidism Surgical History Hx of eye surgery (~12/2022) History of wisdom tooth extraction H/O rotator cuff surgery (~2014) H/O left knee surgery Family History Other Mental health disorder Social History Household Members: None Housing: Apartment Are you a primary medical care evaluation specialist to a significant other at home: No Do you presently have visiting nurse or other home services: Yes Patient Tobacco Use Status: Current everyday Tobacco user Tobacco use type: Cigarette Cigarettes Per Day: 15 e-Cigarette/Vaping Use: Never Used service: No Current occupational status: retired Cognitive needs: No Hearing needs: No Vision needs: Yes Review of Systems Const All systems reviewed & are unremarkable except as noted in HPI and below Physical Exam Extrem Other: Right hip incision is clean dry and intact no surrounding erythema or drainage calf is supple and nontender neurovascularly intact. Assessment & Plan Assessment & Plan (1) Status post total hip replacement, right: Code(s): Z96.641 - Presence of right artificial hip joint Category: Surgical Plan: Cam removed today Steri-Strips applied. The patient will transition to outpatient physical therapy and continue working on strengthening exercises along with gait training. She does understand her hip precautions. She does understand she will need antibiotics for dental prophylaxis. She will see us back in 4 weeks follow up sooner if needed. Coding Level of Care Code Global (83327) Diagnoses Status post total hip replacement, right Z96.641
--- OUTSIDE RECORDS SUMMARY | 2024-10-25 11:18 | XMS_ITS | Clinical Summary ---
Author Organization [facility] Address [address] [place] [address] Phone Care Team Providers Care Cushion Sewer Name Role Phone Pcp, Unknown Primary Care [...] State: [place] E&M Billing based on time (11854-33455): Yes Total time spent on date of [...] EST) SODIUM 137 133 - 146 mmol/L [facility] CHLORIDE 102 96 - 108 mmol/L [facility] POTASSIUM 4.7 3.3 - 5.1 mmol/L [facility] CO2 24 21 - 35 mmol/L [facility] BUN 17 6 - 19 mg/dL [facility] CREATININE 1.10 0.5 - 1.5 mg/dL [facility] GLUCOSE 88 70 - 99 mg/dL [facility] CALCIUM 9.9 8.4 - 10.3 mg/dL [facility] EGFR 56(L) >59 mL/min/1.7 3m2 [facility] Comment:Estimated glomerular filtration rate calculated using the CKD-EPI refit equation. ANION GAP 16 10 - 20 mmol/L [facility] Blood 04/01/2022 2:29 PM EST 04/01/2022 2:32 PM EST Sandra Hernandez PA-C LAB BLOOD ORDERABLES Final Result [facility] [address] [place] [address] * (ABNORMAL) TSH (12/18/2021 7:09 AM EDT) TSH 0.20(L) 0.27 - 4.20 uIU/mL [facility] Blood 12/18/2021 7:09 AM EDT 12/18/2021 9:23 AM EDT us Phoebe Neal MD LAB BLOOD ORDERABLES Fin al Result Performing Organization Address [facility] Co de Phone Number [address] [address] * (ABNORMAL) Lipid panel (12/18/2021 7:09 AM EDT) Pathologist [facility] HDL 84 mg/dL [facility] Comment: Interpretation <40 mg/dL: Low HDL cholesterol (major risk factor for CHD) Greater than or equal to 60 mg/dL: High HDL cholesterol ( negative risk factor for CHD) HDL - cholesterol is affected by a number of factors, e.g. smoking, excerise, hormones, sex and age. CHOLESTEROL 233 0 - 240 mg/dL [facility] TRIGLYCERIDES 61 30 - 160 mg/dL [facility] LDL 137(H) 50 - 129 mg/dL [facility] Comment: LDL levels in terms of risk for coronary heart disease: <100 mg/dL: Optimal 100-129 mg/dL: Near or above optimal 130-159 mg/dL: Borderline high 160-189 mg/dL: High >190 mg/dL: Very High CARDIAC RISK RATIO 2.8(L) 3.3 - 4.4 C [facility] Blood 12/18/2021 7:09 AM EDT 12/18/2021 9:19 AM EDT us Phoebe Neal MD LAB BLOOD ORDERABLES Fin al Result Performing Organization Address City/[facility] Co de Phone Number [address] [address] * Hepatitis C antibody, qualitative (04/18/2019 8:43 AM EST) HCV NON-REACTIV E NON-REACTI VE [facility] Blood 04/18/2019 8:43 AM EST 04/18/2019 8:46 AM EST Tito Velasco MD LAB BLOOD ORDERABLES Final Result [facility] [address] [place] [address] from Last 3 Months or Most Recently Relevant to Health Maintenance Insurance [employer] O MEDICARE REPLACEMENT AETNA O MEDICARE REPLACEMENT AETNA PPO MEDICARE REPLACEMENT AETNA PPO MEDICARE REPLACEMENT AET[employer] PPO MEDICARE REPLACEMENT AET[employer] PPO MEDICARE REPLACEMENT Advance Directives For more information, please contact: [phone] (9AM - 5PM [facility], Tuesday-Tuesday) * Full Code (Latest Code Status on File) Date Activated Date Inactivated Comments 04/02/2022 9:29 PM Question Answer Comments Code Status Confirmed With: Patient Code Status Communicated To: Inpatient Attending Care Teams Cushion Sewer Relationship Specialty Start Date End Date Pcp, Unknown PCP - General 05/21/24 Additional Source Comments The information contained in this document represents components of the legal health record. It is not the complete legal health record.[facility]
--- OUTSIDE RECORDS SUMMARY | 2024-10-25 11:18 | XMS_ITS | Clinical Summary ---
Author Organization [facility] Address [address] [place] [address] Care Team Providers Care Assistant Professor Nurse Education Name Role Phone Tito Velasco MD Primary [...] 02/02/2018 Encounter for annual routine gynecological exami [facility] 02/02/2018 Hearing loss 01/05/2018 Overview (04/10/2023): Impression - [id number]: refer to audiology Encounter for preventive health examination 09/04 Tinnitus 06/02/2016 Obesity 03/09/2016 Overview (04/10/2023): Impression - 60Psm7938: has lost 30 lbs intentially over the last year - doing well Hyperlipidemia 03/14/2013 Overview (04/10/2023): Impression - 55Kzq4971: check labs Insomnia 02/14/2012 Overview (04/10/2023): Impression - 01Aar6152: takes ambien prn Obstructive sleep apnea 08/12/2011 Overview (04/10/2023): Impression - 71Hwn0918: symptoms resolved after weight loss Vitamin D deficiency 08/12/2011 Encounter for preventive health examination 05/2009 Benign essential hypertension 10/07/2009 Overview (04/10/2023): Impression - 17Tdb0196: controlled - continue current meds Hypothyroidism 10/07/2009 Overview (04/10/2023): Impression - 81Wtw4517: clinically euthyroid Resolved Problems Problem Noted Date [...] Date and Time utilized. Testing Performed at: [facility], [address] [place] [address], , Distance Learning Coordinator: Mary Jane Haider MD CL#[id number] us Tito Velasco MD LABORATORY Final Result [...] PM EST FASTING: YES Testing Performed at: [facility], [address] [place] [id number], , Distance Learning Coordinator: Mary Jane Haider MD CL#[id number] [place] [facility] Final Re sult PHCT CONVERSIONS * [...] of collection device in vial PHCT CONVERSIONS Staker [employer]ying (Cvx/Vag) BLC,CT(ASCP) CT screening location: [place] [address] PHCT CONVERSIONS COMMENT SEE NOTE PHCT CONVERSIONS [...] PM EST [facility] Testing performed at: 1, [facility], [address] [place] [address], [address], [place], [address], Distance Learning Coordinator: Shorty Marroquin MD [facility] Collection Date/Time: [id number] [facility] Results Received Date/Time: [id number] [facility] Reported Date/Time: [id number] [place] APRN PATHOLOGY-INTERFACED Fin al Result Performing Organization Address City/[facility]/ZIP Co de Phone Number PHCT CONVERSIONS from Last 3 Months or Most Recently Relevant to Health Maintenance Care Teams Assistant Professor Nurse Education Relationship Specialty Start Date End Date Tito Velasco MD PCP - General 10/11/22 Tito Velasco MD PCP - Backup PCP Internal Medicine 04/07/23
--- OUTSIDE RECORDS SUMMARY | 2024-10-25 11:18 | XMS_ITS | Clinical Summary ---
Author Organization [facility] Address [address] [place] [address] Care Team Providers Care Steak Sauce Maker Name Role Phone Tito Velasco MD Primary Care Provider [phone] Allergies No known active allergies Social History [...] topic Insurance MEDICARE PART A & B [facility] Care Teams Steak Sauce Maker Relationship Specialty Start Date End Date Tito Velasco MD PCP - General Internal Medicine 01/27/16
--- OUTSIDE RECORDS SUMMARY | 2024-10-25 11:18 | XMS_ITS | Encounter Summary ---
Author Organization [facility] Care Team Providers Care Manager Cardiac Name Role Phone Tito Velasco MD Primary Care Provider [phone] Encounter Details Date Type Department Care Team (Late st Contact Info) Description 08/01/2015 Abstract [facility] [place] [address] [place] [address] Provider, Historical . Social History Tobacco Use [...] filedocumented in this encounter Care Teams Manager Cardiac Relationship Specialty Start Date End Date Tito Velasco MD PCP - General Internal Medicine 12/07/16 documented as of this encounter
== END 2024-10-25 11:40 | disposition home or self-care (01) ==
LOC: HO.HOS 09:54
PROVIDERS: PCP Nurse Practitioner Family; Visit Provider Physician Assistant
DX: Z96.641 Presence of right artificial hip joint (principal)
CPT/HCPCS: 99024

== ENCOUNTER → 2024-10-25 09:53 | Outpatient (BNVA) | payer MEDICARE, SELFPAY | PROVIDERS: PCP Nurse Practitioner Family; Visit Provider Physician Assistant | DX: Z96.641 Presence of right artificial hip joint (principal); Z98.890 Other specified postprocedural states | CPT/HCPCS: 99212 ==

== ENCOUNTER 2024-11-15 14:07 | Outpatient (REF) | payer MEDICARE, SELFPAY ==
--- NOTE | ~2024-11-15 | XR_ITS ---
EXAMINATION: XR PELVIS 1-2 VIEWS, XR HIP 1 VIEW RIGHT HISTORY: M25.559 - Pain in unspecified hip COMPARISON: Comparison is made with the prior examination dated 10/09/2024. FINDINGS: Two AP views of the pelvis and an additional view of the right hip are submitted. The patient is status post right total hip arthroplasty. The orthopedic elements are in anatomic alignment. There is no radiographic evidence of loosening. There is no fracture or dislocation. The left hip joint space is preserved. There is degenerative disc disease of the lower lumbar spine. XR/XR pelvis 1-2V IMPRESSION: Status post right total hip arthroplasty. Electronically signed by: Ibrahima Medina MD 11/15/2024 02:38 PM EDT
--- NOTE | ~2024-11-15 | XR_ITS ---
EXAMINATION: XR PELVIS 1-2 VIEWS, XR HIP 1 VIEW RIGHT HISTORY: M25.559 - Pain in unspecified hip COMPARISON: Comparison is made with the prior examination dated 10/09/2024. FINDINGS: Two AP views of the pelvis and an additional view of the right hip are submitted. The patient is status post right total hip arthroplasty. The orthopedic elements are in anatomic alignment. There is no radiographic evidence of loosening. There is no fracture or dislocation. The left hip joint space is preserved. There is degenerative disc disease of the lower lumbar spine. XR/XR hip RT 1V IMPRESSION: Status post right total hip arthroplasty. Electronically signed by: Ibrahima Medina MD 11/15/2024 02:38 PM EDT
--- OUTSIDE RECORDS SUMMARY | 2024-11-15 17:55 | XMS_ITS | Clinical Summary ---
Author Organization [facility] Address [address] [place] [address] Care Team Providers Care Asw Specialist Name Role Phone Tito Velasco MD Primary [...] Encounter for annual routine gynecological exami [facility] [place] 02/02/2018 Hearing loss 01/05/2018 Overview (04/10/2023): Impression - 35Kxt5542: refer to audiology Encounter for preventive health examination 09/04 Tinnitus 06/02/2016 Obesity 03/09/2016 Overview (04/10/2023): Impression - 39Bea5770: has lost 30 lbs intentially over the last year - doing well Hyperlipidemia 03/14/2013 Overview (04/10/2023): Impression - 91Ipt0575: check labs Insomnia 02/14/2012 Overview (04/10/2023): Impression - 04Gol3145: takes ambien prn Obstructive sleep apnea 08/12/2011 Overview (04/10/2023): Impression - 36Ovw8237: symptoms resolved after weight loss Vitamin D deficiency 08/12/2011 Encounter for preventive health examination 05/2009 Benign essential hypertension 10/07/2009 Overview (04/10/2023): Impression - 18Wan4901: controlled - continue current meds Hypothyroidism 10/07/2009 Overview (04/10/2023): Impression - 38Fro4518: clinically euthyroid Resolved Problems Problem Noted Date [...] 2009 Zoster (Shingrix) (1 of 2) 2009 Bone Density 2024 COVID-19 Vaccine (3 - 2024- season) 2024 06/20/2020, 05/29/2020 Influenza (#1) 2024 12/04/2020, 12/05, 04/23/2019, Additional [...] Date and Time utilized. Testing Performed at: [facility], [address] [place] [address], , Clinical Review Nurse: Mary Jane Haider MD CL#[id number] us Tito Velasco MD LABORATORY Final Result [...] PM EST FASTING: YES Testing Performed at: [facility], [address] [place] [address], , Clinical Review Nurse: Mary Jane Haider MD CL#[id number] [place] [facility] Final Re sult PHCT CONVERSIONS [...] of collection device in vial PHCT CONVERSIONS Signal Mechanic (Cvx/Vag) BLC,CT(ASCP) CT screening location: [place] [address] PHCT CONVERSIONS COMMENT SEE NOTE PHCT CONVERSIONS [...] PM EST [facility] Testing performed at: 1, [facility], [address] [place] [address], [address], [place], [address], Clinical Review Nurse: Shorty Marroquin MD [facility] Collection Date/Time: [id number] [facility] Results Received Date/Time: [id number] [facility] Reported Date/Time: [id number] [place] APRN PATHOLOGY-INTERFACED Fin al Result Performing Organization Address City/[facility]/ZIP Co de Phone Number PHCT CONVERSIONS from Last 3 Months or Most Recently Relevant to Health Maintenance Care Teams Asw Specialist Relationship Specialty Start Date End Date Tito Velasco MD PCP - General 10/11/22 Tito Velasco MD PCP - Backup PCP Internal Medicine 04/07/23
--- OUTSIDE RECORDS SUMMARY | 2024-11-15 17:55 | XMS_ITS | Clinical Summary ---
Author Organization [facility] Address [address] [place] [address] Care Team Providers Care Cash Room Clerk Name Role Phone Tito Velasco MD Primary Care Provider [phone] Allergies No known active allergies Social History [...] Health Maintenance Due Date Last Done Comments Advance Care Planning 1959 Hepatitis C Virus Screening 1959 HIV Screening 1972 DTaP/Tdap/Td Vaccines (1 - Tdap) 1978 Pap Smear (Ages 21-65) 1980 Mammogram 1999 Colonoscopy 2004 Pneumococcal Vaccines 50+ (1 of 1 - PCV) 2009 Zoster (Shingles) Vaccine (1 of 2) 2009 DXA Bone Density (Females,Ag es 65 and older) 2024 Influenza Vaccine 10/05/2024 COVID-19 Vaccine ( - 2023-2 5 season) 2024 RSV Vaccine 60 years and old er and Patients (1 - 1-dose 75+ series) 2034 Hepatitis B Vaccines Aged Out No long er eligible based on patient's age to complete this topic Insurance MEDICARE PART A & B [facility] Care Teams Cash Room Clerk Relationship Specialty Start Date End Date Tito Velasco MD PCP - General Internal Medicine 01/27/16
--- OUTSIDE RECORDS SUMMARY | 2024-11-15 17:55 | XMS_ITS | Encounter Summary ---
Author Organization [facility] Care Team Providers Care Medical Detail Representative Name Role Phone Tito Velasco MD Primary Care Provider [phone] Encounter Details Date Type Department Care Team (Late st Contact Info) Description 08/01/2015 Abstract [facility] [place] [address], [address] [place] [address] Provider, Historical . Social History Tobacco Use [...] on filedocumented in this encounter Care Teams Medical Detail Representative Relationship Specialty Start Date End Date Tito Velasco MD PCP - General Internal Medicine 12/07/16 documented as of this encounter
--- OUTSIDE RECORDS SUMMARY | 2024-11-15 17:55 | XMS_ITS | Clinical Summary ---
Author Organization [facility] Address [address] [place] [phone] Phone Care Team Providers Care Police [employer] Program Coordinator Name Role Phone Pcp, Unknown Primary Care [...] State: [place] E&M Billing based on time ([id number]): Yes Total time spent on date of [...] Date Smoking Tobacco: Every Day Cigarettes 0.5 47 Started: 11/13/1977 Smokeless Tobacco: Never Tobacco Cessation:Ready [...] your housing situation today? I have velia sing 11/10/2021 How many times have you move [...] 04/01/2023 04/01/2022, 12/05, 07/01/2020, Additional history exists OSTEOPOROSIS SCREENING INITIAL (ONE-TIME) 2024 INFLUENZA VACCINE (#1) 2024 11/11/2021, 2019 COVID-19 VACCINE ( season) 2024 01/18/2022, 03/09/2021, 06/20/2020, Additional history exists SCREENING FOR DIABETES 04/01/2025 04/01/2022, 2021 LIPID [...] EST) SODIUM 137 133 - 146 mmol/L [facility] CHLORIDE 102 96 - 108 mmol/L [facility] POTASSIUM 4.7 3.3 - 5.1 mmol/L [facility] CO2 24 21 - 35 mmol/L [facility] BUN 17 6 - 19 mg/dL [facility] CREATININE 1.10 0.5 - 1.5 mg/dL [facility] GLUCOSE 88 70 - 99 mg/dL [facility] CALCIUM 9.9 8.4 - 10.3 mg/dL [facility] EGFR 56(L) >59 mL/min/1.7 3m2 [facility] Comment:Estimated glomerular filtration rate calculated using the CKD-EPI refit equation. ANION GAP 16 10 - 20 mmol/L [facility] Blood 04/01/2022 2:29 PM EST 04/01/2022 2:32 PM EST Sandra Hernandez PA-C LAB BLOOD ORDERABLES Final Result [address] [address] * (ABNORMAL) TSH (12/18/2021 7:09 AM EDT) TSH 0.20(L) 0.27 - 4.20 uIU/mL [facility] Blood 12/18/2021 7:09 AM EDT 12/18/2021 9:23 AM EDT Phoebe Neal MD LAB BLOOD ORDERABLES Fin al Result Performing Organization Address [facility]/ZIP Co de Phone Number [address] [address] * (ABNORMAL) Lipid panel (12/18/2021 7:09 AM EDT) HDL 84 mg/dL [facility] Comment: Interpretation <40 mg/dL: Low HDL cholesterol (major risk factor for CHD) Greater than or equal to 60 mg/dL: High HDL cholesterol ( negative risk factor for CHD) HDL - cholesterol is affected by a number of factors, e.g. smoking, excerise, hormones, sex and age. CHOLESTEROL 233 0 - 240 mg/dL [facility] TRIGLYCERIDES 61 30 - 160 mg/dL [facility] LDL 137(H) 50 - 129 mg/dL [facility] Comment: LDL levels in terms of risk for coronary heart disease: <100 mg/dL: Optimal 100-129 mg/dL: Near or above optimal 130-159 mg/dL: Borderline high 160-189 mg/dL: High >190 mg/dL: Very High CARDIAC RISK RATIO 2.8(L) 3.3 - 4.4 [facility] Blood 12/18/2021 7:09 AM EDT 12/18/2021 9:19 AM EDT us Phoebe Neal MD LAB BLOOD ORDERABLES Fin al Result Performing Organization Address City/[facility]/ZIP Co de Phone Number [address] [address] * Hepatitis C antibody, qualitative (04/18/2019 8:43 AM EST) HCV NON-REACTIV E NON-REACTI VE [facility] Blood 04/18/2019 8:43 AM EST 04/18/2019 8:46 AM EST Tito Velasco MD LAB BLOOD ORDERABLES Final Result [address] [address] from Last 3 Months or Most Recently Relevant to Health Maintenance Insurance AETNA O MEDICARE REPLACEMENT AETNA O MEDICARE REPLACEMENT AETNA PPO MEDICARE REPLACEMENT AETNA PPO MEDICARE REPLACEMENT AETNA PPO MEDICARE REPLACEMENT AETNA PPO MEDICARE REPLACEMENT Advance Directives For more information, please contact: [phone] (9AM - 5PM [facility]) * Full Code (Latest Code Status on File) Date Activated Date Inactivated Comments 04/02/2022 9:29 PM Question Answer Comments Code Status Confirmed With: Patient Code Status Communicated To: Inpatient Attending Care Teams [employer] Program Coordinator Relationship Specialty Start Date End Date Pcp, Unknown PCP - General 05/21/24 Additional Source Comments The information contained in this document represents components of the legal health record. It is not the complete legal health record.[facility]
--- OUTSIDE RECORDS SUMMARY | 2024-11-15 17:55 | XMS_ITS | Clinical Summary ---
Author Organization [address] Address [address] [place] [id number] Care Team Providers Care Purchasing/Receiving Name Role Phone Tito Velasco MD Primary Care Provider [phone] Allergies No known active allergies Medications levothyroxine [...] 92 12/07/2016 9:04 PM EDT Temperature 36.9 C (98.4 F) 12/07/2016 9:04 PM EDT Respiratory Rate 20 12/07/2016 9:04 PM EDT [...] Shingrix (RZV) 2 Dose Standard Series) 2009 Osteoporosis screening (bone density) 2024 Covid-19 vaccine series (1 - 2023- season) 2024 Influenza vaccine 11/05/2024 11/11/2021, 12/08/2019 RSV Immunization (1 - 1-dose 75+ series) 2034 Cervical cancer screening Discontinued Meningococcal B Vaccine Aged Out No l onger eligible based on patient's age to complete this topic Meningococcal Vaccine Aged Out No gianluca marilynn eligible based on patient's age to complete this topic Insurance MEDICARE [facility] MEDICARE [facility] MEDICARE [facility] Care Teams Purchasing/Receiving Relationship Specialty Start Date End Date Tito Velasco MD PCP - General Internal Medicine 12/07/16
--- OUTSIDE RECORDS SUMMARY | 2024-11-15 17:55 | XMS_ITS | Encounter Summary ---
Author Organization [facility] Address [address] [place] [phone] Phone Care Team Providers Care Pharmacy Tech Name Role Phone Tito Velasco MD Primary Care Provider Phoebe Neal MD Primary Care Provider + Phoebe Neal MD Primary Care Provider + Pcp, Unknown Primary Care Provider Unavailabl e Encounter Details Date Type Department Care Team (Latest Contact Info) Description 07/01/[address] [facility] [address] [place] [address] Tito Velasco MD [address] [place] [address] Hyperlipidemia, unspecified hyperlipidemia type (Primary Dx); Hypothyroidism, unspecified type; Vitamin D deficiency, unspecified; Uterine leiomyoma, unspecified location Social History Tobacco Use Types Packs/Day Years Used Date Smoking Tobacco: Never Assessed Comments Unknown Sex and Gender Information Value Date Recorded Sex Assigned at Female 02/17/2022 1:59 PM EST Legal Sex Female 8:26 AM EST Gender Identity Female 02/17/2022 1:59 PM EST Sexual Orientation Queer 02/17/2022 1: 59 PM EST documented as of this encounter Plan of Treatment Not on file documented as of this encounter Results * CBC and differential (07/01/2020 11:31 AM EDT) WBC 8.77 4.00 - 11.00 K/uL [facility] RBC 5.05 3.72 - 5.30 M/uL [facility] HGB 14.6 11.4 - 15.9 g/dL [facility] HCT 44.0 34.2 - 46.8 % [facility] PLT 348 140 - 430 K/uL [facility] MCV 87.1 78.0 - 97.0 fL [facility] MCH 28.9 25.0 - 33.0 pg [facility] MCHC 33.2 32.0 - 36.0 g/dL [facility] RDW 13.4 11.0 - 16.0 % [facility] MPV 10.0 8.4 - 12.8 fl [facility] NRBC 0.00 0 /100 WBCs [facility] ABSOLUTE NRBC 0.00 0 K/uL [facility] DIFF METHOD Auto [facility] NEUTS 57.3 43.0 - 75.0 % [facility] LYMPHS 31.5 18.2 - 47.4 % [facility] MONOS 5.9 4.00 - 11.00 % [facility] EOS 4.3 0.0 - 8.0 % [facility] BASOS 0.7 0.0 - 2.0 % [facility] Granulocytes, immature (%) 0.3 0.0 - 0.9 % [facility] ABSOLUTE NEUTS 5.02 1.80 - 7.70 K/uL [facility] ABSOLUTE LYMPHS 2.76 1.00 - 3.10 K/uL [facility] ABSOLUTE MONOS 0.52 0.20 - 0.80 K/uL [facility] ABSOLUTE EOS 0.38 0.00 - 0.80 K/uL [facility] ABSOLUTE BASOS 0.06 0.00 - 0.09 K/uL [facility] Granulocytes, immature 0.03 0.00 - 0.05 K/uL [facility] Blood 07/01/2020 11:3 1 AM EDT 07/01/2020 11:34 AM EDT us Tito Velasco MD LAB BLOOD ORDERABLES Final Result [address] [address] * (ABNORMAL) 25-OH vitamin D (07/01/2020 11:31 AM EDT) 25 OH VIT D (TOTAL) 22(L) 30 - 60 ng/mL [facility] Blood 07/01/2020 11:3 1 AM EDT 07/01/2020 11:34 AM EDT Tito Velasco MD LAB BLOOD ORDERABLES Final Result Performing Organization Address City/[facility]/ZIP Co de Phone Number [address] [address] * (ABNORMAL) TSH (07/01/2020 11:31 AM EDT) Pathologist [facility] TSH 0.02(L) 0.27 - 4.20 uIU/mL [facility] Blood 07/01/2020 11:3 1 AM EDT 07/01/2020 11:34 AM EDT Tito Velasco MD LAB BLOOD ORDERABLES Final Result Performing Organization Address [facility]/ZIP Co de Phone Number [address] [address] * Free T4 (07/01/2020 11:31 AM EDT) [facility] FREE T4 1.7 0.9 - 1.7 ng/dL [facility] Blood 07/01/2020 11:3 1 AM EDT 07/01/2020 11:34 AM EDT Tito Velasco MD LAB BLOOD ORDERABLES Final Result Performing Organization Address [facility]/ZIP Co de Phone Number [address] [address] * Comprehensive metabolic panel (07/01/2020 11:31 AM EDT) Pathologist [facility] SODIUM 138 133 - 146 mmol/L [facility] POTASSIUM 4.8 3.3 - 5.1 mmol/L [facility] CHLORIDE 103 96 - 108 mmol/L [facility] CO2 23 21 - 35 mmol/L [facility] BUN 19 6 - 19 mg/dL [facility] CREATININE 1.00 0.5 - 1.5 mg/dL [facility] GLUCOSE 70 70 - 99 mg/dL [facility] ALBUMIN 4.1 3.9 - 4.8 g/dL [facility] TOTAL PROTEIN 7.2 6.5 - 8.0 g/dL [facility] CALCIUM 9.9 8.4 - 10.3 mg/dL [facility] ALKALINE PHOSPHATASE 62 39 - 117 U/L [facility] TOTAL BILIRUBIN 0.5 0.0 - 1.2 mg/dL [facility] AST 16 0 - 37 U/L [facility] ALT 13 0 - 40 U/L [facility] GLOBULIN 3.1 1 - 4.8 g/dL [facility] EGFR 61 >59 mL/min/1.7 3m2 [facility] Comment:Estimated glomerular filtration rate calculated using the CKD-EPI equation. ANION GAP 17 10 - 20 mmol/L [facility] Blood 07/01/2020 11:3 1 AM EDT 07/01/2020 11:34 AM EDT us Tito Velasco MD LAB BLOOD ORDERABLES Final Result Performing Organization Address City/State/[facility] Co de Phone Number [address] [address] * (ABNORMAL) Lipid panel (07/01/2020 11:31 AM EDT) HDL 73 mg/dL [facility] Comment: Interpretation <40 mg/dL: Low HDL cholesterol (major risk factor for CHD) Greater than or equal to 60 mg/dL: High HDL cholesterol ( negative risk factor for CHD) HDL - cholesterol is affected by a number of factors, e.g. smoking, excerise, hormones, sex and age. CHOLESTEROL 226 0 - 240 mg/dL [facility] TRIGLYCERIDES 103 30 - 160 mg/dL [facility] LDL 132(H) 50 - 129 mg/dL [facility] Comment: LDL levels in terms of risk for coronary heart disease: <100 mg/dL: Optimal 100-129 mg/dL: Near or above optimal 130-159 mg/dL: Borderline high 160-189 mg/dL: High >190 mg/dL: Very High CARDIAC RISK RATIO 3.1(L) 3.3 - 4.4 [facility] Blood 07/01/2020 11:3 1 AM EDT 07/01/2020 11:34 AM EDT Tito Velasco MD LAB BLOOD ORDERABLES Final Result [facility] [address] [place] [address] documented in this encounter Visit Diagnoses Diagnosis Hyperlipidemia, unspecified hyperlipidemia type- Primary Hypothyroidism, unspecified type Vitamin D deficiency, unspecified Uterine leiomyoma, unspecified location documented in this encounter Additional Health Concerns Infection Onset Date Last Indicated Resolved Time CoV-Presumed 12/02/2021 12/02/2021 12/23/2021 1:21 AM EDT documented as of this encounter Care Teams Pharmacy Tech Relationship Specialty Start Date End Date Tito Velasco MD [address] [place] [address] PCP - General Internal Medicine 04/18/19 11/09/21 Phoebe Neal MD [address] [place] [address] PCP - General Family Medicine 11/10/21 11/04/22 Phoebe Neal MD [address] [place] [address] [address] [place] [address] PCP - General Family Medicine 09/06/23 05/20/24 Pcp, Unknown PCP - General 05/21/24 documented as of this encounter Additional Source Comments The information contained in this document represents components of the legal health record. It is not the complete legal health record.[facility]
== END 2024-11-15 14:08 | disposition home or self-care (01) ==
LOC: HO.HOSX 14:07
PROVIDERS: Visit Provider Orthopaedic Surgery
DX: Z47.1 Aftercare following joint replacement surgery (principal); Z96.641 Presence of right artificial hip joint; M25.551 Pain in right hip
CPT/HCPCS: 72170; 73501; 99212

== ENCOUNTER 2024-11-15 14:10 | Outpatient (AMB) | payer MEDICARE, SELFPAY ==
--- NOTE | 2024-11-15 14:16 | MHC.OFFVIS ---
Intake Visit Reasons: 2nd PO: R GOPAL w/NE 10/09/24 Intake Note: Madid is a 64 year old female who presents today for a post operative appointment about 5 weeks s/p Right GOPAL 10/09/24. Patient reports that she is doing very well. She is working with [facility] in [place]. She is very happy with her outcome. Allergies Rtccxlr-TBR-PhQ Reductase Inhibitor Allergy (Severe, Verified 11/15/24 14:21) joint pain, stiffness, muscle aches atorvastatin Adverse Reaction (Severe, Verified 11/15/24 14:21) Palpitations ezetimibe Adverse Reaction (Severe, Verified 11/15/24 14:21) Palpitations HPI HPI 2nd PO: R GOPAL w/NE 10/09/24: Details: Maddi is a 64 year old female who presents today for a post operative appointment about 5 weeks s/p Right GOPAL 10/09/24. Patient reports that she is doing very well. She is working with [facility] in [place]. She is very happy with her outcome. [facility] Medical History (Updated 10/12/24 @ 00:01 by Brenda Phillips) Uterine myoma Osteoarthritis Acid reflux Depression CKD (chronic kidney disease) Screening for cervical cancer Screening for colon cancer Well woman exam Osteopenia Right rotator cuff tear PTSD (post-traumatic stress disorder) Borderline high cholesterol Hypertension Hypothyroidism Surgical History Hx of eye surgery (~12/2022) History of wisdom tooth extraction H/O rotator cuff surgery (~2014) H/O left knee surgery Family History Other Mental health disorder Social History Household Members: None Housing: Apartment Are you a primary adult live in caregiver to a significant other at home: No Do you presently have visiting nurse or other home services: Yes Patient Tobacco Use Status: Current everyday Tobacco user Tobacco use type: Cigarette Cigarettes Per Day: 15 e-Cigarette/Vaping Use: Never Used service: No Current occupational status: retired Cognitive needs: No Hearing needs: No Vision needs: Yes Physical Exam Extrem Other: Walking comfortably without limp. No pain with hip range of motion. Incision clean dry and intact. Results Reviewed Results Reviewed: I personally reviewed relevant radiographs. Right GOPAL in expected post operative position with no hardware complications or evidence of loosening Assessment & Plan Assessment & Plan (1) Status post total hip replacement, right: Code(s): Z96.641 - Presence of right artificial hip joint Category: Surgical Plan: Status post right hip replacement doing well. May discontinue her aspirin. Continue exercises and gentle activity. Follow up 6 weeks Orders: Orders XR pelvis 1-2V Today M25.559 - Pain in unspecified hip XR hip RT 1V Today M25.559 - Pain in unspecified hip Coding Level of Care Code Global (61318) Diagnoses Status post total hip replacement, right Z96.641
== END 2024-11-15 14:35 | disposition home or self-care (01) ==
LOC: HO.HOS 14:11
PROVIDERS: PCP Nurse Practitioner Family; Visit Provider Orthopaedic Surgery
DX: Z96.641 Presence of right artificial hip joint (principal)
CPT/HCPCS: 99024

== ENCOUNTER → 2024-11-15 14:14 | Outpatient (BNV) | payer MEDICARE, SELFPAY | PROVIDERS: Visit Provider Radiology Diagnostic Radiology | DX: M25.551 Pain in right hip (principal) | CPT/HCPCS: 72170; 73501 ==

== ENCOUNTER 2024-12-24 10:07 | Outpatient (AMB) | payer MEDICARE, SELFPAY ==
--- NOTE | 2024-12-24 10:21 | A.OFFVIS_ITS ---
Intake Visit Reasons: PO- R GOPAL w/NE 10/09/24 Intake Note: Maddi is a 64 year old female who presents today for a post operative appointment about 10 weeks s/p Right GOPAL 10/09/2024. Continues to work with [facility] in [place]. Patient reports that she is doing very well, with no concerns. Patient states she is very please with surgery and is happy she is able to enjoy life pain free. Allergies Srxuwpw-TSY-VdF Reductase Inhibitor Allergy (Severe, Verified 12/24/24 10:25) joint pain, stiffness, muscle aches atorvastatin Adverse Reaction (Severe, Verified 12/24/24 10:25) Palpitations ezetimibe Adverse Reaction (Severe, Verified 12/24/24 10:25) Palpitations HPI HPI PO- R GOPAL w/NE 10/09/24: Details: Doing well status post right hip replacement. Has no pain. Walking normally. No complaints. [facility] Medical History (Updated 10/12/24 @ 00:01 by Brenda Phillips) Uterine myoma Osteoarthritis Acid reflux Depression CKD (chronic kidney disease) Screening for cervical cancer Screening for colon cancer Well woman exam Osteopenia Right rotator cuff tear PTSD (post-traumatic stress disorder) Borderline high cholesterol Hypertension Hypothyroidism Surgical History Hx of eye surgery (~12/2022) History of wisdom tooth extraction H/O rotator cuff surgery (~2014) H/O left knee surgery Family History Other Mental health disorder Social History Household Members: None Housing: Apartment Are you a primary child caregiver private home to a significant other at home: No Do you presently have visiting nurse or other home services: Yes Patient Tobacco Use Status: Current everyday Tobacco user Tobacco use type: Cigarette Cigarettes Per Day: 15 e-Cigarette/Vaping Use: Never Used service: No Current occupational status: retired Cognitive needs: No Hearing needs: No Vision needs: Yes Physical Exam Exam Exam: No acute distress. Can bend with her knees to reach objects on the floor comfortably. Walks without antalgia. No hip pain with range of motion. Incision clean dry and intact. Assessment & Plan Assessment & Plan (1) Status post total hip replacement, right: Code(s): Z96.641 - Presence of right artificial hip joint Category: Surgical Plan: Doing well status post right hip replacement. Antibiotic sent to her pharmacy for dental work. May follow up in 9 months or sooner if needed. Coding Level of Care Code Global (76867) Diagnoses Status post total hip replacement, right Z96.641
--- OUTSIDE RECORDS SUMMARY | 2024-12-24 11:43 | XMS_ITS | Encounter Summary ---
Author Organization [place] [facility] Care Team Providers Care Assistant Professor In Family Studies Name Role Phone Tito Velasco MD Primary Care Provider [phone] Encounter Details Date Type Department Care Team (Late st Contact Info) Description 08/01/2015 Abstract [facility] [place] [address] [place] [address] Provider, Historical . Social History Tobacco Use [...] on filedocumented in this encounter Care Teams Assistant Professor In Family Studies Relationship Specialty Start Date End Date Tito Velasco MD PCP - General Internal Medicine 12/07/16 documented as of this encounter
--- OUTSIDE RECORDS SUMMARY | 2024-12-24 11:43 | XMS_ITS | Clinical Summary ---
Author Organization Loc[facility] Address [address] [place] [phone] Phone Care Team Providers Care Sql Architect Name Role Phone Pcp, Unknown Primary Care [...] State: [place] E&M Billing based on time ([id number]): Yes Total time spent on date of [...] Date Smoking Tobacco: Every Day Cigarettes 0.5 47.1 Started: [birth year]/13/1977 Smokeless Tobacco: Never Tobacco Cessation:Ready [...] Additional history exists SCREENING FOR DIABETES 04/01/2025 04/01/2022 LIPID PANEL 12/18/2026 12/18/2021, 06/06, 04/18/2019 RSV [...] EST) SODIUM 137 133 - 146 mmol/L [facility] CHLORIDE 102 96 - 108 mmol/L [facility] POTASSIUM 4.7 3.3 - 5.1 mmol/L [facility] CO2 24 21 - 35 mmol/L [facility] BUN 17 6 - 19 mg/dL [facility] CREATININE 1.10 0.5 - 1.5 mg/dL [facility] GLUCOSE 88 70 - 99 mg/dL [facility] CALCIUM 9.9 8.4 - 10.3 mg/dL [facility] EGFR 56(L) >59 mL/min/1.7 3m2 [facility] Comment:Estimated glomerular filtration rate calculated using the CKD-EPI refit equation. ANION GAP 16 10 - 20 mmol/L [facility] Blood 04/01/2022 2:29 PM EST 04/01/2022 2:32 PM EST Sandra Hernandez PA-C LAB BLOOD ORDERABLES Final Result [facility] [address] [place] [address] * (ABNORMAL) TSH (12/18/2021 7:09 AM EDT) TSH 0.20(L) 0.27 - 4.20 uIU/mL [facility] Blood 12/18/2021 7:09 AM EDT 12/18/2021 9:23 AM EDT Phoebe Neal MD LAB BLOOD ORDERABLES Fin al Result Performing Organization Address [facility] Co de Phone Number [address] [address] * (ABNORMAL) Lipid panel (12/18/2021 7:09 AM EDT) HDL 84 mg/dL [facility] Comment: Interpretation <40 mg/dL: Low HDL cholesterol (major risk factor for CHD) Greater than or equal to 60 mg/dL: High HDL cholesterol ( negative risk factor for CHD) HDL - cholesterol is affected by a number of factors, e.g. smoking, excerise, hormones, sex and age. CHOLESTEROL 233 0 - 240 mg/dL [facility] TRIGLYCERIDES 61 30 - 160 mg/dL [facility] LDL 137(H) 50 - 129 mg/dL [facility] Comment: LDL levels in terms of risk for coronary heart disease: <100 mg/dL: Optimal 100-129 mg/dL: Near or above optimal 130-159 mg/dL: Borderline high 160-189 mg/dL: High >190 mg/dL: Very High CARDIAC RISK RATIO 2.8(L) 3.3 - 4.4 [facility] Blood 12/18/2021 7:09 AM EDT 12/18/2021 9:19 AM EDT us Phoebe Neal MD LAB BLOOD ORDERABLES Fin al Result Performing Organization Address City/[facility] Co de Phone Number [address] [address] * Hepatitis C antibody, qualitative (04/18/2019 8:43 AM EST) HCV NON-REACTIV E NON-REACTI VE [facility] Blood 04/18/2019 8:43 AM EST 04/18/2019 8:46 AM EST Tito Velasco MD LAB BLOOD ORDERABLES Final Result [facility] [address] [place] [address] from Last 3 Months or Most Recently Relevant to Health Maintenance Insurance [employer] O MEDICARE REPLACEMENT AETNA O MEDICARE REPLACEMENT [employer] PPO MEDICARE REPLACEMENT AET[employer] PPO MEDICARE REPLACEMENT [employer] PPO MEDICARE REPLACEMENT [employer]ET[employer] PPO MEDICARE REPLACEMENT Advance Directives For more information, please contact: [phone] (9AM - 5PM [facility], Tuesday-Tuesday) * Full Code (Latest Code Status on File) Date Activated Date Inactivated Comments 04/02/2022 9:29 PM Question Answer Comments Code Status Confirmed With: Patient Code Status Communicated To: Inpatient Attending Care Teams Sql Architect Relationship Specialty Start Date End Date Pcp, Unknown PCP - General 05/21/24 Additional Source Comments The information contained in this document represents components of the legal health record. It is not the complete legal health record.[facility]
--- OUTSIDE RECORDS SUMMARY | 2024-12-24 11:43 | XMS_ITS | Clinical Summary ---
Author Organization [address] Address [address] [place] [phone] Care Team Providers Care Atmospheric Physicist Name Role Phone Tito Velasco MD Primary Care Provider [phone] Allergies No known active allergies Medications levothyroxine [...] Series) 2009 Osteoporosis screening (bone density) 2024 Influenza vaccine 10/05/2024 11/11/2021, 12/08/2019 Covid-19 vaccine series ( - 2024- season) 2024 RSV Immunization (1 - 1-dose 75+ series) 2034 Cervical cancer screening Discontinued Meningococcal B Vaccine Aged Out No l onger eligible based on patient's age to complete this topic Meningococcal Vaccine Aged Out No gianluca marilynn eligible based on patient's age to complete this topic Insurance MEDICARE [facility] MEDICARE [facility] MEDICARE [facility] Care Teams Atmospheric Physicist Relationship Specialty Start Date End Date Tito Velasco MD PCP - General Internal Medicine 12/07/16
--- OUTSIDE RECORDS SUMMARY | 2024-12-24 11:43 | XMS_ITS | Encounter Summary ---
Author Organization [facility] Address [address] [place] [id number] Phone Care Team Providers Care Neurology Technologist Name Role Phone Tito Velasco MD Primary Care Provider Phoebe Neal MD Primary Care Provider + Phoebe Neal MD Primary Care Provider + Pcp, Unknown Primary Care Provider Unavailabl e Encounter Details Date Type Department Care Team (Latest Contact Info) Description 07/01/2020 Transcribe Orders [facility] [address] [place] [address] Tito Velasco MD [address] [place] [id number] Hyperlipidemia, unspecified hyperlipidemia type (Primary Dx); Hypothyroidism, [...] EDT) WBC 8.77 4.00 - 11.00 K/uL [facility] RBC 5.05 3.72 - 5.30 M/uL [facility] HGB 14.6 11.4 - 15.9 g/dL [facility] HCT 44.0 34.2 - 46.8 % [facility] PLT 348 140 - 430 K/uL [facility] MCV 87.1 78.0 - 97.0 fL [facility] MCH 28.9 25.0 - 33.0 pg [facility] MCHC 33.2 32.0 - 36.0 g/dL [facility] RDW 13.4 11.0 - 16.0 % [facility] MPV 10.0 8.4 - 12.8 fl [facility] NRBC 0.00 0 /100 WBCs [facility] ABSOLUTE NRBC 0.00 0 K/uL [facility] DIFF METHOD Auto [facility] NEUTS 57.3 43.0 - 75.0 % [facility] LYMPHS 31.5 18.2 - 47.4 % [facility] MONOS 5.9 4.00 - 11.00 % [facility] EOS 4.3 0.0 - 8.0 % [facility] BASOS 0.7 0.0 - 2.0 % [facility] Granulocytes, immature (%) 0.3 0.0 - 0.9 % [facility] ABSOLUTE NEUTS 5.02 1.80 - 7.70 K/uL [facility] ABSOLUTE LYMPHS 2.76 1.00 - 3.10 K/uL [facility] ABSOLUTE MONOS 0.52 0.20 - 0.80 K/uL [facility] ABSOLUTE EOS 0.38 0.00 - 0.80 K/uL [facility] ABSOLUTE BASOS 0.06 0.00 - 0.09 K/uL [facility] Granulocytes, immature 0.03 0.00 - 0.05 K/uL [facility] Blood 07/01/2020 11:3 1 AM EDT 07/01/2020 11:34 AM EDT us Tito Velasco MD LAB BLOOD ORDERABLES Final Result [address] [address] * (ABNORMAL) 25-OH vitamin D (07/01/2020 11:31 AM EDT) 25 OH VIT D (TOTAL) 22(L) 30 - 60 ng/mL [facility] Blood 07/01/2020 11:3 1 AM EDT 07/01/2020 11:34 AM EDT Tito Velasco MD LAB BLOOD ORDERABLES Final Result Performing Organization Address City/[facility]/ZIP Co de Phone Number [address] [address] * (ABNORMAL) TSH (07/01/2020 11:31 AM EDT) Pathologist [facility] TSH 0.02(L) 0.27 - 4.20 uIU/mL [facility] Blood 07/01/2020 11:3 1 AM EDT 07/01/2020 11:34 AM EDT Tito Velasco MD LAB BLOOD ORDERABLES Final Result Performing Organization Address [facility]/ZIP Co de Phone Number [address] [address] * Free T4 (07/01/2020 11:31 AM EDT) [facility] FREE T4 1.7 0.9 - 1.7 ng/dL [facility] Blood 07/01/2020 11:3 1 AM EDT 07/01/2020 11:34 AM EDT Tito Velasco MD LAB BLOOD ORDERABLES Final Result Performing Organization Address [facility]/ZIP Co de Phone Number [address] [address] * Comprehensive metabolic panel (07/01/2020 11:31 AM EDT) Pathologist [facility] SODIUM 138 133 - 146 mmol/L [facility] POTASSIUM 4.8 3.3 - 5.1 mmol/L [facility] CHLORIDE 103 96 - 108 mmol/L [facility] CO2 23 21 - 35 mmol/L [facility] BUN 19 6 - 19 mg/dL [facility] CREATININE 1.00 0.5 - 1.5 mg/dL [facility] GLUCOSE 70 70 - 99 mg/dL [facility] ALBUMIN 4.1 3.9 - 4.8 g/dL [facility] TOTAL PROTEIN 7.2 6.5 - 8.0 g/dL [facility] CALCIUM 9.9 8.4 - 10.3 mg/dL [facility] ALKALINE PHOSPHATASE 62 39 - 117 U/L [facility] TOTAL BILIRUBIN 0.5 0.0 - 1.2 mg/dL [facility] AST 16 0 - 37 U/L [facility] ALT 13 0 - 40 U/L [facility] GLOBULIN 3.1 1 - 4.8 g/dL [facility] EGFR 61 >59 mL/min/1.7 3m2 [facility] Comment:Estimated glomerular filtration rate calculated using the CKD-EPI equation. ANION GAP 17 10 - 20 mmol/L [facility] Blood 07/01/2020 11:3 1 AM EDT 07/01/2020 11:34 AM EDT us Tito Velasco MD LAB BLOOD ORDERABLES Final Result Performing Organization Address City/State/[facility] Co de Phone Number [address] [address] * (ABNORMAL) Lipid panel (07/01/2020 11:31 AM EDT) HDL 73 mg/dL [facility] Comment: Interpretation <40 mg/dL: Low HDL cholesterol (major risk factor for CHD) Greater than or equal to 60 mg/dL: High HDL cholesterol ( negative risk factor for CHD) HDL - cholesterol is affected by a number of factors, e.g. smoking, excerise, hormones, sex and age. CHOLESTEROL 226 0 - 240 mg/dL [facility] TRIGLYCERIDES 103 30 - 160 mg/dL [facility] LDL 132(H) 50 - 129 mg/dL [facility] Comment: LDL levels in terms of risk for coronary heart disease: <100 mg/dL: Optimal 100-129 mg/dL: Near or above optimal 130-159 mg/dL: Borderline high 160-189 mg/dL: High >190 mg/dL: Very High CARDIAC RISK RATIO 3.1(L) 3.3 - 4.4 [facility] Blood 07/01/2020 11:3 1 AM EDT 07/01/2020 11:34 AM EDT Tito Velasco MD LAB BLOOD ORDERABLES Final Result [facility] [address] [place] [address] documented in this encounter Visit Diagnoses Diagnosis Hyperlipidemia, unspecified hyperlipidemia type- Primary Hypothyroidism, unspecified type Vitamin D deficiency, unspecified Uterine leiomyoma, unspecified location documented in this encounter Additional Health Concerns Infection Onset Date Last Indicated Resolved Time CoV-Presumed 12/02/2021 12/02/2021 12/23/2021 1:21 AM EDT documented as of this encounter Care Teams Neurology Technologist Relationship Specialty Start Date End Date Tito Velasco MD [address] [place] [address] PCP - General Internal Medicine 04/18/19 11/09/21 Phoebe Nael MD [address] [place] [address] PCP - General Family Medicine 11/10/21 11/04/22 Phoebe Neal MD [address] [place] [address] [address] [place] [address] PCP - General Family Medicine 09/06/23 05/20/24 Pcp, Unknown PCP - General 05/21/24 documented as of this encounter Additional Source Comments The information contained in this document represents components of the legal health record. It is not the complete legal health record.[facility]
--- OUTSIDE RECORDS SUMMARY | 2024-12-24 11:43 | XMS_ITS | Clinical Summary ---
Author Organization [facility] Address [address] [place] [address] Care Team Providers Care Pinion Polisher Name Role Phone Tito Velasco MD Primary Care Provider [phone] Allergies No known active allergies Social History [...] - 2023-2 5 season) 2024 RSV Vaccine 50 years and old er and Patients (1 - 1-dose 75+ series) 2034 Hepatitis B Vaccines Aged Out No long er eligible based on patient's age to complete this topic Insurance MEDICARE PART A & B [facility] Care Teams Pinion Polisher Relationship Specialty Start Date End Date Tito Velasco MD PCP - General Internal Medicine 01/27/16
--- OUTSIDE RECORDS SUMMARY | 2024-12-24 11:43 | XMS_ITS | Clinical Summary ---
Author Organization [facility] Address [address] [place] [address] Care Team Providers Care Hide Cleaner Name Role Phone Tito Velasco MD Primary [...] Hearing loss 01/05/2018 Overview (04/10/2023): Impression - [id number]: refer to audiology Encounter for preventive health examination 09/04 Tinnitus 06/02/2016 Obesity 03/09/2016 Overview (04/10/2023): Impression - [id number]: has lost 30 lbs intentially over the last year - doing well Hyperlipidemia 03/14/2013 Overview (04/10/2023): Impression - 53Myd2470: check labs Insomnia 02/14/2012 Overview (04/10/2023): Impression - [id number]: takes ambien prn Obstructive sleep apnea 08/12/2011 Overview (04/10/2023): Impression - 76Tcn5017: symptoms resolved after weight loss Vitamin D deficiency 08/12/2011 Encounter for preventive health examination 05/2009 Benign essential hypertension 10/07/2009 Overview (04/10/2023): Impression - 03Muo3399: controlled - continue current meds Hypothyroidism 10/07/2009 Overview (04/10/2023): Impression - 85Oex6647: clinically euthyroid Resolved Problems Problem Noted Date [...] Date and Time utilized. Testing Performed at: [facility], [address] [place] [address], , Equal Employment Opportunity Officer: Mary Jane Haider MD CL#[id number] us Tito Velasco MD LABORATORY Final Result [...] PM EST FASTING: YES Testing Performed at: [facility], [address] [place] [address], , Equal Employment Opportunity Officer: Mary Jane Haider MD CL#[id number] [place] [facility] Final Re sult PHCT [...] of collection device in vial PHCT CONVERSIONS Preschool Paraprofessional (Cvx/Vag) BLC,CT(ASCP) CT screening location: [place] [address] PHCT CONVERSIONS COMMENT SEE NOTE PHCT CONVERSIONS [...] PM EST [facility] Testing performed at: 1, [facility], [address] [place] [address], [address], [place], [address], Equal Employment Opportunity Officer: Shorty Marroquin MD [facility] Collection Date/Time: [id number] [facility] Results Received Date/Time: [id number] [facility] Reported Date/Time: [id number] [place] APRN PATHOLOGY-INTERFACED Fin al Result Performing Organization Address City/[facility]/ZIP Co de Phone Number PHCT CONVERSIONS from Last 3 Months or Most Recently Relevant to Health Maintenance Care Teams Hide Cleaner Relationship Specialty Start Date End Date Tito Velasco MD PCP - General 10/11/22 Tito Velasco MD PCP - Backup PCP Internal Medicine 04/07/23
== END 2024-12-24 10:50 | disposition home or self-care (01) ==
LOC: HO.HOS 10:08
PROVIDERS: PCP Nurse Practitioner Family; Visit Provider Orthopaedic Surgery
DX: Z96.641 Presence of right artificial hip joint (principal)
CPT/HCPCS: 99024

== ENCOUNTER → 2024-12-24 10:07 | Outpatient (BNVA) | payer MEDICARE, SELFPAY | PROVIDERS: PCP Nurse Practitioner Family; Visit Provider Orthopaedic Surgery | DX: Z98.890 Other specified postprocedural states (principal); Z96.641 Presence of right artificial hip joint | CPT/HCPCS: 99212 ==

== ENCOUNTER 2025-01-03 08:59 | Outpatient (AMB) | payer MEDICARE, SELFPAY ==
--- NOTE | 2025-01-03 09:08 | A.OFFPC_ITS ---
Vital Signs 01/03/25 09:09 Height 5 ft 2 in Weight 199 lb BMI 36.4 BP 108/60 Blood Pressure Location Lt brachial Position Sitting Pulse 93 Temp 98.1 F Temp Source Oral Pulse Oximetry (%) 95 Intake Visit Reasons: follow up reschedule Labor/Excavator Required: No Accompanied by: Self / Same As Patient Allergies [id number]-MuC Reductase Inhibitor Allergy (Severe, Verified 01/03/25 09:11) joint pain, stiffness, muscle aches atorvastatin Adverse Reaction (Severe, Verified 01/03/25 09:11) Palpitations ezetimibe Adverse Reaction (Severe, Verified 01/03/25 09:11) Palpitations Medication List - Last Reconciled 01/03/25 by KIMBERLY Emerson [3 in 1 commode DURATION : LIFETIME] acetaminophen 650 mg (2 x 325 mg) PO Q6H PRN 30 days aspirin 325 mg PO BID 42 days bupropion HCl XL 150 mg PO DAILY cholecalciferol (vitamin D3) 50 mcg PO DAILY 90 days docusate sodium 100 mg PO BID 14 days [Folding Front Wheeled walker Duration: 99 days] levothyroxine 137 mcg PO DAILY olmesartan 5 mg PO DAILY [SHOWER CHAIR DURATION: LIFETIME] walker Rollator walker with seat and brakes Tobacco use date assessed: 01/03/25 Fall risk assessment: No Falls in past year Last assessed Fall Risk: 01/03/25 Dental Screening Dental Screen Date: 04/25/24 Did you have a dental visit in the last 12 months?: Yes Did you have a dental problem in the last 6 months where you did not have access to dental care?: No Was dental information given to patient?: Patient has dentist HPI follow up reschedule HPI Details Chief Complaint Patient presents for a follow-up visit for health maintenance. History of Present Illness The patient is a 64-year-old female presenting for a follow-up visit and health maintenance. She recently underwent a hip replacement and is reporting significant improvement in her condition. The patient is a smoker. She engages in regular exercise and stretching and intends to begin a walking routine. The patient is morbidly obese. Her blood pressure is stable, and she denies any chest pain, increased shortness of breath, headaches, or blurred vision. Social History - Substance Use: Patient is a smoker. - Exercise: The patient exercises and st retches on a regular basis and plans on starting more of a walking routine. Health Maintenance For health maintenance, fasting lab orders have been entered. mammo scheduled, colon screen scheduled Review of Systems - Cardiovascular: Denies chest pain. - Respiratory: Denies increased shortnes s of breath. - Neurological: Denies headaches. - Eyes: Denies blurred vision. Physical Exam General: Cooperative, healthy appearing, comfortable, no acute distress and well developed, obese Orientation: Patient oriented x3 Limitations: No limitations Head: Normal to inspection Ears: Hearing grossly normal bilaterally Nose: Normal external nose present Face and sinus: Normal facial exam Eyes: Appearance normal, both eyes and all related structures Neck: Normal visual inspection and Yes full ROM Respiratory: Normal respiratory effort and able to speak in complete sentences. Clear to auscultation bilaterally Cardiovascular: Regular rate and rhythm. Normal S1 and S2 GI: Normal to inspection. Soft to palpation and nontender Skin: No rashes or lesions noted Neuro: Patient oriented x3 Extremities: Normal to inspection, no edema noted Results Plan 1. Morbid Obesity The patient is morbidly obese. She will continue her current regimen of regular exercise and stretching and has been encouraged to start a walking routine. 2. Tobacco Use Disorder The patient is a current smoker and will be enrolled in a low-dose CT scan program for lung cancer screening. 3. HTN: stable Discussion Notes I noted the patient is recovering very well from her recent hip replacement, with stable blood pressure and no acute complaints. We discussed her status as a smoker, and I have arranged for her to participate in a low-dose CT scan program for lung cancer screening. We also addressed her morbid obesity, and she has expressed plans to increase her physical activity by starting a walking routine. I have entered orders for her to complete fasting labs for ongoing health monitoring. Patient Instructions - You must fast before you get your labs done. - Please make an appointment for your lo w-dose CT scan. - Continue to exercise and stretch regul papo. - You may start a walking routine as you planned. [facility] Medical History (Updated 01/03/25 @ 09:54 by Grayson Stone, [facility]) Hypertension Uterine myoma Osteoarthritis Acid reflux Depression CKD (chronic kidney disease) Screening for cervical cancer Screening for colon cancer Well woman exam Osteopenia Right rotator cuff tear PTSD (post-traumatic stress disorder) Borderline high cholesterol Hypothyroidism Surgical History Hx of eye surgery (~12/2022) History of wisdom tooth extraction H/O rotator cuff surgery (~2014) H/O left knee surgery Family History Other Mental health disorder Social History Household Members: None Housing: Apartment Are you a primary skin care specialist to a significant other at home: No Do you presently have visiting nurse or other home services: Yes Patient Tobacco Use Status: Current everyday Tobacco user Tobacco use type: Cigarette Cigarettes Per Day: 15 e-Cigarette/Vaping Use: Never Used service: No Current occupational status: retired Cognitive needs: No Hearing needs: No Vision needs: Yes Questionnaire Thrive Questionnaire Date Thrive assessed: 04/18/24 I am a: Patient What is your living situation today?: I have a steady place to live Within the past 12 months, did the food you bought not last and you didn't have the money to get more?: Never true Within the past 12 months, did you worry whether your food would run out before you got money to buy more?: Never true Do you have trouble paying for medicines?: No Do you have trouble getting transportation to medical appointments?: No Do you have trouble paying your heating and electricity bill?: No Do you have trouble taking care of your child, family member or friend?: No Do you have trouble with day-to-day activities such as bathing, preparing meals, shopping, managing finances, etc.?: I choose not to answer this question Are you currently unemployed and looking for a job?: No Are you interested in more education?: No Please select the resources that you would like help with: None Currently or been in a relationship where the following occur: No concerns reported THRIVE Score: 0 JOSETTE-7 AMB Questionnaire JOSETTE-7 Date JOSETTE - 7 assessed: 04/25/24 Source: Developed by Drs. Ibrahima Fountain, Tahmina iLeberman, Giovanni Seals and colleagues, with an educational ash from [employer]. Physical exam (Primary Care) Vital Signs: Last Vital Signs Temp 98.1 F 01/03/25 09:09 Pulse 93 01/03/25 09:09 BP 108/60 01/03/25 09:09 Pulse Ox 95 01/03/25 09:09 BMI result Body Mass Index 36.4 Tobacco/Smoking Status: Tobacco use Status Tobacco use date assessed 01/03/25 01/03/25 09:15 Patient Tobacco Use Status Current everyday Tobacco 01/03/25 09:09 Tobacco use type Cigarette 01/03/25 09:09 e-Cigarette/Vaping Use Never Used 01/03/25 09:09 Thrive Assessment: Date of Thrive Assessment Date Thrive assessed 04/18/24 01/03/25 09:09 Currently or been in a relationship where the following occur: No concerns reported Coding Level of Care Code Est Pt Level 3 (50055) Diagnoses Dyslipidemia E78.5 Vitamin D deficiency E55.9 Smoker F17.200 Primary hypertension I10 Hypertension type: primary hypertension Assessment & Plan Assessment & Plan (1) Dyslipidemia: Code(s): E78.5 - Hyperlipidemia, unspecified Category: Medical (2) Vitamin D deficiency: Code(s): E55.9 - Vitamin D deficiency, unspecified Category: Medical (3) Smoker: Code(s): F17.200 - Nicotine dependence, unspecified, uncomplicated Category: Social Hx Plan: . (4) Hypertension: Code(s): I10 - Essential (primary) hypertension Category: Medical Qualifiers: Hypertension type: primary hypertension Qualified Code(s): I10 - Essential (primary) hypertension Plan . Orders: Orders Complete Blood Count Auto Diff Today E55.9 - Vitamin D deficiency, unspecified, E78.5 - Hyperlipidemia, unspecified UA CC w/rflx Micro + Cult Today E55.9 - Vitamin D deficiency, unspecified, E78.5 - Hyperlipidemia, unspecified Lipid Panel Today E55.9 - Vitamin D deficiency, unspecified, E78.5 - Hyperlipidemia, unspecified Vitamin D 25-OH Total Today E55.9 - Vitamin D deficiency, unspecified Comprehensive [place]. Panel Fast Today E55.9 - Vitamin D deficiency, unspecified, E78.5 - Hyperlipidemia, unspecified TSH reflex Free T4 Today E55.9 - Vitamin D deficiency, unspecified, E78.5 - Hyperlipidemia, unspecified Referrals Lung Cancer Screening Referral F17.200 - Nicotine dependence, unspecified, uncomplicated
[2025-01-03 09:09] VITALS: BP 108/60; PULSE 93; TEMP 36.7; O2SAT 95; BMI 36.4
--- OUTSIDE RECORDS SUMMARY | 2025-01-03 10:00 | XMS_ITS | Clinical Summary ---
Author Organization [facility] Address [address] [place] [address] Care Team Providers Care Vacuum Filter Operator Name Role Phone Tito Velasco MD Primary Care Provider [phone] Allergies No known active allergies Social History [...] topic Insurance MEDICARE PART A & B [facility] Care Teams Vacuum Filter Operator Relationship Specialty Start Date End Date Tito Velasco MD PCP - General Internal Medicine 01/27/16
--- OUTSIDE RECORDS SUMMARY | 2025-01-03 10:00 | XMS_ITS | Encounter Summary ---
Author Organization [facility] Address [address] [place] [address] Phone Care Team Providers Care Beater Boss Name Role Phone Tito Velasco MD Primary Care Provider [phone] Phoebe Neal MD Primary Care Provider + Phoebe Neal MD Primary Care Provider + Pcp, Unknown Primary Care Provider Unavailabl e Encounter Details Date Type Department Care Team (Latest Contact Info) Description 07/01/2020 Transcribe Orders [facility] [address] [place] [address] Tito Velasco MD [address] [place] [phone] Hyperlipidemia, unspecified hyperlipidemia type (Primary Dx); Hypothyroidism, [...] EDT) WBC 8.77 4.00 - 11.00 K/uL [facility] RBC 5.05 3.72 - 5.30 M/uL [facility] HGB 14.6 11.4 - 15.9 g/dL [facility] HCT 44.0 34.2 - 46.8 % [facility] PLT 348 140 - 430 K/uL [facility] MCV 87.1 78.0 - 97.0 fL [facility] MCH 28.9 25.0 - 33.0 pg [facility] MCHC 33.2 32.0 - 36.0 g/dL [facility] RDW 13.4 11.0 - 16.0 % [facility] MPV 10.0 8.4 - 12.8 fl [facility] NRBC 0.00 0 /100 WBCs [facility] ABSOLUTE NRBC 0.00 0 K/uL [facility] DIFF METHOD Auto [facility] NEUTS 57.3 43.0 - 75.0 % [facility] LYMPHS 31.5 18.2 - 47.4 % [facility] MONOS 5.9 4.00 - 11.00 % [facility] EOS 4.3 0.0 - 8.0 % [facility] BASOS 0.7 0.0 - 2.0 % [facility] Granulocytes, immature (%) 0.3 0.0 - 0.9 % [facility] ABSOLUTE NEUTS 5.02 1.80 - 7.70 K/uL [facility] ABSOLUTE LYMPHS 2.76 1.00 - 3.10 K/uL [facility] ABSOLUTE MONOS 0.52 0.20 - 0.80 K/uL [facility] ABSOLUTE EOS 0.38 0.00 - 0.80 K/uL [facility] ABSOLUTE BASOS 0.06 0.00 - 0.09 K/uL [facility] Granulocytes, immature 0.03 0.00 - 0.05 K/uL [facility] Blood 07/01/2020 11:3 1 AM EDT 07/01/2020 11:34 AM EDT us Tito Velasco MD LAB BLOOD ORDERABLES Final Result [address] [address] * (ABNORMAL) 25-OH vitamin D (07/01/2020 11:31 AM EDT) 25 OH VIT D (TOTAL) 22(L) 30 - 60 ng/mL [facility] Blood 07/01/2020 11:3 1 AM EDT 07/01/2020 11:34 AM EDT Tito Velasco MD LAB BLOOD ORDERABLES Final Result Performing Organization Address City/[facility]/ZIP Co de Phone Number [address] [address] * (ABNORMAL) TSH (07/01/2020 11:31 AM EDT) Pathologist [facility] TSH 0.02(L) 0.27 - 4.20 uIU/mL [facility] Blood 07/01/2020 11:3 1 AM EDT 07/01/2020 11:34 AM EDT Tito Velasco MD LAB BLOOD ORDERABLES Final Result Performing Organization Address [facility]/ZIP Co de Phone Number [address] [address] * Free T4 (07/01/2020 11:31 AM EDT) [facility] FREE T4 1.7 0.9 - 1.7 ng/dL [facility] Blood 07/01/2020 11:3 1 AM EDT 07/01/2020 11:34 AM EDT Tito Velasco MD LAB BLOOD ORDERABLES Final Result Performing Organization Address [facility]/ZIP Co de Phone Number [address] [address] * Comprehensive metabolic panel (07/01/2020 11:31 AM EDT) Pathologist [facility] SODIUM 138 133 - 146 mmol/L [facility] POTASSIUM 4.8 3.3 - 5.1 mmol/L [facility] CHLORIDE 103 96 - 108 mmol/L [facility] CO2 23 21 - 35 mmol/L [facility] BUN 19 6 - 19 mg/dL [facility] CREATININE 1.00 0.5 - 1.5 mg/dL [facility] GLUCOSE 70 70 - 99 mg/dL [facility] ALBUMIN 4.1 3.9 - 4.8 g/dL [facility] TOTAL PROTEIN 7.2 6.5 - 8.0 g/dL [facility] CALCIUM 9.9 8.4 - 10.3 mg/dL [facility] ALKALINE PHOSPHATASE 62 39 - 117 U/L [facility] TOTAL BILIRUBIN 0.5 0.0 - 1.2 mg/dL [facility] AST 16 0 - 37 U/L [facility] ALT 13 0 - 40 U/L [facility] GLOBULIN 3.1 1 - 4.8 g/dL [facility] EGFR 61 >59 mL/min/1.7 3m2 [facility] Comment:Estimated glomerular filtration rate calculated using the CKD-EPI equation. ANION GAP 17 10 - 20 mmol/L [facility] Blood 07/01/2020 11:3 1 AM EDT 07/01/2020 11:34 AM EDT us Tito Velasco MD LAB BLOOD ORDERABLES Final Result Performing Organization Address City/State/[facility] Co de Phone Number [address] [address] * (ABNORMAL) Lipid panel (07/01/2020 11:31 AM EDT) HDL 73 mg/dL [facility] Comment: Interpretation <40 mg/dL: Low HDL cholesterol (major risk factor for CHD) Greater than or equal to 60 mg/dL: High HDL cholesterol ( negative risk factor for CHD) HDL - cholesterol is affected by a number of factors, e.g. smoking, excerise, hormones, sex and age. CHOLESTEROL 226 0 - 240 mg/dL [facility] TRIGLYCERIDES 103 30 - 160 mg/dL [facility] LDL 132(H) 50 - 129 mg/dL [facility] Comment: LDL levels in terms of risk for coronary heart disease: <100 mg/dL: Optimal 100-129 mg/dL: Near or above optimal 130-159 mg/dL: Borderline high 160-189 mg/dL: High >190 mg/dL: Very High CARDIAC RISK RATIO 3.1(L) 3.3 - 4.4 C [facility] Blood 07/01/2020 11:3 1 AM EDT 07/01/2020 11:34 AM EDT Tito Velasco MD LAB BLOOD ORDERABLES Final Result [facility] [address] [place] [address] documented in this encounter Visit Diagnoses Diagnosis Hyperlipidemia, unspecified hyperlipidemia type- Primary Hypothyroidism, unspecified type Vitamin D deficiency, unspecified Uterine leiomyoma, unspecified location documented in this encounter Additional Health Concerns Infection Onset Date Last Indicated Resolved Time CoV-Presumed 12/02/2021 12/02/2021 12/23/2021 1:21 AM EDT documented as of this encounter Care Teams Beater Boss Relationship Specialty Start Date End Date Tito Velasco MD [address] [place] [address] PCP - General Internal Medicine 04/18/19 11/09/21 Phoebe Neal MD [address] [place] [address] PCP - General Family Medicine 11/10/21 11/04/22 Phoebe Neal MD [address] [place] [address] [address] [place] [address] PCP - General Family Medicine 09/06/23 05/20/24 Pcp, Unknown PCP - General 05/21/24 documented as of this encounter Additional Source Comments The information contained in this document represents components of the legal health record. It is not the complete legal health record.[facility]
--- OUTSIDE RECORDS SUMMARY | 2025-01-03 10:00 | XMS_ITS | Clinical Summary ---
Author Organization [facility] Address [address] [place] [address] Phone Care Team Providers Care Window Glass Cutter Off Name Role Phone Pcp, Unknown Primary Care [...] State: [place] E&M Billing based on time (14004-77732): Yes Total time spent on date of [...] EST) SODIUM 137 133 - 146 mmol/L [facility] CHLORIDE 102 96 - 108 mmol/L [facility] POTASSIUM 4.7 3.3 - 5.1 mmol/L [facility] CO2 24 21 - 35 mmol/L [facility] BUN 17 6 - 19 mg/dL [facility] CREATININE 1.10 0.5 - 1.5 mg/dL [facility] GLUCOSE 88 70 - 99 mg/dL [facility] CALCIUM 9.9 8.4 - 10.3 mg/dL [facility] EGFR 56(L) >59 mL/min/1.7 3m2 [facility] Comment:Estimated glomerular filtration rate calculated using the CKD-EPI refit equation. ANION GAP 16 10 - 20 mmol/L [facility] Blood 04/01/2022 2:29 PM EST 04/01/2022 2:32 PM EST Sandra Hernandez PA-C LAB BLOOD ORDERABLES Final Result [facility] [address] [place] [address] * (ABNORMAL) TSH (12/18/2021 7:09 AM EDT) TSH 0.20(L) 0.27 - 4.20 uIU/mL [facility] Blood 12/18/2021 7:09 AM EDT 12/18/2021 9:23 AM EDT Phoebe Neal MD LAB BLOOD ORDERABLES Fin al Result Performing Organization Address [facility] Co de Phone Number [address] [address] * (ABNORMAL) Lipid panel (12/18/2021 7:09 AM EDT) HDL 84 mg/dL [facility] Comment: Interpretation <40 mg/dL: Low HDL cholesterol (major risk factor for CHD) Greater than or equal to 60 mg/dL: High HDL cholesterol ( negative risk factor for CHD) HDL - cholesterol is affected by a number of factors, e.g. smoking, excerise, hormones, sex and age. CHOLESTEROL 233 0 - 240 mg/dL [facility] TRIGLYCERIDES 61 30 - 160 mg/dL [facility] LDL 137(H) 50 - 129 mg/dL [facility] Comment: LDL levels in terms of risk for coronary heart disease: <100 mg/dL: Optimal 100-129 mg/dL: Near or above optimal 130-159 mg/dL: Borderline high 160-189 mg/dL: High >190 mg/dL: Very High CARDIAC RISK RATIO 2.8(L) 3.3 - 4.4 C [facility] Blood 12/18/2021 7:09 AM EDT 12/18/2021 9:19 AM EDT us Phoebe Neal MD LAB BLOOD ORDERABLES Fin al Result Performing Organization Address City/[facility] Co de Phone Number [address] [address] * Hepatitis C antibody, qualitative (04/18/2019 8:43 AM EST) HCV NON-REACTIV E NON-REACTI VE [facility] Blood 04/18/2019 8:43 AM EST 04/18/2019 8:46 AM EST Tito Velasco MD LAB BLOOD ORDERABLES Final Result [facility] [address] [place] [address] from Last 3 Months or Most Recently Relevant to Health Maintenance Insurance [employer] O MEDICARE REPLACEMENT [employer] O MEDICARE REPLACEMENT [employer] PPO MEDICARE REPLACEMENT [employer] PPO MEDICARE REPLACEMENT [employer] PPO MEDICARE REPLACEMENT [employer] PPO MEDICARE REPLACEMENT Advance Directives For more information, please contact: [phone] (9AM - 5PM [facility], Tuesday-Tuesday) * Full Code (Latest Code Status on File) Date Activated Date Inactivated Comments 04/02/2022 9:29 PM Question Answer Comments Code Status Confirmed With: Patient Code Status Communicated To: Inpatient Attending Care Teams Window Glass Cutter Off Relationship Specialty Start Date End Date Pcp, Unknown PCP - General 05/21/24 Additional Source Comments The information contained in this document represents components of the legal health record. It is not the complete legal health record.[facility]
--- OUTSIDE RECORDS SUMMARY | 2025-01-03 10:00 | XMS_ITS | Encounter Summary ---
Author Organization [place] [facility] Care Team Providers Care Nutritional Assistant Name Role Phone Tito Velasco MD Primary Care Provider [phone] Encounter Details Date Type Department Care Team (Late st Contact Info) Description 08/01/2015 Abstract [facility] [place] [address] [place] [address] Provider, Historical . Social History Tobacco Use [...] on filedocumented in this encounter Care Teams Nutritional Assistant Relationship Specialty Start Date End Date Tito Velasco MD PCP - General Internal Medicine 12/07/16 documented as of this encounter
--- OUTSIDE RECORDS SUMMARY | 2025-01-03 10:01 | XMS_ITS | Clinical Summary ---
Author Organization [facility] Address [address] [place] [address] Care Team Providers Care Glass Rolling Machine Operator Name Role Phone Tito Velasco MD [...] Hearing loss 01/05/2018 Overview (04/10/2023): Impression - [id number]: refer to audiology Encounter for preventive health examination 09/04 Tinnitus 06/02/2016 Obesity 03/09/2016 Overview (04/10/2023): Impression - [id number]: has lost 30 lbs intentially over the last year - doing well Hyperlipidemia 03/14/2013 Overview (04/10/2023): Impression - [id number]: check labs Insomnia 02/14/2012 Overview (04/10/2023): Impression - [id number]: takes ambien prn Obstructive sleep apnea 08/12/2011 Overview (04/10/2023): Impression - [id number]: symptoms resolved after weight loss Vitamin D deficiency 08/12/2011 Encounter for preventive health examination 05/2009 Benign essential hypertension 10/07/2009 Overview (04/10/2023): Impression - [id number]: controlled - continue current meds Hypothyroidism 10/07/2009 Overview (04/10/2023): Impression - [id number]: clinically euthyroid Resolved Problems Problem Noted Date [...] Date and Time utilized. Testing Performed at: [facility], [address] [place] [id number], , Experimental Mechanic Electrical: Mary Jane Haider MD CL#[id number] us Tito Velasco MD LABORATORY Final Result [...] PM EST FASTING: YES Testing Performed at: [facility], [address] [place] [id number], , Experimental Mechanic Electrical: Mary Jane Haider MD CL#[id number] [place] [facility] Final Re sult PHCT [...] of collection device in vial PHCT CONVERSIONS Nursery Technician (Cvx/Vag) BLC,CT(ASCP) CT screening location: [place] [address] PHCT CONVERSIONS COMMENT SEE NOTE PHCT CONVERSIONS [...] PM EST [facility] Testing performed at: 1, [facility], [address] [place] [address], [address], [place], [address], Experimental Mechanic Electrical: Shorty Marroquin MD [facility] Collection Date/Time: [id number] [facility] Results Received Date/Time: [id number] [facility] Reported Date/Time: [id number] [place] APRN PATHOLOGY-INTERFACED Fin al Result Performing Organization Address City/[facility]/ZIP Co de Phone Number PHCT CONVERSIONS from Last 3 Months or Most Recently Relevant to Health Maintenance Care Teams Glass Rolling Machine Operator Relationship Specialty Start Date End Date Tito Velasco MD PCP - General 10/11/22 Tito Velasco MD PCP - Backup PCP Internal Medicine 04/07/23
--- OUTSIDE RECORDS SUMMARY | 2025-01-03 10:01 | XMS_ITS | Clinical Summary ---
Author Organization [address] Address [address] [place] [address] Care Team Providers Care Senior Erp Consultant Name Role Phone Tito Velasco MD Primary Care Provider [phone] Allergies No known active allergies Medications levothyroxine [...] age to complete this topic Insurance MEDICARE [facility]IC[facility] MEDICARE [facility] Care Teams Senior Erp Consultant Relationship Specialty Start Date End Date Tito Velacso MD PCP - General Internal Medicine 12/07/16
== END 2025-01-03 09:52 | disposition home or self-care (01) ==
LOC: HO.HMCC 09:00
PROVIDERS: PCP Nurse Practitioner Family; Visit Provider Nurse Practitioner Family
DX: E78.5 Hyperlipidemia, unspecified (principal); E55.9 Vitamin D deficiency, unspecified; F17.200 Nicotine dependence, unspecified, uncomplicated; I10 Essential (primary) hypertension

== ENCOUNTER → 2025-01-03 08:59 | Outpatient (BNVA) | payer MEDICARE, SELFPAY | PROVIDERS: PCP Nurse Practitioner Family; Visit Provider Nurse Practitioner Family | DX: E66.01 Morbid (severe) obesity due to excess calories (principal); I10 Essential (primary) hypertension; E78.5 Hyperlipidemia, unspecified; E55.9 Vitamin D deficiency, unspecified; F17.210 Nicotine dependence, cigarettes, uncomplicated; Z68.36 Body mass index [BMI] 36.0-36.9, adult | CPT/HCPCS: 99212 ==